=== PATIENT | female | born 1975 | race Caucasian/White ===

== ENCOUNTER → 2018-01-06 14:02 | Outpatient (CLI) | payer BC, SELFPAY ==
--- NOTE | 2018-01-06 14:15 | XR_ITS ---
EXAM: XR lumbar spine min 4V HISTORY: ITS.REASON: ACUTE LT SIDED LBP ORDERING PHYSICIAN: Feliberto Cesar MD PATIENT AGE: 42 years COMPARISON: None FINDINGS: Normal alignment. No fracture or dislocation. No lytic or blastic change. There is minimal osteophyte formation at L4 and L3 anteriorly and superiorly. There is a faint mixed density in the right pelvic region etiology indeterminate seen only on the AP view and may be due to artifact. IMPRESSION: No acute finding. Mild Lee change. Please see above for detail
== END ==
PROVIDERS: PCP Family Medicine; Visit Provider Family Medicine
DX: M54.42 Lumbago with sciatica, left side (principal)
CPT/HCPCS: 72110

== ENCOUNTER → 2018-08-01 12:36 | Outpatient (CLI) | payer BC, SELFPAY ==
--- NOTE | 2018-08-01 12:47 | NVE_ITS ---
Venous Exam Indications: 729.5 Pain in limb. IMPRESSIONS 1. There is no evidence of significant Reflux. 2. No evidence of deep or superficial vein thrombosis involving the left lower extremity Left lower extremity venous duplex evaluation. Doppler flow study including spectral analysis, color and bustillo scale imaging. Location: Vascular laboratory. Patient status: Outpatient. Tables: Venous flow and imaging: + +-------+ + Location Overall Flow properties + +-------+ + Left common femoral Patent Normal phasicity; spontaneous; normal augmentation; compressible + +-------+ + Left saphenofemoral junction Patent Compressible + +-------+ + Left profunda femoral Patent Compressible + +-------+ + Left femoral Patent Normal phasicity; spontaneous; normal augmentation; compressible + +-------+ + Left greater saphenous Patent Normal phasicity; spontaneous; normal augmentation; compressible + +-------+ + Left popliteal Patent Normal phasicity; spontaneous; normal augmentation; compressible + +-------+ + Left posterior tibial Patent Compressible + +-------+ + Left peroneal Patent Compressible + +-------+ + Left gastrocnemius Patent Compressible + +-------+ + Left soleal Patent Compressible + +-------+ + (Report amended ) Electronically signed by: Phong Gaitan [id number]
== END ==
PROVIDERS: PCP Family Medicine; Visit Provider Nurse Practitioner Family
DX: M79.605 Pain in left leg (principal)
CPT/HCPCS: 93971

== ENCOUNTER 2020-09-11 10:27 | Emergency (ER) | payer BC, SELFPAY ==
[2020-09-11 10:55] VITALS: BP 115/76; PULSE 79; RESP 20; TEMP 37.1; O2SAT 98; BMI 26.6
[2020-09-11 11:32] VITALS: BP 115/76; PULSE 79; RESP 20; TEMP 37.1; O2SAT 98
--- NOTE | 2020-09-11 11:32 | HMH.EDUTC ---
[facility] – [place] Disposition Clinical Impression: Exposure to COVID-19 virus Disposition: Home, Self-Care Condition on Discharge: Good Instructions: Preventing the Spread of Coronavirus Discharge Instructions Additional Instructions: Drink plenty of fluids. Take tylenol for pain or fever. Return if you begin to have difficulty breathing. Follow up with your regular doctor. GO TO THE ER FOR ANY WORSENING SYMPTOMS Referrals: Feliberto Cesar MD [Primary Care Provider] - Time of Disposition: 11:35 Medical Decision Making - Medical Records Medical records reviewed: No: I reviewed the patient's medical records. - Sulaiman Inquiry Pt receiving controlled substance: No Vital Signs: 09/11/20 10:55 09/11/20 11:32 Temperature 98.7 F 98.7 F Temperature Source Oral Pulse Rate 79 Pulse Rate [Right Brachial] 79 Respiratory Rate 20 20 Blood Pressure 115/76 Blood Pressure [Right Arm] 115/76 Blood Pressure Mean [Right Arm] 89 Blood Pressure Source [Right Arm] Automatic Cuff Blood Pressure Position [Right Arm] Sitting 02 Sat by Pulse Oximetry 98 Oxygen Delivery Method Room Air [facility] – [place] HPI - General Stated complaint: covid exposure Time Seen by Provider: 09/11/20 11:15 Mode of Arrival: Ambulatory Source of Information: Patient Limitations: No Limitations Description of Symptoms (Recalled from Triage Doc. by RN): PATIENT REQUESTING COVID TEST D/T EXPOSURE. TESTED POSITIVE YESTERDAY. STATES SHE RECEIVED HER SECOND COVID VACCINE ON FRIDAY AND HAD SYMPTOMS ON FRIDAY. SYMPTOMS HAVE SUBSIDED, C/O RUNNY NOSE TODAY HEENT Symptoms (Recalled from RN notes): Yes Resp Symptoms (Recalled from RN notes): No Skin Symptoms (Recalled from RN notes): No MS Symptoms (Recalled from RN notes): No Functional Status (Recalled from RN notes): WNL - History of Present Illness Provider Complaint: She states that her tested positive for covid-19 yesterday. She denies any symptoms except some achiness that she had on Friday (2 days ago) after getting her second covid vaccination (moderna). But these symptoms resolved quickly. - Related Data Home Medications Medication Instructions Recorded Confirmed Duloxetine HCl [Cymbalta] 60 mg PO DAILY 09/11/20 09/15/20 Omeprazole [Omeprazole 20mg 20 mg PO DAILY 09/11/20 09/15/20 Capsule] estradioL [Estradiol] 1 mg PO DAILY 09/11/20 09/15/20 Allergies Allergy/AdvReac Type Severity Reaction Status Date / Time No Known Allergies Allergy Verified 09/15/20 11:16 - Worker's Comp Is this a Worker's Comp case?: No H History - Hepatitis A Screen Drug use history?: No High risk sexual behaviors?: No History of sexually transmitted infection?: No Currently employed?: No Childcare worker?: No Do you have indoor plumbing?: Yes Do you have electricity?: Yes Attestation statement:: This patient has been screened for Hepatitis A risk factors. I have reviewed the patient's past medical history: Yes Medical History: Reports:: Diabetes Mellitus Type 2 - Social History Alcohol Intake: never Occupational Status: employed Comment: Strong family history of DVT, her mother has had one, also she has multiple cousins that have had them also. ROS Obtained: Yes All systems reviewed & no additional complaints - Constitutional Constitutional: Reports system reviewed and no additional complaints, except as docu - Eyes Eyes: Reports system reviewed and no additional complaints, except as docu - ENT Ears, Nose, Mouth, and Throat: Reports system reviewed and no additional complaints, except as docu - Cardiovascular Cardiovascular: Reports system reviewed and no additional complaints, except as docu - Respiratory Respiratory: Reports system reviewed and no additional complaints, except as docu - Gastrointestinal Gastrointestingal: Reports: system reviewed and no additional complaints, except as docu Physical Exam - General General appearance: alert,
== END 2020-09-11 11:42 | disposition home or self-care (01) ==
PROVIDERS: Emergency Provider Nurse Practitioner Family; PCP Family Medicine
DX: Z20.822 Contact with and (suspected) exposure to COVID-19 (principal)
CPT/HCPCS: 99202; G0463; U0003

== ENCOUNTER 2020-09-15 11:02 | Emergency (ER) | payer BC, SELFPAY ==
[2020-09-15 11:10] VITALS: BP 102/72; PULSE 82; RESP 18; TEMP 36.9; O2SAT 98; BMI 30.5
--- NOTE | 2020-09-15 11:18 | HMH.EDUTC ---
[facility] – [place] Disposition Clinical Impression: Exposure to COVID-19 virus Disposition: Home, Self-Care Condition on Discharge: Good Instructions: Preventing the Spread of Coronavirus Discharge Instructions Referrals: Feliberto Cesar MD [Primary Care Provider] - Time of Disposition: 11:20 Medical Decision Making - Sulaiman Inquiry Pt receiving controlled substance: No Vital Signs: 09/15/20 11:10 Temperature 98.4 F Temperature Source Oral Pulse Rate [Right Brachial] 82 Respiratory Rate 18 Blood Pressure [Right Arm] 102/72 L Blood Pressure Mean [Right Arm] 82 Blood Pressure Source [Right Arm] Automatic Cuff Blood Pressure Position [Right Arm] Sitting 02 Sat by Pulse Oximetry 98 Oxygen Delivery Method Room Air Orders (Tests/Meds): ORDERS Category Date Time Status Covid-19 Nasal PCR ([facility]) Routine Lab 09/15/20 11:04 Ordered [facility] – [place] HPI - General Stated complaint: covid test Time Seen by Provider: 09/15/20 11:18 Mode of Arrival: Ambulatory Source of Information: Patient Limitations: No Limitations Description of Symptoms (Recalled from Triage Doc. by RN): Covid retest HEENT Symptoms (Recalled from RN notes): No Resp Symptoms (Recalled from RN notes): No Skin Symptoms (Recalled from RN notes): No MS Symptoms (Recalled from RN notes): No Functional Status (Recalled from RN notes): wnl - History of Present Illness Provider Complaint: Patient's tested positive for COVID19 5 days ago after developing symptoms 1 week ago. Patient needs COVID19 test to return to work. No symptoms at this time and she actually got 2nd vaccine the same day he started feeling poorly. Relieving factors: none Exacerbating factors: none Associated symptoms: denies other symptoms Treatments prior to arrival: none - Related Data Home Medications Medication Instructions Recorded Confirmed Duloxetine HCl [Cymbalta] 60 mg PO DAILY 09/11/20 09/15/20 Omeprazole [Omeprazole 20mg 20 mg PO DAILY 09/11/20 09/15/20 Capsule] estradioL [Estradiol] 1 mg PO DAILY 09/11/20 09/15/20 Allergies Allergy/AdvReac Type Severity Reaction Status Date / Time No Known Allergies Allergy Verified 09/15/20 11:16 - Worker's Comp Is this a Worker's Comp case?: No [facility] History - Hepatitis A Screen Drug use history?: No High risk sexual behaviors?: No History of sexually transmitted infection?: No Currently employed?: No Childcare worker?: No Do you have indoor plumbing?: Yes Do you have electricity?: Yes Attestation statement:: This patient has been screened for Hepatitis A risk factors. I have reviewed the patient's past medical history: Yes Medical History: Reports:: Diabetes Mellitus Type 2 - Social History Alcohol Intake: never Occupational Status: employed Comment: Strong family history of DVT, her mother has had one, also she has multiple cousins that have had them also. ROS Obtained: Yes All systems reviewed & no additional complaints Physical Exam - General General appearance: alert, in no apparent distress - Head Head exam: normocephalic - Eye Eye exam: Present: PERRL - Respiratory Respiratory exam: Present: normal lung sounds bilaterally - Cardiovascular Cardiovascular exam: Present: regular rate, normal rhythm - Neurological Exam Neurological exam: Present: alert, oriented X3 - Psychiatric Psychiatric exam: Present: normal affect, normal mood - Skin Skin exam: Present: warm, dry, intact
[2020-09-15 11:24] VITALS: BP 102/72; PULSE 82; RESP 18; TEMP 36.9; O2SAT 98
== END 2020-09-15 11:24 | disposition home or self-care (01) ==
PROVIDERS: Emergency Provider Physician Assistant; PCP Family Medicine
DX: Z20.822 Contact with and (suspected) exposure to COVID-19 (principal); E11.9 Type 2 diabetes mellitus without complications
CPT/HCPCS: 99202; G0463; U0003

== ENCOUNTER 2021-03-22 09:28 | Emergency (ER) | payer BC, SELFPAY ==
[2021-03-22 10:20] VITALS: BP 139/87; PULSE 97; RESP 14; TEMP 37.1; O2SAT 99; BMI 31.6
[2021-03-22 11:00] VITALS: BP 139/87; PULSE 97; RESP 14; TEMP 37.1; O2SAT 99
--- NOTE | 2021-03-22 11:06 | HMH.EDUTC ---
[facility] – [place] Disposition Clinical Impression: Viral syndrome Disposition: Home, Self-Care Condition on Discharge: Good Instructions: DI for Viral Syndrome, DI for COVID-19 (Suspected or Confirmed ), Preventing the Spread of Coronavirus Discharge Instructions Additional Instructions: Drink plenty of fluids. Take tylenol or ibuprofen for pain or fever. Take the medications as directed. Follow up with your regular doctor. GO TO THE ER FOR ANY WORSENING SYMPTOMS Quarantine until you know the results of your covid-19 test. If it is positive, the health department should call you and give you further instructions about your length of Quarantine and other things. Notify your school or workplace of your results and follow their instructions regarding return to work/school. The cough medication (promethazine dm) will make you drowsy, so don't drive or operate heavy machinery after taking it. Prescriptions: Brompheniramine/Pseudoephed/Dm [Bromfed Dm Cough Syrup] 5 ml PO Q6HP PRN #240 ml PRN Reason: Cough Transmission Status: Received by [facility] Promethazine/Dextromethorphan [Promethazine-Dm Syrup] 5 ml PO Q6HP PRN #240 ml PRN Reason: Cough Transmission Status: Received by [facility] Azithromycin [Z-Chandrakant 250mg Tab*] 250 mg PO UD DOSE PK #6 tab Transmission Status: Received by [facility] Referrals: Feliberto Cesar MD [Primary Care Provider] - Forms: Work/School Release Time of Disposition: 11:11 Medical Decision Making - Medical Records Medical records reviewed: No: I reviewed the patient's medical records. - Sulaiman Inquiry Pt receiving controlled substance: No Vital Signs: 03/22/21 10:20 03/22/21 11:00 Temperature 98.8 F 98.8 F Temperature Source Oral Pulse Rate 97 H Pulse Rate [Right Brachial] 97 H Respiratory Rate 14 14 Blood Pressure 139/87 Blood Pressure [Right Arm] 139/87 Blood Pressure Mean [Right Arm] 104 Blood Pressure Source [Right Arm] Automatic Cuff Blood Pressure Position [Right Arm] Sitting 02 Sat by Pulse Oximetry 99 Oxygen Delivery Method Room Air [facility] [place] HPI - General Stated complaint: covid test Time Seen by Provider: 03/22/21 11:06 Mode of Arrival: Ambulatory Source of Information: Patient Limitations: No Limitations Description of Symptoms (Recalled from Triage Doc. by RN): PATIENT C/O COUGH, DIZZINESS, FEVER, RUNNY NOSE, BODY ACHES, AND HEADACHE SINCE YESTERDAY. RECENTLY TESTED POSITIVE FOR COVID HEENT Symptoms (Recalled from RN notes): Yes Resp Symptoms (Recalled from RN notes): Yes Skin Symptoms (Recalled from RN notes): No MS Symptoms (Recalled from RN notes): No Functional Status (Recalled from RN notes): WNL - History of Present Illness Provider Complaint: She states that for the past 2 days she has felt bad, had body aches, dry nonproductive cough, scratchy throat. She has been exposed to covid-19. She has not been vaccinated for covid-19. - Related Data Home Medications Medication Instructions Recorded Confirmed Duloxetine HCl [Cymbalta] 60 mg PO DAILY 09/11/20 09/15/20 Omeprazole [Omeprazole 20mg 20 mg PO DAILY 09/11/20 09/15/20 Capsule] estradioL [Estradiol] 1 mg PO DAILY 09/11/20 09/15/20 Previous Rx's Medication Instructions Recorded Azithromycin [Z-Chandrakant 250mg Tab*] 250 mg PO UD DOSE PK #6 tab 03/22/21 Brompheniramine/Pseudoephed/Dm 5 ml PO Q6HP PRN #240 ml 03/22/21 [Bromfed Dm Cough Syrup] Promethazine/Dextromethorphan 5 ml PO Q6HP PRN #240 ml 03/22/21 [Promethazine-Dm Syrup] Allergies Allergy/AdvReac Type Severity Reaction Status Date / Time No Known Allergies Allergy Verified 09/15/20 11:16 - Worker's Comp Is this a Worker's Comp case?: No [facility] History - Hepatitis A Screen Drug use history?: No High risk sexual behaviors?: No History of sexually transmitted infection?: No Currently employed?: No Childcare worker?: No Do you have indoor plumbing?: Yes Do you
--- NOTE | 2021-03-22 17:56 | PC.NURSE ---
PATIENT NOTIFIED OF POSITIVE COVID TEST AT THIS TIME
== END 2021-03-22 11:18 | disposition home or self-care (01) ==
PROVIDERS: Emergency Provider Nurse Practitioner Family; PCP Family Medicine
DX: U07.1 COVID-19 (principal); E11.9 Type 2 diabetes mellitus without complications
CPT/HCPCS: 99202; G0463; U0003

== ENCOUNTER 2021-03-26 07:58 | Outpatient (CLI) | payer BC, SELFPAY ==
[2021-03-26] VITALS (9 sets, daily range): BP systolic 96–116; BP diastolic 53–73; PULSE 60–70; RESP 16; TEMP 36.6–37.2; O2SAT 96–98
== END 2021-03-26 10:14 | disposition home or self-care (01) ==
LOC: INF 07:59
PROVIDERS: PCP Family Medicine; Visit Provider Family Medicine
DX: U07.1 COVID-19 (principal)
CPT/HCPCS: 96365

== ENCOUNTER → 2021-11-23 15:43 | Outpatient (CLI) | payer BC, SELFPAY ==
--- NOTE | 2021-11-23 15:47 | MM_ITS ---
PROCEDURE INFORMATION: Exam: Bilateral Screening 3D Mammography Exam date and time: 11/23/2021 3:58 PM Age: 46 years old Clinical indication: Screening examination TECHNIQUE: Imaging protocol: Bilateral Screening tomosynthesis and 2D mammography including computer-aided detection (CAD) when performed. COMPARISON: [facility]MSB DIG MAMM-SCREEN STEPHANIE 02/13/2016 8:37 AM FINDINGS: MAMMOGRAPHY: Breast composition: There are scattered areas of fibroglandular density. Mass: None. Architectural distortion: None. Calcifications: No suspicious calcifications. Asymmetric density: None. Skin thickening: None. Axillary adenopathy: None. IMPRESSION: No mammographic evidence of malignancy. Annual screening is recommended unless otherwise clinically indicated. ASSESSMENT: BI-RADS Category 1: Negative
== END ==
PROVIDERS: PCP Family Medicine; Visit Provider Physician Assistant
DX: Z12.31 Encounter for screening mammogram for malignant neoplasm of breast (principal)
CPT/HCPCS: 77063; 77067

== ENCOUNTER → 2021-11-24 09:58 | Outpatient (CLI) | payer BC, SELFPAY ==
[2021-11-24 11:22] LABS: Alanine Aminotransferase 24 U/L (12-78); Albumin Level 3.8 g/dl (3.5-5.0); Albumin/Globulin Ratio 1.5 (1.1-1.8); Alkaline Phosphatase 45 U/L (38-126); Aspartate Amino Transferase 26 U/L (14-36); Bilirubin,Total 0.4 mg/dl (0.2-1.3); Blood Urea Nitrogen 15 mg/dl (7-17); Calcium 8.9 mg/dl (8.4-10.2); Carbon Dioxide 30 mmol/L (22.0-30.0); Chloride 106 mmol/L (98-107); Chol/HDL Ratio 3.3 (1-3.5); Cholesterol 211 mg/dl (140-200); Estimated Glomerular Filt Rate 77 ml/min (>60); GFR (African American) 93 ML/MIN (>60); Globulin 2.5 g/dL (1.3-3.2); Glucose 94 mg/dl (74-100); HDL Cholesterol 63 mg/dl (40-60); Sodium 140 mmol/L (136-145); Total Protein,Serum 6.3 g/dl (6.3-8.2); Triglycerides 141 mg/dl (30-150); VLDL Cholesterol 28 mg/dL (0-40)
[2021-11-24 11:33] LABS: Direct LDL Cholesterol 104.96 mg/dL (100-129)
[2021-11-24 11:39] LABS: 25-OH Vitamin D, Total 37.6 ng/mL (30-100)
[2021-11-24 11:41] LABS: Hemoglobin A1C 5.4 % (4.0-6.0)
[2021-11-24 11:53] LABS: Thyroid Stimulating Hormone 0.69 uIU/mL (0.465-4.68)
== END ==
PROVIDERS: Visit Provider Physician Assistant
DX: E78.2 Mixed hyperlipidemia; R63.5 Abnormal weight gain; R79.89 Other specified abnormal findings of blood chemistry; Z86.39 Personal history of other endocrine, nutritional and metabolic disease
CPT/HCPCS: 36415; 80053; 80061; 82306; 83036; 84443

== ENCOUNTER 2022-10-07 18:45 | Emergency (ER) | payer BC, SELFPAY ==
[2022-10-07 19:40] VITALS: BP 149/81; PULSE 74; RESP 20; TEMP 36.8; O2SAT 99; BMI 32.1
--- NOTE | 2022-10-07 20:20 | EXP.UTC ---
Discharge Plan Disposition Patient Disposition: Home, Self-Care Condition: Good Prescriptions Prescriptions: New benzonatate 100 mg capsule 100 mg PO TID PRN (Reason: cough) Qty: 30 0RF guaifenesin [Mucinex] 600 mg tablet extended release 12hr 600 - 1,200 mg PO BID PRN (Reason: cough) Qty: 20 0RF azithromycin [Zithromax Z-Chandrakant] 250 mg tablet See Rx Instructions .ROUTE .COMPLEX 5 Days Qty: 6 0RF Rx Instructions: For 250 mg dose pack: take 500 mg today (day 1), then 250 mg for 4 days (days 2-5) prednisone [prednisone] 20 mg tablet 20 mg PO BID 5 Days Qty: 10 0RF albuterol sulfate [Proventil HFA] 90 mcg/actuation HFA aerosol inhaler 1 inh inhalation Q6H PRN (Reason: shortness of breath or wheezing) Qty: 8.5 0RF No Action estradiol 1 MG tablet 1 mg PO DAILY omeprazole 20 MG capsule,delayed release(DR/EC) 20 mg PO DAILY duloxetine 60 MG capsule,delayed release(DR/EC) 60 mg PO DAILY Referrals Follow up/Referrals: Feliberto Cesar MD [Primary Care Provider] - See instructions Activity Restrictions/Add. Instructions Additional Instructions/Restrictions: Start antibiotic . Be sure to complete entire prescription even if feeling better Monitor temp. Tylenol every 4 hours as needed and / or ibuprofen every 6 hours as needed ( As long as your primary care physician has told you that it ok to take both. For fever/aches/pains ER if no less than 101 despite Tylenol or Motrin Humidifier/vaporizer or hot steamy shower Inhaler every 4-6 hours as needed like we discussed. If unsure how to use it, ask pharmacist to demonstrate how. Should help open airways and improve cough, wheezing, and shortness of breath Mucinex during the day for your cough and cough suppressant only at night. Be sure to drink lots of water. *Tessalon Perles will not cause drowsiness but use at bedtime to help stop cough so that you may get some rest. *Start steroid tomorrow. Helps with inflammation therefore, cough and wheezing. Follow directions on the package. Reviewed side effects. Patient reports taking them before. Follow up IMMEDIATELY for new or worsening of symptoms OR no noticeable improvement over the next 48-72 hours. 911 immediately for any life threatening symptoms such as chest pain or difficulty breathing Clinical Impressions Clinical Impression: Bronchitis Sinusitis Qualifiers: Sinusitis location: unspecified location Chronicity: unspecified Qualified Code(s): J32.9 - Chronic sinusitis, unspecified Stand Alone Forms Stand Alone Forms: Work/School Release Instructions Patient Instructions: Sinus Headache, Acute Bronchitis, DI for Sinusitis Discharge ED Provider: Florinda Benitez [facility] [place] General Stated complaint: Cough,Congestion,SOA,fever Mode of Arrival: Ambulatory Source of Information: Patient Limitations: No Limitations Time Seen by Provider: 10/07/22 20:20 Description of Symptoms (Recalled from Triage Doc. by RN): shortness of breath, fever, cough, URBAN, wheezing. HEENT Symptoms (Recalled from RN notes): Yes Resp Symptoms (Recalled from RN notes): No Skin Symptoms (Recalled from RN notes): No MS Symptoms (Recalled from RN notes): No Functional Status (Recalled from RN notes): n/ History of Present Illness Provider Complaint: Patient states that she has been sick for over a week States that she has been having sinus congestion, cough, chest congestion and non-productive cough State that at times she will cough so much feels like it makes her a little SOA States that she has been taking OTC medications but nothing is helping and she was worried and wanted to come in and get something before it got any worse States that in the past when she got sick like this she used inhaler Related Data Home Medications Medication Instructions Recorded Confirmed duloxetine 60 mg capsule,delayed 60 mg PO DAILY Depression 09/11/20 10/07/22 release estradiol 1
[2022-10-07 21:11] VITALS: BP 149/81; PULSE 74; RESP 20; TEMP 36.8; O2SAT 99
== END 2022-10-07 21:10 | disposition home or self-care (01) ==
PROVIDERS: Emergency Provider Nurse Practitioner; PCP Family Medicine
DX: J20.9 Acute bronchitis, unspecified (principal); J01.90 Acute sinusitis, unspecified; R50.9 Fever, unspecified
CPT/HCPCS: 96372; 99212; 99214; G0463; J0696

== ENCOUNTER 2022-11-01 16:28 | Emergency (ER) | payer BC, SELFPAY ==
[2022-11-01 16:35] VITALS: BP 128/78; PULSE 81; RESP 20; TEMP 36.9; O2SAT 97; BMI 34.0
--- NOTE | 2022-11-01 16:49 | EXP.UTC ---
Discharge Plan Disposition Patient Disposition: Home, Self-Care Condition: Good Prescriptions Prescriptions: New acyclovir 800 mg tablet 800 mg PO DIRECTED 7 Days Qty: 35 0RF Rx Instructions: One tablet five times daily for seven days No Action estradiol 1 MG tablet 2 mg PO DAILY omeprazole 20 mg capsule,delayed release(DR/EC) 20 mg PO DAILYP PRN (Reason: Acid Reflux) duloxetine 60 mg capsule,delayed release(DR/EC) 60 mg PO DAILY Label Comments: TAKE 1 CAPSULE BY MOUTH ONCE DAILY Wegovy 0.25 mg/0.5 mL Pen Injector 0.25 mg SQ WEEKLY Rx Instructions: administer weeks 1 through 4 of therapy Referrals Follow up/Referrals: Feliberto Cesar MD [Primary Care Provider] - See instructions Activity Restrictions/Add. Instructions Additional Instructions/Restrictions: Benadryl may help with itching Do not scratch Take medication as prescribed Topical calamine lotion may help to soothe the rash Clinical Impressions Clinical Impression: Shingles Instructions Patient Instructions: DI for Shingles, Shingles, Acyclovir Discharge ED Provider: Florinda Benitez [facility] [place] HPI General Stated complaint: rash Mode of Arrival: Ambulatory Source of Information: Patient Limitations: No Limitations Time Seen by Provider: 11/01/22 16:50 Description of Symptoms (Recalled from Triage Doc. by RN): PATIENT C/O RASH/WELPS TO LOWER LEG AND MID-BACK AREA THAT STARTED 5 DAYS AGO. AREAS ARE RED AND RAISED AND PATIENT C/O BURNING AND ITCHING HEENT Symptoms (Recalled from RN notes): No Resp Symptoms (Recalled from RN notes): No Skin Symptoms (Recalled from RN notes): Yes MS Symptoms (Recalled from RN notes): No Functional Status (Recalled from RN notes): WNL History of Present Illness Provider Complaint: Patient states that she had a rash on her left leg about 5 days ago that was a little like blistery and thought they may have been bug bitesStates that today she was having a burning/itching like pain on her left back and side and noticed a rash that has come out today and spread States that her shirt irritates when it touches it and it neves and itches worried she may have shingles Related Data Home Medications Medication Instructions Recorded Confirmed estradiol 1 mg tablet 2 mg PO DAILY HORMONE REPLACEMENT 09/11/20 11/01/22 duloxetine 60 mg capsule,delayed 60 mg PO DAILY Depression 11/01/22 11/01/22 release omeprazole 20 mg capsule,delayed 20 mg PO DAILYP PRN Acid Reflux 11/01/22 11/01/22 release semaglutide (weight loss) 0.25 0.25 mg SQ WEEKLY Weight loss 11/01/22 11/01/22 mg/0.5 mL subcutaneous pen injector (Wegovy) Previous Rx's Medication Instructions Recorded acyclovir 800 mg tablet 800 mg PO DIRECTED 7 days #35 11/01/22 tabs Allergies Allergy/AdvReac Type Severity Reaction Status Date / Time No Known Allergies Allergy Verified 10/07/22 20:00 Worker's Comp Is this a Worker's Comp case?: No [facility] Disclaimer: The information contained in this section may have been updated after the patient was seen, as this information can be updated by other users. Social History (Updated 10/07/22 @ 21:01 by Florinda Benitez APRN) Smoking Status: Unknown if ever smoked alcohol intake: never current occupational status: employed Travel in the last 8 weeks: None ROS Obtained: Yes All systems reviewed & no additional complaints except as documented and Yes Systems reviewed as appropriate & no additional complaints except as documented Constitutional Constitutional: Reports system reviewed and no additional complaints, except as documented and Reports as per HPI ENT Ears, Nose, Mouth, and Throat: Reports system reviewed and no additional complaints, except as documented and Reports as per HPI Cardiovascular Cardiovascular: Reports system reviewed and no additional complaints, except as documented and Reports as per HPI Respiratory Respiratory: Repor
[2022-11-01 17:00] VITALS: BP 128/78; PULSE 81; RESP 20; TEMP 36.9; O2SAT 97
== END 2022-11-01 17:02 | disposition home or self-care (01) ==
PROVIDERS: Emergency Provider Nurse Practitioner; PCP Family Medicine
DX: B02.8 Zoster with other complications (principal)
CPT/HCPCS: 99212; 99214; G0463

== ENCOUNTER 2023-08-06 16:32 | Outpatient (CLI) | payer BC, SELFPAY ==
--- OUTSIDE RECORDS SUMMARY | 2023-08-06 16:34 | XMS_ITS | Patient Health Record ---
Author Name Unknown Organization [facility] Address [address] [facility] [address] [address] [address] [place] [address] Care Team Providers Care Behavioral Health Clinician Name Role Phone Jia Costa Unavailable [phone] Irene Rao Unavailable [phone] Reason For Referral Reason Dr. Dominic Booker in [facility] for screening colonoscopy Diagnosis 1 Screening for colon cancer (Z12.11) Referral Organization [facility] Referring Provider First Name Irene Referring Provider Last Name Maira Referring Provider Speciality OB - Gynec ology Referred Provider Specialty Gastroentero logy General Notes Katherine Bateman 11/18 02:55:29 PM >Faxed referral to Dr Lou office in [facility], once received they will call and schedule pt an appt with there office Referral Priority Routine Medications Medication SIG (Take, Route, Fr equency, Duration) Notes Start Date End Date Status Estradiol 2 MG 1 tablet Orally Once a day for 90 days 11/18/2022 Active Estradiol 2 MG 1 tablet Orally Once a day for 90 days Active Omeprazole 20 MG Oral for 90 Days Active Wegovy Active DULoxetine HCl 60 MG Oral for 30 Days Active Social History Tobacco Use: Social History Observation Description Date Details (start date - stop date) Never Smoker NA - NA Sex Assigned At : Social History Observation Description Sex Assigned At Female Tobacco Use/Smoking Question Answer Notes Are you a nonsmoker Alcohol Screen Question Answer Notes Did you have a drink contain ing alcohol in the past year? Yes How often did you have a dri nk containing alcohol in the past year? Monthly or less (1 point) Points 1 Interpretation Negative Vital Signs Blood pressure diastolic 70 mm Hg 11/18/2022 Height 68 in 11/18/2022 Blood pressure systolic 124 mm Hg 11/18/2022 Weight 221.4 lbs 11/18/2022 BMI 33.66 kg/m2 11/18/2022 Encounters Encounter [facility] Date [facility] [address] [place] [address] 11/16/2022 Irene Duartemayda [facility] [address] REPLACED [address] [facility] [address] [place] [address] 11/18/2022 Irene Duartemayda Encounter for gynecological examination (general) (routine) without abnormal findings Z01.419 ; Visit for screening mammogram Z12.31 ; Postmenopausal HRT (hormone replacement therapy) Z79.890 and Screening for colon cancer Z12.11 Assessments Encounter Date Diagnosis (ICD Code) Assessment Notes Treat ment Notes Treatment Clinical Notes 11/18/2022 Encounter for gynecological examination (general) (routine) without abnormal findings (ICD-10 - Z01.419) 11/18/2022 Visit for screening mammogram (ICD-10 - Z12.31) 11/18/2022 Postmenopausal HRT (hormone replacement therapy) (ICD-10 - Z79.890) 11/18/2022 Screening for colon cancer (ICD-10 - Z12.11) Plan Of Treatment Next Appt Details Provider Name:Irene Rao, 11/20/2023 10:15:00 AM, [address] [facility] [facility], [place], [address], Insurance Providers Payer Name Payer Address Payer Phone Subscriber Number Group Number Insured Name Patient Relationship to Insured Coverage Start Date Coverage End Date [employer] [address] [place] [address] [id number] Ailyn Gerber Self - patient is the insured 2 Medical (General) History Medical History History ICD Code abnormal pap acid reflux anxiety depression diabetes uterine fibroid obesity UYI Yeast infections Menometrorrhagia Surgical History Surgery Date(Month/Year) c/s x2 07-17-2020 [facility] BSO myomectomy gastric sleeve 2018 D&C 1998 Hospitalization History Reason Date(Month/Year) x2
--- NOTE | 2023-08-06 16:47 | MM_ITS ---
PROCEDURE INFORMATION: Exam: MG Bilateral Screening 3D Mammography Exam date and time: 08/06/2023 4:32 PM Age: 47 years old Clinical indication: Screening examination. Paternal aunt had breast cancer. TECHNIQUE: Imaging protocol: Bilateral Screening tomosynthesis and 2D mammography including computer-aided detection (CAD) when performed. COMPARISON: 1. MG MM DIG SCREENING MAMM BI W/CAD 11/23/2021 3:58 PM 2. MG DMSB DIG MAMM-SCREEN STEPHANIE 02/13/2016 8:37 AM FINDINGS: MAMMOGRAPHY: Breast composition: There are scattered areas of fibroglandular density. Mass: None. Architectural distortion: None. Calcifications: No suspicious calcifications. Asymmetric density: None. Skin thickening: None. Axillary adenopathy: None. IMPRESSION: No mammographic evidence of malignancy. Annual screening is recommended unless otherwise clinically indicated. ASSESSMENT: BI-RADS Category 1: Negative
== END 2023-08-06 23:59 ==
LOC: RAD 16:33
PROVIDERS: PCP Family Medicine; Visit Provider Family Medicine
DX: Z12.31 Encounter for screening mammogram for malignant neoplasm of breast (principal)
CPT/HCPCS: 77063; 77067

== ENCOUNTER 2023-09-05 11:39 | Outpatient (CLI) | payer BC, SELFPAY ==
--- NOTE | 2023-09-05 11:47 | XR_ITS ---
FINAL REPORT CLINICAL HISTORY: BILATERAL BACK PAIN COMPARISON: None FINDINGS: 5 views of the lumbar spine were obtained. There is no evidence of fracture or dislocation. The vertebral alignment is normal. Mild degenerative changes present with osteophyte formation. Facet arthropathy is present in the lower lumbar spine. Mild vascular calcifications are identified. There are postop changes in the upper abdomen. No paraspinous soft tissue abnormalities identified. IMPRESSION: No acute bony abnormality. Degenerative change as described. Reviewed, Interpreted and Dictated by Casey Avina III, MD Transcribed by Delphine Gar Authenticated and . [facility]
== END 2023-09-05 23:59 ==
LOC: RAD 11:41
PROVIDERS: PCP Family Medicine; Visit Provider Family Medicine
DX: M47.816 Spondylosis without myelopathy or radiculopathy, lumbar region (principal); M54.50 Low back pain, unspecified
CPT/HCPCS: 72110

== ENCOUNTER 2024-03-16 16:03 | Emergency (ER) | payer BC, SELFPAY ==
[2024-03-16] VITALS (8 sets, daily range): BP systolic 110–126; BP diastolic 68–83; PULSE 70–84; RESP 16–18; TEMP 36.8–37; O2SAT 95–100; BMI 24.3
--- NOTE | 2024-03-16 16:22 | PC.NURSE ---
pt arrived to ed from [facility] via wheelchair
--- NOTE | 2024-03-16 16:32 | PC.NURSE ---
DR PIÑA AT BEDSIDE
--- NOTE | 2024-03-16 17:08 | PC.NURSE ---
I rounded on pt and took her a box of tissues. No needs voiced. pt states her pain has slightly improved. call scott in reach.
--- NOTE | 2024-03-16 17:09 | HMH.EDGENADL ---
Discharge Plan Disposition Patient Disposition: Home, Self-Care Prescriptions Prescriptions: New amoxicillin-pot clavulanate 875-125 mg tablet 1 tab PO BID 7 Days Qty: 14 0RF No Action estradiol 1 MG tablet 2 mg PO DAILY omeprazole 20 mg capsule,delayed release(DR/EC) 20 mg PO DAILYP PRN (Reason: Acid Reflux) duloxetine 60 mg capsule,delayed release(DR/EC) 60 mg PO DAILY Patient Comments: TAKE 1 CAPSULE BY MOUTH ONCE DAILY Wegovy 0.25 mg/0.5 mL Pen Injector 0.25 mg SQ WEEKLY Rx Instructions: administer weeks 1 through 4 of therapy acyclovir 800 mg tablet 800 mg PO DIRECTED 7 Days Qty: 35 0RF Rx Instructions: One tablet five times daily for seven days Referrals Follow up/Referrals: Feliberto Cesar MD [Primary Care Provider] - See instructions Activity Restrictions/Add. Instructions Additional Instructions/Restrictions: Call your family doctor to establish care for this visit to the emergency department and schedule follow-up within 48 hours to ensure improvement. If you have any worsening of your condition or any other concerning signs or symptoms, return to the emergency department or your primary care doctor for further evaluation. Talk to your family doctor about neurology follow-up with Dr. Madera regarding head imaging with mild ventriculomegaly (fluid spaces in the brain). Augmentin twice daily for 7 days. Take Tylenol 1000 mg every 6 hours (4 times daily) and ibuprofen 400 mg every 6 hours (4 times daily) as needed with food and water to prevent GI upset and kidney damage. Clinical Impressions Clinical Impression: Headache, Bacterial sinusitis Print Language Print Language: Singaporean Discharge ED Provider: Koko Steele General Adult HPI General Chief complaint: Headache Stated complaint: URBAN, tunnel vision Time Seen by Provider: 03/16/24 16:29 Mode of Arrival: Wheelchair Source of Information: Patient Limitations: No Limitations Description of Symptoms (Recalled from ER Triage Doc. by RN): PT REPORTS HEAD CONGESTION AND NOT FEELING WELL FOR 2-3 DAYS. REPORTS HEADACHE THAT HAS BEEN ONGOING, WORSE TODAY. LIGHT SENSITIVE, TUNNEL VISION. REPORTS CHILLS AND PAIN TO BILATERAL SIDE UNDER RIBS. History of Present Illness HPI narrative: Please note that above description of symptoms, in this electronic medical record under categorization of recalled from ER triage doctor by RN are reflective of an initial nursing assessment, however, is not reflective of my full history and physical exam that was personally taken and clarified. Consequentially, this preceding description of symptoms, which may include the patient's categorized chief complaint in the EMR, do not reflect my personal clinical impression, and the ultimate description of history of present illness and patient stated complaints should be deferred to this section of the note. Unless stated otherwise or congruent with this section of the note, additional signs, symptoms, or incongruence should be interpreted as inaccurate with my clinical impression. Related Data Home Medications ?Medication ?Instructions ?Recorded ?Confirmed estradiol 1 mg tablet 2 mg PO DAILY HORMONE REPLACEMENT 09/11/20 11/01/22 duloxetine 60 mg capsule,delayed 60 mg PO DAILY Depression 11/01/22 11/01/22 release omeprazole 20 mg capsule,delayed 20 mg PO DAILYP PRN Acid Reflux 11/01/22 11/01/22 release semaglutide (weight loss) 0.25 0.25 mg SQ WEEKLY Weight loss 11/01/22 11/01/22 mg/0.5 mL subcutaneous pen injector (Sana) Previous Rx's ?Medication ?Instructions ?Recorded acyclovir 800 mg tablet 800 mg PO DIRECTED 7 days #35 11/01/22 tabs amoxicillin 875 mg-potassium 1 tab PO BID 7 days #14 tabs 03/16/24 clavulanate 125 mg tablet Allergies Allergy/AdvReac Type Severity Reaction Status Date / Time No Known Allergies Allergy Verified 10/07/22 20:00 [facility] Disclaimer: The information c
--- NOTE | 2024-03-16 17:19 | CT_ITS ---
PROCEDURE INFORMATION: Exam: CTA Head With Contrast, Venography Exam date and time: 03/16/2024 6:02 PM Age: 48 years old Clinical indication: Headache; Additional info: On estrogen, severe frontal URBAN with blurry vision TECHNIQUE: Imaging protocol: Computed tomography angiography of the head with contrast. Exam focused on the veins. 3D rendering (Not supervised by radiologist): MIP and/or 3D reconstructed images were created by the technologist. Radiation optimization: All CT scans at this facility use at least one of these dose optimization techniques: automated exposure control; mA and/or kV adjustment per patient size (includes targeted exams where dose is matched to clinical indication); or iterative reconstruction. Contrast material: ISOVUE 370; Contrast volume: 80 ml; Contrast route: INTRAVENOUS (IV); COMPARISON: No relevant prior studies available. FINDINGS: Superior sagittal sinus: Patent. Straight sinus: Patent. Transverse sinuses: Patent. Sigmoid sinuses: Patent. Internal jugular veins: Limited visualized internal jugular veins are patent. Cerebral ventricles: There is ventriculomegaly. Paranasal sinuses: Moderate to severe paranasal sinus disease. Soft tissues: Unremarkable. IMPRESSION: 1. Negative for dural venous sinus thrombosis. 2. Prominent ventriculomegaly which appears disproportionate for volume loss, normal pressure hydrocephalus not excluded.
--- NOTE | 2024-03-16 17:20 | PC.NURSE ---
Addendum entered by Emeli Andrade RN 03/16/24 17:38: TIME OF NOTE SHOULD HAVE BEEN 1620 Original Note: PATIENT IN [facility] LOBBY AT THIS TIME. PATIENT C/O SEVERE HEADACHE WITH BRIGHT PERIPHERIAL VISION. PATIENT STATES IT IS THE WORSE HEADACHE SHE HAS EVER HAD. PATIENT TRANSPORTED TO ER VIA WHEELCHAIR AND [facility] STAFF ASSISTANCE AT THIS TIME. PATIENT'S AT BEDSIDE
[2024-03-16 17:25] LABS: Chloride 105 mmol/L (98-107); Potassium 3.9 mmoL/L (3.5-5.1); Sodium 138 mmol/L (136-145)
[2024-03-16 17:28] LABS: Anion Gap 8.9 mEq/L (5-15); Blood Urea Nitrogen 14 mg/dl (7-17); Calcium 8.7 mg/dl (8.4-10.2); Carbon Dioxide 28 mmol/L (22.0-30.0); Creatinine Clearance Estimated 99 mL/min (50-200); Estimated Glomerular Filt Rate 76 ml/min (>60); GFR (African American) 92 ML/MIN (>60); Glucose 90 mg/dl (74-100)
== END 2024-03-16 19:11 | disposition home or self-care (01) ==
LOC: UTC 16:07 → ER 16:22
PROVIDERS: Emergency Provider Emergency Medicine; PCP Family Medicine
DX: G44.89 Other headache syndrome (principal); J01.80 Other acute sinusitis; H53.8 Other visual disturbances
CPT/HCPCS: 70496; 80048; 96365; 96375; 99285; J0131; J0780; J1100; J1200; J1885; J3475; J7120; Q9967

== ENCOUNTER 2024-04-12 09:16 | Emergency (ER) | payer BC, SELFPAY ==
[2024-04-12 09:43] VITALS: BP 101/62; PULSE 69; RESP 20; TEMP 36.4; O2SAT 100; BMI 25.0
--- NOTE | 2024-04-12 09:51 | ED_ITS ---
Discharge Plan Disposition Patient Disposition: Home, Self-Care Condition: Good Prescriptions Prescriptions: New cefdinir 300 mg capsule 300 mg PO BID 10 Days Qty: 20 0RF phenazopyridine [Pyridium] 200 mg tablet 200 mg PO Q8H 2 Days Qty: 6 0RF fluconazole 150 mg tablet 150 mg PO ONCE Qty: 1 0RF No Action amoxicillin-pot clavulanate 875-125 mg tablet 1 tab PO BID 7 Days Qty: 14 0RF fluconazole 150 mg tablet 150 mg PO Q3D Qty: 2 0RF Rx Instructions: may repeat second dose 72 hrs after first dose if symptoms persist estradiol 1 MG tablet 2 mg PO DAILY omeprazole 20 mg capsule,delayed release(DR/EC) 20 mg PO DAILYP PRN (Reason: Acid Reflux) duloxetine 60 mg capsule,delayed release(DR/EC) 60 mg PO DAILY Patient Comments: TAKE 1 CAPSULE BY MOUTH ONCE DAILY Wegovy 0.25 mg/0.5 mL Pen Injector 0.25 mg SQ WEEKLY Rx Instructions: administer weeks 1 through 4 of therapy acyclovir 800 mg tablet 800 mg PO DIRECTED 7 Days Qty: 35 0RF Rx Instructions: One tablet five times daily for seven days Referrals Follow up/Referrals: Feliberto Cesar MD [Primary Care Provider] - See instructions Activity Restrictions/Add. Instructions Additional Instructions/Restrictions: *Increase fluids. Water not Soda or Tea *Start antibiotic immediately and be sure to take as ordered for the FULL length of time although you should start to see improvement over the next 48 hours *Pyridium as needed Remember this medication will turn your urine . This is normal but it will stain what ever it gets on *You should not use Pyridium for more than 48 hours. If so , follow up with your primary physician to review urine culture and ensure that antibiotic is adequate for infection *Be SURE to follow up anytime for new or worsening symptoms with your family doctor. AND in 48 hours for urine culture results with your family doctor, if you do not have a doctor then you may call back to the [facility] for urine culture results and further treatment. We do recommend that you choose and establish care with a Primary Care Physician. ?AND follow up with them ?in 10-14 days to repeat UA to ensure infection is resolved and blood no longer present *Be sure to let your PCP know that we sent urine cultures from the [facility] so they can follow up to ensure that you area the on the correct antibiotic Call your doctor office and make appointment for 48 hours (2 days from today) ?to follow up and get the results of your urine culture and further treatment Follow up immediately for new or worsening symptoms Clinical Impressions Clinical Impression: Urinary tract infection Instructions Patient Instructions: DI for Urinary Tract Infection (UTI), Cefdinir, Phenazopyridine Print Language Print Language: Greek Discharge ED Provider: Florinda Benitez [facility] General Stated complaint: Pain and frquent uriation Mode of Arrival: Ambulatory Source of Information: Patient Time Seen by Provider: 04/12/24 09:51 Description of Symptoms (Recalled from Triage Doc. by RN): PAIN WITH URINATING AND SPASMS IN BACK HEENT Symptoms (Recalled from RN notes): No Resp Symptoms (Recalled from RN notes): No Skin Symptoms (Recalled from RN notes): No MS Symptoms (Recalled from RN notes): No Functional Status (Recalled from RN notes): WNL History of Present Illness Provider Complaint: Patient states that she noticed yesterday that she was having achy like feeling in her lower back and some burning with urination and feeling of urgency and frequency and this morning it seemed to be getting worse so she took an AZO and came to get checked Denies fever, chills, and denies hx of kidney stones Related Data Home Medications ?Medication ?Instructions ?Recorded ?Confirmed estradiol 1 mg tablet 2 mg PO DAILY HORMONE REPLACEMENT 09/11/20 11/01/22 duloxetine 60 mg capsule,delayed 60 mg PO DAILY Depression 11/01/22 11/01/22 release omeprazole 20 mg capsule,delayed 20 mg PO DAILYP PRN Acid Reflux 11/01/22 11/01/22 release semaglutide (weight loss) 0.25 0.25 mg SQ WEEKLY Weight loss 11/01/22 11/01/22 mg/0.5 mL subcutaneous pen injector (Sana) Previous Rx's ?Medication ?Instructions ?Recorded acyclovir 800 mg tablet 800 mg PO DIRECTED 7 days #35 11/01/22 tabs amoxicillin 875 mg-potassium 1 tab PO BID 7 days #14 tabs 03/16/24 clavulanate 125 mg tablet fluconazole 150 mg tablet 150 mg PO Q3D 2 doses #2 tabs 03/17/24 cefdinir 300 mg capsule 300 mg PO BID 10 days #20 caps 04/12/24 fluconazole 150 mg tablet 150 mg PO ONCE 1 dose #1 tab 04/12/24 phenazopyridine 200 mg tablet 200 mg PO Q8H pain 2 days #6 tabs 04/12/24 (Pyridium) Allergies Allergy/AdvReac Type Severity Reaction Status Date / Time No Known Allergies Allergy Verified 10/07/22 20:00 Worker's Comp Is this a Worker's Comp case?: No [facility] Disclaimer: The information contained in this section may have been updated after the patient was seen, as this information can be updated by other users. Social History (Updated 10/07/22 @ 21:01 by Florinda Benitez APRN) Smoking Status: Never smoker alcohol intake: never current occupational status: employed Travel in the last 8 weeks: None ROS Obtained: Yes All systems reviewed & no additional complaints except as documented and Yes Systems reviewed as appropriate & no additional complaints except as documented Constitutional Constitutional: Reports system reviewed and no additional complaints, except as documented, Reports as per HPI, Denies body ache, Denies chills and Denies fever(s) ENT Ears, Nose, Mouth, and Throat: Reports system reviewed and no additional complaints, except as documented and Reports as per HPI Cardiovascular Cardiovascular: Reports system reviewed and no additional complaints, except as documented and Reports as per HPI Respiratory Respiratory: Reports system reviewed and no additional complaints, except as documented and Reports as per HPI Gastrointestinal Gastrointestingal: Reports system reviewed and no additional complaints, except as documented and as per HPI; Denies abdominal pain, nausea or vomiting Genitourinary Female Genitourinary: Reports system reviewed and no additional complaints, except as documented, Reports as per HPI, Reports dysuria, Reports flank pain, Reports urinary frequency and Reports urinary urgency Physical Exam General General appearance: alert and in no apparent distress ENT ENT exam: Present mucous membranes moist Respiratory Respiratory exam: Present normal lung sounds bilaterally; Absent respiratory distress or wheezes Cardiovascular Cardiovascular exam: Present regular rate, normal rhythm and normal heart sounds Abdominal Exam Abdominal exam: Present soft and normal bowel sounds; Absent distention or tenderness Back Exam Back 1 view image: 2 1. reports achy like feeling, denies radiation of pain and denies loss of control of bowel or bladder Neurological Exam Neurological exam: Present alert, oriented X3 and normal gait Medical Decision Making Medical Records Screening: Per USPSTF and CDC recommendations, given the prevalence of disease in our region, it is our hospital?s policy to screen for HIV and viral Hepatitis for all patients aged 18 and over and those with ongoing risk factors. Sulaiman Inquiry Pt receiving controlled substance: No Sulaiman was queried for this patient: No Vital Signs: 04/12/24 09:43 Temperature 97.6 F Temperature Source Oral Pulse Rate [Left Brachial] 69 Respiratory Rate 20 Blood Pressure [Left Arm] 101/62 L Blood Pressure Mean [Left Arm] 75 02 Sat by Pulse Oximetry 100 Lab Data Lab results reviewed: Yes I reviewed the patient's lab results. Medical Decision Narrative: Patient has taken azo prior to arrival
[2024-04-12 10:02] LABS: Apearance,Urine Turbid (Clear); Color,Urine Orange (Yellow); PH,Urine 8.5 (5.0-8.5); Specific Gravity, Urine 1.015 (1.005-1.030)
[2024-04-12 10:03] LABS: Glucose,Urine (UA) 250 (Negative); Ketones,Urine SMALL (Negative); Protein,Urine 3+ (Negative)
[2024-04-12 10:04] LABS: Bilirubin,Urine 3+ (Negative); Blood, Urine 2+ (Negative); UTC Leukocyte Esterase,Urine 3+ (Negative); UTC Nitrate,Urine Positive (Negative); Urobilinogen,Urine >=8 EU/dl (0.2)
[2024-04-12 10:12] VITALS: BP 102/66; PULSE 77; RESP 20; TEMP 36.4
--- NOTE | 2024-04-16 14:59 | PC.NURSE ---
REVIEWED PATIENT'S URINE CULTURE RESULTS WITH Gildardo MELENDEZ APRN. NO CHANGE NEEDED AT THIS TIME
== END 2024-04-12 10:12 | disposition home or self-care (01) ==
PROVIDERS: Emergency Provider Nurse Practitioner; PCP Family Medicine
DX: N39.0 Urinary tract infection, site not specified (principal); B96.29 Other Escherichia coli [E. coli] as the cause of diseases classified elsewhere; M54.59 Other low back pain; R30.0 Dysuria; R35.0 Frequency of micturition
CPT/HCPCS: 81003; 87086; 87088; 87186; 99212; 99214; G0463

== ENCOUNTER 2024-04-13 15:05 | Outpatient (POV) | payer BC, SELFPAY | END 2024-04-13 23:59 | disposition home or self-care (01) | LOC: SC 15:05 | PROVIDERS: Visit Provider Dermatology | DX: Z00.00 Encounter for general adult medical examination without abnormal findings (principal) ==

== ENCOUNTER 2025-02-02 13:59 | Outpatient (CLI) | payer BC, SELFPAY ==
--- OUTSIDE RECORDS SUMMARY | 2024-12-25 06:00 | XMS_ITS ---
Author Organization [facility] Address [address] [place] [id number] Care Team Providers Care Plumbing Engineer Name Role Phone Feliberto Cesar Primary Care Provider [phone] Allergies No Known Allergies Results Component Value Reference Range Notes Urinalysis - Inhouse Reviewed date:12/26/2024 06:17:10 PM Interpretation: Performing Lab: Notes/Report: Color/Clarity yellow/cloudy Leuk Neg Nitrite Pos Urobili 3.2 Protein Neg pH 7.0 Blood Neg Sp. Gr. 1.015 Ketone Neg Bili Neg P-Culture, Urine Reviewed date:12/29/2024 12:02:34 PM Interpretation:sensitive Performing Lab: Notes/Report: Test performed by [facility], [employer] [address] [place] [address] , [address], [place] [address] Carlos Murcia MD, Examination Scorer CLIA: [id number] Specimen Source Urine - Not Specified Culture, Urine See Below See Microbiol ogy Report Escherichia coli 50,000-100,000 CFU/m l Escherichia coli Sensitivity Panel See Below ____ Organism E. coli Antibiotic INTERP ____ Amikacin S Ampicillin S Aztreonam S Cefepime S Cefoxitin S Ceftazidime S Ceftriaxone S Cefuroxime S Ciprofloxacin S Ertapenem S Gentamicin S Imipenem S Levofloxacin S Meropenem S Nitrofurantoin S Piperacillin/Tazo S Tetracycline R Tobramycin S Trimeth/Sulfa R ___ S=SUSCEPTIBLE I=INTERMEDIATE R=RESISTANT REASON FOR VISIT poss UTI Medications Medication SIG (Take, Route, Fr equency, Duration) Notes Start Date End Date Status Omeprazole 20 MG 1 cap(s) orally once a day; Duration: 90 days Active Myrbetriq 25 MG 1 tablet Orally Once a day; Duration: 30 days 12/25/2024 Active Macrobid 100 MG 1 capsule with food Orally every 12 hrs; Duration: 5 days 12/25/2024 A ctive Wegovy 2.4 MG/0.75ML INJECT 1 SYRINGE AVALOS BCUTANEOUSLY ONCE A WEEK; Duration: 28 Active Cymbalta 60 MG 1 cap(s) orally once a day; Duration: 90 days Active Estradiol 2 MG 1 tab(s) orally once a day; Duration: 30 day(s) Active Problems Problem Type SNOMED Code ICD Code Onset Dates Problem Status W/U Status Risk Notes Problem Urge incontinence of urine (93550195) Urge incontinence (N39.41) Active confirmed Vital Signs Weight 170.4 lbs 12/25/2024 Blood pressure systolic 100 mm Hg 12/26/19 25 Blood pressure diastolic 60 mm Hg 025 Heart Rate 75 /min 12/25/2024 Height 67 in 12/25/2024 BMI 26.69 kg/m2 12/25/2024 Encounters Encounter Location Date Provider Diagnosis [facility] [address] [facility] [address] [place] [id number] 12/25/2024 Feliberto Cesar UTI (lower urinary t ract infection) N39.0 ; Urge incontinence N39.41 and BMI 26.0-26.9,adult Z68.26 Assessments Encounter Date Diagnosis (ICD Code) Assessment Notes Treatment Notes Treatment Clinical Notes Section Notes 12/25/2024 UTI (lower urinary tract infection) (ICD-10 - N39.0) 12/25/2024 Urge incontinence (ICD-10 - N39.41) 12/25/2024 BMI 26.0-26.9,adult (ICD-10 - Z68.26) Plan Of Treatment Medication Medication Name Sig Start Date Stop Date Notes Myrbetriq 25 MG 1 tablet Orally Once a day; Duration: 30 days 12/25/2024 Macrobid 100 MG 1 capsule with food Orally every 12 hrs; Duration: 5 days 12/25/2024 Next Appt Details Follow Up: 2 or 3 Weeks, [place] son: Progress Notes * Ailyn GERBER MDOB:0 1975 (49 yo F)Acc No.[id number]:12/25/2024 Progress Notes Patient: Ailyn REYNOSO Cammy Asher Provider: Teetee Cesar M.D. :1975 A ge:49 Y S ex:Female Date:12/25/2024 Address:[address] [place] [address] [id number] Subjective: * Chief Complaints: * 1 . poss UTI. * HPI: U rology: 49 year old female presents with c/o burning sensation T he pt is here today with c/o burning with urination. Pt states this started about a week ago. Pt states she does have some lower abdominal pain and feeling of incomplete urine output. Pt states she woke up this morning with a fever blister in the corner of her mouth. Pt states she has a history of frequent UTI's. Denies : hematuria. D enies : fever. * ROS: C ARDIOLOGY: no D izziness. n o C hest pain. D ERMATOLOGY: no R tomas. n o H jian. G ASTROENTEROLOGY: no N ausea. n o V omiting. * Medical History: T ype 2 Diabetes, Hyperlipidemia, Uterine Fibroids, Vitamin D Deficiency. * Surgical History: C -Section 1993, 1997, D & C 1998, Gastric Sleeve 02/2019, Hysterectomy, total 07/17/2020. * Hospitalization/Major Diagno stic Procedure: D enies Past Hospitalization. * Family History: F ather: alive. M other: alive. 1 brother(s) - healthy. 1 son(s) , 1 daughter(s) - healthy. . * Social History: C URRENT TOBACCO USE S moking Status: Patient does NOT smoke. C affeine: yes, frequency:. Exercise: yes. Marital Status: . Past smoking status: no, Smoking status: Does not smoke. Alcohol: No, Type: , Frequency: ,Years: , Determination:. Sexually active: yes. * Medications: T aking Estradiol 2 MG Tablet 1 tab(s) orally once a day , Taking Cymbalta 60 MG Capsule Delayed Release Particles 1 cap(s) orally once a day , Taking Omeprazole 20 MG Capsule Delayed Release 1 cap(s) orally once a day , Taking Wegovy 2.4 MG/0.75ML Solution Auto-injector INJECT 1 SYRINGE SUBCUTANEOUSLY ONCE A WEEK , Discontinued Macrobid 100 MG Capsule 1 capsule with food Orally every 12 hrs , Medication List reviewed and reconciled with the patient * Allergies: N .K.D.A. Objective: * Vitals: W t: 170.4, Temp: 98.6, BP: 100/60, HR: 75, Nurse: DANIELA, Ht: 67, BMI:26.69. * Examination: G eneral Examination: General Appearance: N AD. H eart: R SR. L ungs:?clear to auscultation. B ack: n o CVA tenderness. Assessment: * Assessment: 1. U TI (lower urinary tract infection) - N39.0 (Primary) 2 . U rge incontinence - N39.41 3 . B WI 26.0-26.9,adult - Z68.26 Plan: * Treatment: Value Reference Range C ulture, Urine See Below - * S pecimen Source Urine - Not Specified - * S ensitivity Panel See Below - * E scherichia coli 50,000-100,000 CFU/ml Escherichia coli - * Lyndsey Zee 12/29/2024 09:4 8:12 AM EDT >pt started on MacrobidKing, Jenny 12/29/2024 10:05:27 AM EDT > LM for pt to return callGoble, Juliet 12/29/2024 12:01:40 PM EDT > pt informed ?LAB: Urinalysis - Inhouse (Collection Date & Time - 12/25/2024)* Value Reference Range C olor/Clarity yellow/cloudy * L euk Neg * N itrite Pos * U robili 3.2 * P rotein Neg * p H 7.0 * B lood Neg * S p. Gr. 1.015 * K etone Neg * B kingsley Neg * Juany Munoz 12/25/2024 10: 39:15 AM EDT > Provider reviewed results while patient in office.Feliberto Cesar 12/26/2024 06:17:06 PM EDT > 2.?Urge incontinence? Start Myrbetriq Tablet Extended Release 24 Hour, 25 MG, 1 tablet, Orally, Once a day, 30 days, 30, Refills 1.?? * Procedure Codes: 8 1002 Urinalysis, no micro, G8420 BMI<30 AND >=22 CALC & DOCU, G8783 BP SCR PRFRM RCMDD DEFIND SCR INTVL, G8752 MOST RECENT SYSTOLIC BP < 140MM HG, G8754 MOST RECENT DIASTOLIC BP < 90MM HG, 1036F TOBACCO NON-USER * Follow Up: 2 or 3 Weeks * Images: Billing Information: * Visit Code: 60162 Office Visit, Est Pt., Level 3. * Procedure Codes: 77749 Urinalysis, no micro. G8420 BMI<30 AND >=22 CALC & DOCU. G8783 BP SCR PRFRM RCMDD DEFIND SCR INTVL. G8752 MOST RECENT SYSTOLIC BP < 140MM HG. G8754 MOST RECENT DIASTOLIC BP < 90MM HG. 1036F TOBACCO NON-USER. * Electronic signature of Maude Cesar MD on 02/02/2025 at 02:02 PM EDT Sign off status: Pending * Provider: Teetee Cesar M.D. Date: 0 12/25/2024 Generated for [place] fermin/Lise/eTransmitting on: 0 02/02/2025 02:02 PM EDT History and Physical Notes * HPI (History of Present Illness) Category Sub-Category Detail Notes Category Not es Urology burning sensation The pt is here today with c/o burning with urination. Pt states this started about a week ago. Pt states she does have some lower abdominal pain and feeling of incomplete urine output. Pt states she woke up this morning with a fever blister in the corner of her mouth. Pt states she has a history of frequent UTI's hematuria fever Examination Category Sub-Category Detail Notes Category Not es General Examination Heart: RSR Lungs: clear to auscultatio n General Appearance: NAD Back: no CVA tenderness
--- OUTSIDE RECORDS SUMMARY | 2025-01-14 07:15 | XMS_ITS ---
Author Organization [facility] Address [address] [facility] [address] [facility] [address] [place] [phone] Care Team Providers Care Hardware Trainer Name Role Phone Feliberto Cesar Primary Care Provider [phone] Results Component Value Reference Range Notes Urinalysis - Inhouse Reviewed date:01/19/2025 04:52:43 PM Interpretation: Performing Lab: Notes/Report: Color/Clarity Dark Yellow/Cloudy Leuk Neg Nitrite Pos Urobili 3.2 Protein Neg pH 3.2 Blood Neg Sp. Gr. 1.020 Ketone Neg Bili Neg Gluc Neg REASON FOR VISIT urine sample Medications Medication SIG (Take, Route, Fr equency, Duration) Notes Start Date End Date Status Cymbalta 60 MG 1 cap(s) orally once a day; Duration: 90 days Active Macrobid 100 MG 1 capsule with food Orally every 12 hrs; Duration: 5 days 12/25/2024 A ctive Omeprazole 20 MG 1 cap(s) orally once a day; Duration: 90 days Active Wegovy 2.4 MG/0.75ML INJECT 1 SYRINGE AVALOS BCUTANEOUSLY ONCE A WEEK; Duration: 28 Active Myrbetriq 25 MG 1 tablet Orally Once a day; Duration: 30 days 12/25/2024 Active Estradiol 2 MG 1 tab(s) orally once a day; Duration: 30 day(s) Active Encounters Encounter Location Date Provider Diagnosis [place] [address] [facility] [address] [place] [phone] 01/14/2025 Feliberto Cesar Dysuria R30.0 Assessments Encounter Date Diagnosis (ICD Code) Assessment Notes Treatment Notes Treatment Clinical Notes Section Notes 01/14/2025 Dysuria (ICD-10 - R30.0) Plan Of Treatment No Information Progress Notes * Ailyn GERBER MDOB:0 1975 (49 yo F)Acc No.[id number]:01/14/2025 Patient: Ailyn REYNOSO Provider: Teetee Cesar M.D. :1975 A ge:49 Y S ex:Female Date:01/14/2025 Address:[address] [place] [address] [id number] Subjective: * Chief Complaints: * 1 . Urine sample. * Medical History: * Medications: T aking Estradiol 2 MG Tablet 1 tab(s) orally once a day , Taking Cymbalta 60 MG Capsule Delayed Release Particles 1 cap(s) orally once a day , Taking Omeprazole 20 MG Capsule Delayed Release 1 cap(s) orally once a day , Taking Macrobid 100 MG Capsule 1 capsule with food Orally every 12 hrs , Taking Myrbetriq 25 MG Tablet Extended Release 24 Hour 1 tablet Orally Once a day , Taking Wegovy 2.4 MG/0.75ML Solution Auto-injector INJECT 1 SYRINGE SUBCUTANEOUSLY ONCE A WEEK , Medication List reviewed and reconciled with the patient Objective: * Vitals: Assessment: * Assessment: 1. D ysuria - R30.0 (Primary) Plan: * Treatment: * Labs: * L ab: Urinalysis - Inhouse (Collection Date & Time - 01/14/2025) Value Reference Range C olor/Clarity Dark Yellow/Cloudy * L euk Neg * N itrite Pos * U robili 3.2 * P rotein Neg * p H 3.2 * B lood Neg * S p. Gr. 1.020 * K etone Neg * B kingsley Neg * G debbie Neg * Jenny Mathews 01/14/2025 12:03: 44 PM EDT > Pt's son informed that abx sent to pharm * Procedure Codes: 8 1002 Urinalysis, no micro * Images: Billing Information: * Visit Code: * Procedure Codes: 99140 Urinalysis, no micro. * Electronic signature of Maude n [place] , MD on 02/02/2025 at 02:01 PM EDT Sign off status: Pending * Provider: Teetee Cesar M.D. Date: 0 01/14/2025 Generated for [place] fermin/Lise/Nadira on: 0 02/02/2025 02:01 PM EDT
--- OUTSIDE RECORDS SUMMARY | 2025-01-31 08:21 | XMS_ITS ---
Author Organization [facility] Address [address] [facility] [address] [place] [id number] Care Team Providers Care Help Desk Internship Name Role Phone Feliberto Cesar Primary Care Provider REASON FOR VISIT UA results Encounters Encounter Location Date Provider Diagnosis [place] [address] [place] [phone] 01/31/2025 Feliberto Cesar Dysuria R30.0 and History of UTI Z87.440 Assessments Encounter Date Diagnosis (ICD Code) Assessment Notes Treatment Notes Treatment Clinical Notes Section Notes 01/31/2025 Dysuria (ICD-10 - R30.0) 01/31/2025 History of UTI (ICD-10 - Z87.440) Plan Of Treatment Pending Test Test Name Order Date H-UA 01/31/2025 H-Urine Culture and Sensitivity 02/01/20 25 Progress Notes * Ailyn GERBER MDOB:0 1975 (49 yo F)Acc No.[id number]:01/31/2025 Patient: Ailyn REYNOSO Cammy Asher :1975 A ge:49 Y S ex:Female Address:[place] [address] Subjective: * Chief Complaints: * U A results * Medical History: * Surgical History: * Hospitalization/Major Diagno stic Procedure: * Medications: Objective: * Vitals: * Physical Examination: Assessment: * Assessment: 1. D ysuria - R30.0 (Primary) 2 . H istory of UTI - Z87.440 ? Plan: * Treatment: 2. H istory of UTI L AB: H-UA L AB: H-Urine Culture and Sensitivity * Procedure Codes: * * Date:
--- OUTSIDE RECORDS SUMMARY | 2025-02-02 14:01 | XMS_ITS | Encounter Summary ---
Author Organization [employer] ([place], [place], [place], [place]) Address [address] [place] [address] Care Team Providers Care Health Outcomes Liaison Name Role Phone Unavailable Primary Care Provider Unavailabl e Encounter Details Date Type Department Care Team (Late st Contact Info) Description 02/01/2019 Transcribed Document [facility] [place] [facility] [place] [address] ProviderCarlos MD [address] [place] [address] Social History Tobacco Use Types Packs/Day Years Used Date Smoking Tobacco: Never Assessed Comments Unknown Sex and Gender Information Value Date Recorded Sex Assigned at Not on file Legal Sex Female 6:39 PM CDT Gender Identity Not on file Sexual Orientation Not on file documented as of this encounter Miscellaneous Notes * Cerner Conversion Note - Carlos ProviderMD - 02/01/2019 12:53 PM CDT Pre Procedure Adult Entered On: 02/01/2019 12:57 EDT Performed On: 02/01/2019 12:53 EDT by Katherine Hale RN Height and Weight, Clinical Dosing Height Source : Stated Height Entry Format : [place] Height, Feet : 5 ft(Converted to: 152 cm, 60 Inch) Height, Inches : 8 Inch(Converted to: 0 ft 8 Inch, 20.32 cm) Clinical Height : 172.72 cm Weight Source : Standing scale Weight Entry Format : [place] Clinical Dosing Weight : 113.64 kg Weight, Pounds : 250 lb Body Surface Area (BSA) : 2.25 m2 Body Mass Index : 38.1 kg/m2 (HI) Mineral Body Weight : 63 kg Katherine Hale RN - 02/01/2019 12:53 EDT Health Histories Smoking Status : Never (less than 100 in lifetime; none in last 30 days) Smokeless Tobacco Status : Never Katherine Hale RN - 02/01/2019 12:53 EDT Social History (As Of: 02/01/2019 12:57:24 EDT) Tobacco: Never (less than 100 in lifetime) Smoking Status. (Last Updated: 02/01/2019 12:57:06 EDT by Katherine Hale RN) Alcohol: Alcohol Use History No. (Last Updated: 02/01/2019 12:57:09 EDT by Katherine Hale RN) Substance Abuse: Drug Use Hx: No. Use in Last 12 Months: No. (Last Updated: 02/01/2019 12:57:12 EDT by Katherine Hale RN) Nutrition/Health: Caffeine intake amount: 1 per day. (Last Updated: 02/01/2019 12:57:21 EDT by Katherine Hale RN) Infectious Disease History Infectious Disease History : Chicken pox/Shingles, Influenza Fever/Chills Last 48 Hours : No Travel To Regions with Travel Advisories : No Travel Outside [place] Within Last 30 Days : No Contact With Traveler to Advisory Region : No Tuberculosis Symptoms : None Katherine Hale RN - 02/01/2019 12:53 EDT Anesthesia/Transfusion History Family History of Anesthesia Reaction : No prior transfusion(s) Transfusion History : Prior anesthesia without reaction Family History of Anesthesia Reaction : Unknown Katherine Hale RN - 02/01/2019 12:53 EDT Functional Assessment Living Situation : Home Patient Lives With : Spouse Current Home Treatments : None Katherine Hale RN - 02/01/2019 12:53 EDT Psychosocial History Currently in Unsafe Situation : No Tried to Harm Yourself in the Past? : No Thoughts of Harming/Killing Yourself : No Katherine Hale RN - 02/01/2019 12:53 EDT Advance Directive Patient has Advance Directive *Q : No, patient refuses Advance Directive information Katherine Hale RN - 02/01/2019 12:53 EDT Teaching/Learning Assessment Barriers To Learning : None evident Individuals Taught : Patient Highest Level of Education : Post graduate degree(s) Baseline Knowledge of Topic : Good Learning Style Preferences Patient : Verbal explanation Katherine Hale RN - 02/01/2019 12:53 EDT General Info Arrived From : Home Mode of Arrival on Unit : Ambulatory Legal Guardian : Spouse Support Person/Patient Phonograph Cartridge Assembler : Yes Want Family/Rep/Phys Notified of Admit : No Emergency Contact #1 : na Emergency Contact #1 Phone Number : na Emergency Contact #1 Relationship : na Emergency Contact #2 : na Emergency Contact #2 Phone Number : na Emergency Contact #2 Relationship : na Information Obtained From : Patient Primary Language : Latvian Communication Barrier : None Objects to Sharing Info w Family : No Katherine Hale RN - 02/01/2019 12:53 EDT Sleep Apnea Risk Assmt Hx of Obstructive Sleep Apnea Diagnosis : No Snore Loudly : No Tired, Fatigued, or Sleepy During Day : No Observed Stopping Breathing During Sleep : No Have/Are Being Treated for Hypertension : No BMI Greater Than 35 kg/m2 : Yes Age over 50 Years Old : No Neck Circumference Greater Than 40 cm : No Gender Male : No STOP-BANG Sleep Apnea Risk Level Score : 1 Katherine Hale RN - 02/01/2019 12:53 EDT Mark Scale Mark Sensory Perception : No impairment Mark Moisture : Rarely moist Mark Activity : Walks frequently Mark Mobility : No limitation Mark Nutrition : Adequate Mark Friction and Shear : No apparent problem Mark Score : 22 Katherine Hale RN - 02/01/2019 12:53 EDT Pain Assessment Pain Assessment : Initial assessment Pain Scale Goal : 2 Pain Scale Used : 0-10 Scale Katherine Hale RN - 02/01/2019 12:53 EDT Fall Risk Scales ABCs Fall Injury Risk Identification : None PARK Hx Falls Immediate/Within 3 Months : No Park Secondary Diagnosis : No PARK Use of Ambulatory Aid : None PARK IV Therapy or IV Access : Yes Park Gait/Transferring : Normal, bedrest, immobile Park Mental Status : Oriented to own ability PARK Fall Scale Risk Level : 0-24 Low Risk [place] Fall Interventions : Adequate lighting, Assistive devices within reach, Bed in low position, Call device within reach, Fall prevention handout/education per facility policy, Frequent orientation to call device, Frequent orientation to surroundings, Hourly comfort/safety rounds, Non-slip footwear Katherine Hale RN - 02/01/2019 12:53 EDT Valuables and Belongings Valuables and Belongings : Clothing Clothing : Common streetwear Clothing Disposition : Bedside, With family, With patient, Declines to send to security/safe Katherine Hale RN - 02/01/2019 12:53 EDT Pain Scale Intensity : 0 Katherine Hale RN - 02/01/2019 12:53 EDT Image 4 - Images currently included in the form version of this document have not been included in the text rendition version of the form. documented in this encounter Plan of Treatment Not on file documented as of this encounter Visit Diagnoses Not on filedocumented in this encounter
--- OUTSIDE RECORDS SUMMARY | 2025-02-02 14:01 | XMS_ITS | Encounter Summary ---
Author Organization [employer] ([place], [place], [place], [place]) Address [address] [facility] [place] [address] Care Team Providers Care Assistant Store Manager Trainee Name Role Phone Unavailable Primary Care Provider Unavailabl e Encounter Details Date Type Department Care Team (Late st Contact Info) Description 03/20/2019 Transcribed Document [facility] [place] Family Medicine [address] [place] [address] ProviderCarlos MD [address] [place] [address] Social History Tobacco Use Types Packs/Day Years Used Date Smoking Tobacco: Never Assessed Comments Unknown Sex and Gender Information Value Date Recorded Sex Assigned at Not on file Legal Sex Female 6:39 PM CDT Gender Identity Not on file Sexual Orientation Not on file documented as of this encounter Miscellaneous Notes * Cerner Conversion Note - Historical ProviderMD - 03/20/2019 3:16 PM CDT Nursing Discharge Summary Entered On: 03/20/2019 16:51 EDT Performed On: 03/20/2019 15:16 EDT by Jenny Carter RN Discharge Documentation Patient Disposition, General : Discharge Discharge To : Home with ambulatory/outpatient follow-up Accompanied By, Discharge : Spouse IV Discontinued : Yes Personal Belongings With Patient : Yes Prescriptions Given to Patient : Yes Discharge Instructions Reviewed With, Opportunity For Questions Given : Patient Patient Education Completed : Yes Number of Prescriptions Given : 3 Teaching Method : Explanation Teaching Evaluation : Verbalizes understanding Jenny Carter RN - 03/20/2019 16:51 EDT documented in this encounter Plan of Treatment Not on file documented as of this encounter Visit Diagnoses Not on filedocumented in this encounter
--- OUTSIDE RECORDS SUMMARY | 2025-02-02 14:01 | XMS_ITS | Encounter Summary ---
Author Organization [employer] ([place], [place], [place], [place]) Address [address] [place] [address] Care Team Providers Care Interventional Radiology Technologist Name Role Phone Unavailable Primary Care Provider Unavailabl e Encounter Details Date Type Department Care Team (Late st Contact Info) Description 02/01/2019 Transcribed Document [facility] [place] Family Medicine [facility] [place] [address] ProviderCarlos MD [facility] [place] [address] Social History Tobacco Use Types Packs/Day Years Used Date Smoking Tobacco: Never Assessed Comments Unknown Sex and Gender Information Value Date Recorded Sex Assigned at Not on file Legal Sex Female 6:39 PM CDT Gender Identity Not on file Sexual Orientation Not on file documented as of this encounter Miscellaneous Notes * Cerner Conversion Note - Carlos ProviderMD - 02/01/2019 2:13 PM CDT [facility] Summary Primary Physician: MARILIN CHÁVEZ MD Finalized Date/Time: 02/01/19 14:16:14 Pt. Name: ETHAN GERBER VICTORIANO Chaparro/Sex: 1975 Female Med Rec #: [id number] Physician: MARILIN CHÁVEZ MD Financial #: [id number] Pt. Type: O Room/Bed: [facility] Admit/Disch: 02/01/19 12:15:00 - Institution: [facility] - Case Attendance Entry 1 Entry 2 Entry 3 Case Attendee MARILIN CHÁVEZ MD DOSS, MELISSA T RN MARI MCADAMS Role Performed Surgeon/Proceduralist, Member Of Congress, First Scrub, First First Time In 02/01/19 14:10:00 02/01/19 14:10:00 02/01/19 14:10:00 Time Out 02/01/19 14:17:00 02/01/19 14:17:00 02/01/19 14:17:00 Procedure Gastric Biopsy Esophagogastroduodenosco Esophagogastroduodenosco py, Gastric Biopsy py, Gastric Biopsy Other Attendee Superficial Wound Closed By: Last Modified By: PALLAVI MAYES RN DOSS, MELISSA T, RN DOSS, MELISSA T, RN 02/01/19 14:15:56 02/01/19 14:15:56 02/01/19 14:15:56 Entry 4 Case Attendee CARLOS DONOVAN MD Role Performed Anesthesiologist Time In 02/01/19 14:10:00 Time Out 02/01/19 14:17:00 Procedure Esophagogastroduodenosco py, Gastric Biopsy Other Attendee Superficial Wound Closed By: Last Modified By: PALLAVI MAYES RN 02/01/19 14:15:56 [facility] - Case Attendance Audit 02/01/19 14:15:56 Internet Merchant: DOSSMT Modifier: DOSSMT 1 <+> Time Out 1 <*> Procedure Gastric Biopsy 2 <+> Time Out 2 <*> Procedure Esophagogastroduodenoscopy, Gastric Biopsy 3 <+> Time Out 3 <*> Procedure Esophagogastroduodenoscopy, Gastric Biopsy 4 <+> Time Out 4 <*> Procedure Esophagogastroduodenoscopy, Gastric Biopsy 02/01/19 14:14:03 Internet Merchant: DOSSMT Modifier: DOSSMT <+> 1 Procedure 2 <+> Time In 2 <*> Procedure Esophagogastroduodenoscopy 3 <+> Time In 3 <*> Procedure Esophagogastroduodenoscopy 4 <+> Time In 4 <*> Procedure Esophagogastroduodenoscopy [facility] - Case Times Entry 1 Patient In Room Time 02/01/19 14:10:00 Out Room Time 02/01/19 14:17:00 Anesthesia Start Time 02/01/19 14:10:00 Stop Time 02/01/19 14:17:00 Surgery / Procedure Times Start Time 02/01/19 14:13:00 Stop Time 02/01/19 14:15:00 Last Modified By: PALLAVI MAYES RN 02/01/19 14:15:46 [facility] - Case Times Audit 02/01/19 14:15:46 Internet Merchant: DOSSMT Modifier: DOSSMT <+> 1 Out Room Time <+> 1 Stop Time <+> 1 Start Time <+> 1 Stop Time [facility] - Cultures and Spec Summary Entry 1 Cultrures and Specimens Specimen Ordered: Yes Test(s) Routine/Path-Lab Requested/Final Disposition Last Modified By: PALLAVI MAEYS RN 02/01/19 14:14:24 General Comments: clotest [facility] - Delays Entry 1 Delay Reason Other Duration 0 Minute(s) Comment NO DELAY Last Modified By: PALLAVI MAYES RN 02/01/19 14:10:33 [facility] - Departure from OR Entry 1 Integumentary Assessment Integumentary WDL Assessment WDL Transfer/Handoff Transfer to PACU Phase I Post-op Transport Stretcher/Gurney Via Patient Transport PALLAVI MAYES RN, Accompanied by CARLOS DONOVAN MD Last Modified By: PALLAVI MAYES RN 02/01/19 14:10:39 [facility] - Endoscopy Details Entry 1 Abdomen Procedure Soft, Non-Tender Assessment Procedure Abdomen 02/01/19 14:10:00 Assessment D/T Radio Frequency Ablation Last Modified By: PALLAVI MAYES RN 02/01/19 14:10:44 [facility] - Fire Risk Assessment Entry 1 Fire Info Surgical Site or 1- Yes Incision Above the Xyphoid Open O2 Source 1- Yes (Mask or Cannula) Available Ignition 1- Yes (ESU, Laser, Light Source) Fire Risk 3 Assessment Score Fire Score Fire Risk Yes Assessment Complete Fire Risk PALLAVI MAYES RN Assessment Verified By Fire Risk 02/01/19 14:10:00 Assessment Verified Date/Time Fire Risk High Risk Protocol Yes Implemented Standard Fire Yes Safety Precautions Followed Last Modified By: PALLAVI MAYES RN 02/01/19 14:10:49 [facility] - General Case Manager Product 1 Case Information OR Endo 01 [facility] Case Level 1 Room Verified Yes Wound Class II - Clean-Contaminated Specialty SN General Anesthesia Type MAC ASA Class 3 Diagnosis Preop Diagnosis bariatric screening Postop Same As Preop No Postop Diagnosis normal Last Modified By: PALLAVI MAYES RN 02/01/19 14:15:54 [facility] - General Case Data Audit 02/01/19 14:15:54 Internet Merchant: DOSSMT Modifier: DOSSMT <+> 1 Postop Diagnosis [facility] - Intraoperative Assessment Entry 1 Valid History / Yes Physical in Chart Preoperative Yes Checklist Reviewed/Evaluated Allergies Reviewed Yes Patient is Latex No Sensitive Level of WDL Consciousness (WDL = Alert, Oriented to Person, Place, and Time) Present Upon IVs Arrival to OR Last Modified By: PALLAVI MAYES RN 02/01/19 14:12:22 [facility] - Intraoperative Equipment Entry 1 Equipment Intraop Monitoring Electrocardiogram Three lead placement (ECG) Electrode Placement Blood Pressure Arm, left upper Location Pulse Oximeter Hand, right Probe Site Antiembolic Devices Scopes Flexible Endoscopes Gastroscope Used Photo/Video Documentation Photo Yes Video No Last Modified By: PALLAVI MAYES RN 02/01/19 14:13:05 [facility] - Patient Positioning Entry 1 Procedure Esophagogastroduodenosco py Body Position Lateral, right side up Left Arm Position Resting at side Right Arm Position Resting at side Left Leg Position Other Right Leg Position Other Position Comments Right leg over left leg uncrossed Feet Uncrossed Yes Pressure Points Yes Checked Positioned By MARI MCADAMS, CARLOS DONOVAN MD Position Verified Positioning Yes Verified by Surgeon Last Modified By: PALLAVI MAYES RN 02/01/19 14:15:36 [facility] - Sign In Entry 1 Patient, Site, Yes Procedure Identified Surgical Consent Yes Confirmed Relevant Surgical Yes Documents Available Surgical Site N/A Marked by person performing procedure Anesthesia Machine Yes Check Completed Medication Checks Yes Completed Allergies No Airway Difficult No Airway/Aspiration Risk Difficult Yes Airway/Aspiration Intervention Equipment Available Blood Loss Risk No Blood Loss Yes Intervention Equipment Prepared and Ready Blood Identifiers Not applicable Verified Per Policy Hypothermia Risk No Warming Measures No Taken Last Modified By: PALLAVI MAYES RN 02/01/19 14:13:50 [facility] - Sign Out Entry 1 RN Confirmation Surgical Yes Procedure(s) Identified Instrument, Sponge N/A and Sharps Counts Correct/Documented Equipment Problems N/A Documented Specimen Labeled Yes Correctly Urinary Catheter N/A Documented in IView Safety Checklist Yes Elements Complete? RN Sign Out PALLAVI MAYES RN Signature RN Sign Out 02/01/19 14:16:00 Signature Date/Time Plan of Care Outcome - Fire Risk OUTCOME STATEMENT: Goal met Patient is free from injury related to surgical fire Plan of Care Outcome - Pt Positioning OUTCOME STATEMENT: Goal met Absence of signs and symptoms of positioning injury. Plan of Care Outcome - Skin Prep OUTCOME STATEMENT: Goal met Intraoperative care is consistent with measures to prevent infection Plan of Care Outcome - Xray/Images OUTCOME STATEMENT: N/A Absence of observable signs or symptoms of radiation injury Plan of Care Outcome - Counts OUTCOME STATEMENT: N/A Absence of signs and symptoms of injury related to extraneous objects Last Modified By: PALLAVI MAYES RN 02/01/19 14:16:09 [facility] - Surgical Procedures Entry 1 Entry 2 Procedure Esophagogastroduodenosco Gastric Biopsy py Modifiers Additional W/BX W/BX Procedure Description Primary Procedure Yes No Primary Surgeon MARILIN CHÁVEZ MD STEINER, JOSHUA, MD Start 02/01/19 14:13:00 02/01/19 14:13:00 Stop 02/01/19 14:15:00 02/01/19 14:15:00 Physician States Cecum Reached Anesthesia Type MAC MAC Specialty SN General SN General Wound Class II - Clean-Contaminated II - Clean-Contaminated Last Modified By: PALLAVI MAYES RN DOSS, MELISSA T, RN 02/01/19 14:16:00 02/01/19 14:16:00 [facility] - Surgical Procedures Audit 02/01/19 14:16:00 Internet Merchant: DOSSMT Modifier: DOSSMT <+> 1 Start <+> 1 Stop <+> 2 Start <+> 2 Stop [facility] - Time Out Entry 1 Procedure to be Esophagogastroduodenosco Performed py, Gastric Biopsy Time Out Time Out Pause Time 02/01/19 14:13:00 All activity Yes suspended (unless life threatening emergency) Team Verbally Correct patient Confirms Information identity, Consent form is present and accurate, Agreement on the procedure to be done, Correct patient position, Relevant images/results properly labeled/appropriately displayed Antibiotic N/A Prophylaxis Administered Or In Progress Within the Last 60 Minutes Beta Amarjit N/A Administered Venous N/A Thromboembolism Prophylaxis Required Anticipated Critical Events Surgeon None expected Anesthesia Provider None expected Last Modified By: PALLAVI MAYES RN 02/01/19 14:14:04 [facility] - Time Out Audit 02/01/19 14:14:04 Internet Merchant: DOSSMT Modifier: DOSSMT 1 <*> Procedure to be Performed Esophagogastroduodenoscopy Case Comments <None> Finalized By: PALLAVI MAYES RN Document Signatures Signed By: PALLAVI MAYES RN 02/01/19 14:16 Electronically signed by Zaina [facility] Conversion Chemical Radiation Technician Cerner at 11/08/2022 4:31 PM CDT documented in this encounter Plan of Treatment Not on file documented as of this encounter Visit Diagnoses Not on filedocumented in this encounter
--- OUTSIDE RECORDS SUMMARY | 2025-02-02 14:01 | XMS_ITS | Encounter Summary ---
Author Organization [employer] ([place], [place], [place], [place]) Address [address] [place] [address] Care Team Providers Care Rooming House Operator Name Role Phone Unavailable Primary Care Provider Unavailabl e Encounter Details Date Type Department Care Team (Late st Contact Info) Description 03/20/2019 Transcribed Document [facility] [place] Family Medicine [address] [place] [address] ProviderCarlos MD [address] [place] [address] Social History Tobacco Use Types Packs/Day Years Used Date Smoking Tobacco: Never Assessed Comments Unknown Sex and Gender Information Value Date Recorded Sex Assigned at Not on file Legal Sex Female 6:39 PM CDT Gender Identity Not on file Sexual Orientation Not on file documented as of this encounter Miscellaneous Notes * Cerner Conversion Note - Historical ProviderMD - 03/20/2019 2:00 AM CDT [address] Driver Details Entered On: 03/20/2019 6:29 EDT Performed On: 03/20/2019 2:00 EDT by Jeevan Winchester, RN Order Details Order Detail : 0 IV Order Detail : 1 Oxygen Order Detail : 0 Nurse Collect Order Detail : 0 Lift/Transfer : Minimal Central Line Order Detail : No Room Service : Not Appropriate Arterial Line : No Jeevan Winchester, RN - 03/20/2019 6:28 EDT Electronically signed by Forrest Mahajan Conversion Entrepreneurship Program Director Cerner at 11/08/2022 4:15 PM CDT documented in this encounter Plan of Treatment Not on file documented as of this encounter Visit Diagnoses Not on filedocumented in this encounter
--- OUTSIDE RECORDS SUMMARY | 2025-02-02 14:01 | XMS_ITS ---
Author Organization Unknown Medications Medication Instructions Effective Dates (start - stop) Status estradiol 2 MG Oral Tablet 01-18T00:00:00.000+00:00 - Completed estradiol 2 MG Oral Tablet 10-21T00:00:00.000+00:00 - Completed estradiol 2 MG Oral Tablet :00:00.000+00:00 - Completed estradiol 2 MG Oral Tablet 04-09T:00:00.000+00:00 - Completed 0.75 ML semaglutide 2.27 MG/ ML Auto-Injector [optionsXpress] 5196-87-60G91:00:00.000+00:0 0 - Completed 0.75 ML semaglutide 2.27 MG/ ML Auto-Injector [optionsXpress] 7579-85-98F42:00:00.000+00:0 0 - Completed 0.5 ML semaglutide 1 MG/ML Auto-Injector [optionsXpress] 6906-34-52S13:00:00.000+00:0 0 - Completed omeprazole 20 MG Delayed Rel ease Oral Capsule 1594-63-73L49:00:00.000+00:0 0 - Completed omeprazole 20 MG Delayed Rel ease Oral Capsule 1271-30-87A89:00:00.000+00:0 0 - Completed omeprazole 20 MG Delayed Rel ease Oral Capsule 5652-55-39W33:00:00.000+00:0 0 - Completed omeprazole 20 MG Delayed Rel ease Oral Capsule 3419-62-95M58:00:00.000+00:0 0 - Completed omeprazole 20 MG Delayed Rel ease Oral Capsule 3804-62-98Z93:00:00.000+00:0 0 - Completed [id number] 200 ACTUAT albuter ol 0.09 MG/ACTUAT Metered Dose Inhaler 2571-79-49A20:00:00.000+00:0 0 - Completed cefuroxime 500 MG Oral Tablet 09-02-0700:00:00.000+00:00 - Completed nitrofurantoin, macrocrystal s 25 MG / nitrofurantoin, monohydrate 75 MG Oral Capsule 3254-14-71W51:00:00.000+00:0 0 - Completed prednisone 20 MG Oral Tablet 09-20-20:00:00.000+00:00 - Completed fluconazole 150 MG Oral Tablet 2 345-55-57Y44:00:00.000+00:00 - Completed - 8497-39-50B05:00 :00.000+00:00 - Completed {6 (azithromycin 250 MG Oral Tablet) } Pack 8553-22-32S23:00:00.000+00:0 0 - Completed benzonatate 100 MG Oral Capsule 8509-51-91J79:00:00.000+00:00 - Completed acyclovir 800 MG Oral Tablet 09-21-13:00:00.000+00:00 - Completed duloxetine 60 MG Delayed Rel ease Oral Capsule 0514-39-44L89:00:00.000+00:0 0 - Completed duloxetine 60 MG Delayed Rel ease Oral Capsule 1192-39-26L84:00:00.000+00:0 0 - Completed duloxetine 60 MG Delayed Rel ease Oral Capsule 0218-61-61I29:00:00.000+00:0 0 - Completed Patient Care team information Name Category Status Period Participants - - Proposed period not known -
--- OUTSIDE RECORDS SUMMARY | 2025-02-02 14:01 | XMS_ITS | Encounter Summary ---
Author Organization [employer] ([place], [place], [place], [place]) Address [address] [place] [address] Care Team Providers Care Telephone Operator Receptionist Name Role Phone Unavailable Primary Care Provider Unavailabl e Encounter Details Date Type Department Care Team (Late st Contact Info) Description 03/20/2019 Transcribed Document [facility] [place] Family Medicine [address] [place] [address] ProviderCarlos MD [address] [place] [address] Social History Tobacco Use Types Packs/Day Years Used Date Smoking Tobacco: Never Assessed Comments Unknown Sex and Gender Information Value Date Recorded Sex Assigned at Not on file Legal Sex Female 6:39 PM CDT Gender Identity Not on file Sexual Orientation Not on file documented as of this encounter Miscellaneous Notes * Cerner Conversion Note - Carlos Early MD - 03/20/2019 2:16 PM CDT Patient Education Materials Follows: Dr. Pravin Mo, Dr. Paul West, Dr. Carlton Anguiano, JAMARCUS - Office - Physician Exchange Discharge Instructions Use your patient handbook! DIET ?? Staying hydrated is your main goal! Be sure to drink at least 64 ounces of fluid/water every day. ?? Remember the importance of hot liquids at least twice a day to reduce mucus build up and nausea. ?? Begin using your protein supplements as soon as you get home. Work up to at least 60-80 grams of protein from your supplements. That's about 3-4 supplements a day. ?? You may start your soft, high protein diet only when you are drinking 64 oz of fluid and getting close to your 60 grams of protein from your supplements. ?? Stick with only the foods in phase three of your handbook. These foods are soft, moist and high in protein. Aim for about 3 Tbsp or 1.5 oz per meal. Remember no drinking with food or the hour after. ?? Use the fluid and protein log in your patient handbook to track your intake. ACTIVITY ?? No lifting over 20 pounds within two weeks after surgery, or until the doctor recommends it. ?? No water exercise for two weeks. ?? Do not sit or stand for long periods of time. When you do sit, change positions frequently. ?? Do not drive until 1 week after surgery and until you are off all pain medication. ?? You may resume sexual relations when comfortable. ?? Continue to use the spirometer (breathing exercise) that you brought home at least 4 times a day for the first week. ?? Return to work when you feel capable. ?? Begin to walk 30 minutes each day. At first you may need to take two or three 10 to 15 minute walks. Gradually increase the distance you walk as you tolerate. MEDICINES ?? Take your medicines as we discussed at discharge. There may be some changes from what you were on before surgery. Fill prescriptions given at hospital and begin taking the omeprazole (or equivalent) daily. ?? Post-op vitamins will begin after your post-op appointment. ?? Take a dose of Milk of Magnesia each day that you are taking pain medication or until you have normal bowel movement. DIABETES ?? If you are diabetic, check your glucose. Call the office if it is greater than 200 more than 3 times in 24-48 hours. WOUND CARE ?? You will be sent home with bandages over your incisions. You should remove all the bandages and shower over your wounds using antibacterial soap, such as Dial, the day after you return home. Do not re-cover your raegan. Pat dry after shower with a clean towel. If you have some wound drainage, it is still fine to shower. You may use a dressing or sanitary napkin to recover your drain site if needed. ?? Please notify [facility] of any drainage, type and amount, change in well-being: fever, increasing pain, inability to tolerate fluids or liquids. REMEMBER As you begin to use your body fat as fuel, you will become ketotic and therefore a bit nauseated. It is important that you continue your protein, even when you are not hungry or feel nauseated. WHEN TO CALL US ? If you have abdominal pain worse than you ever had in the hospital. ?? If you have a temperature that is 101 degrees or more. ?? If you have unusual swelling in one or both legs. ?? If you vomit and it looks different from what you just ate / drank. ?? If you have increased redness or drainage from incision sites. ?? If you have any other symptoms that concern you. Use your Patient Handbook! Many topics including nausea, vomiting, diarrhea, constipation, sleeplessness, headaches, and more are covered within this book. If you do not find an answer in your book, please call the Center at [phone]. documented in this encounter Plan of Treatment Not on file documented as of this encounter Visit Diagnoses Not on filedocumented in this encounter
--- OUTSIDE RECORDS SUMMARY | 2025-02-02 14:01 | XMS_ITS | Encounter Summary ---
Author Organization [employer] ([place], [place], [place], [place]) Address [address] [address] Care Team Providers Care Pilot Submersible Name Role Phone Unavailable Primary Care Provider Unavailabl e Encounter Details Date Type Department Care Team (Late st Contact Info) Description 02/01/2019 Transcribed Document [facility] [place] Family Medicine [address] [place] [address] ProviderCarlos MD [address] [place] [address] Social History Tobacco Use Types Packs/Day Years Used Date Smoking Tobacco: Never Assessed Comments Unknown Sex and Gender Information Value Date Recorded Sex Assigned at Not on file Legal Sex Female 6:39 PM CDT Gender Identity Not on file Sexual Orientation Not on file documented as of this encounter Miscellaneous Notes * Cerner Conversion Note - Carlos Early MD - 02/01/2019 2:33 PM CDT Patient Education Materials Follows: Esophagogastroduodenoscopy, Care After Refer to this sheet in the next few weeks. These instructions provide you with information about caring for yourself after your procedure. Your health care provider may also give you more specific instructions. Your treatment has been planned according to current medical practices, but problems sometimes occur. Call your health care provider if you have any problems or questions after your procedure. What can I expect after the procedure? After the procedure, it is common to have: ??? A sore throat. ??? Nausea. ??? Bloating. ??? Dizziness. ??? Fatigue. Follow these instructions at home: ??? Do not eat or drink anything until the numbing medicine (local anesthetic) has worn off and your gag reflex has returned. You will know that the local anesthetic has worn off when you can swallow comfortably. ??? Do not drive for 24 hours if you received a medicine to help you relax (sedative). ??? If your health care provider took a tissue sample for testing during the procedure, make sure to get your test results. This is your responsibility. Ask your health care provider or the department performing the test when your results will be ready. ??? Keep all follow-up visits as told by your health care provider. This is important. Contact a health care provider if: ??? You cannot stop coughing. ??? You are not urinating. ??? You are urinating less than usual. Get help right away if: ??? You have trouble swallowing. ??? You cannot eat or drink. ??? You have throat or chest pain that gets worse. ??? You are dizzy or light-headed. ??? You faint. ??? You have nausea or vomiting. ??? You have chills. ??? You have a fever. ??? You have severe abdominal pain. ??? You have black, tarry, or bloody stools. This information is not intended to replace advice given to you by your health care provider. Make sure you discuss any questions you have with your health care provider. Document Released: 06/23/2013 Document Revised: 12/12/2016 Document Reviewed: 05/30/2016 [employer] Interactive Patient Education ? 2019 [employer] documented in this encounter Plan of Treatment Not on file documented as of this encounter Visit Diagnoses Not on filedocumented in this encounter
--- OUTSIDE RECORDS SUMMARY | 2025-02-02 14:01 | XMS_ITS | Encounter Summary ---
Author Organization [employer] ([place], [place], [place], [place]) Address [address] [place] [address] Care Team Providers Care Gandy Dancer Name Role Phone Unavailable Primary Care Provider Unavailabl e Encounter Details Date Type Department Care Team (Late st Contact Info) Description 03/20/2019 Transcribed Document [facility] [place] Family Medicine [address] [place] [address] ProviderCarlos MD [address] [place] [address] Social History Tobacco Use Types Packs/Day Years Used Date Smoking Tobacco: Never Assessed Comments Unknown Sex and Gender Information Value Date Recorded Sex Assigned at Not on file Legal Sex Female 6:39 PM CDT Gender Identity Not on file Sexual Orientation Not on file documented as of this encounter Miscellaneous Notes * Cerner Conversion Note - Historical ProviderMD - 03/20/2019 5:00 AM CDT Chart Check - Review Order Profile Entered On: 03/20/2019 6:29 EDT Performed On: 03/20/2019 5:00 EDT by Jeevan Winchester RN Chart Check Power[employer]ans Initiated/Discontinued as Appropriate : Yes All Active Orders Reviewed : Yes Jeevan Winchester RN - 03/20/2019 6:29 EDT Electronically signed by Forrest Mahajan Conversion Casting Machine Control Board Operator Cerner at 11/08/2022 4:25 PM CDT documented in this encounter Plan of Treatment Not on file documented as of this encounter Visit Diagnoses Not on filedocumented in this encounter
--- OUTSIDE RECORDS SUMMARY | 2025-02-02 14:01 | XMS_ITS | Encounter Summary ---
Author Organization [employer] ([place], [place], [place], [place]) [address] [place] [address] Care Team Providers Care Assistance Specialist Name Role Phone Unavailable Primary Care Provider Unavailabl e Encounter Details Date Type Department Care Team (Late st Contact Info) Description 02/01/2019 Transcribed Document [facility] [place] [address] [place] [address] ProviderCarlos MD [facility] [place] [address] Social History Tobacco Use Types [...] - 02/01/2019 2:13 PM CDT [facility] PACU Summary Primary Physician: MARILIN CHÁVEZ MD Finalized Date/Time: 02/01/19 14:53:21 Pt. Name: PARI, ETHAN Chaparro/Sex: 1975 Female Med Rec #: [id number] Physician: MARILIN CHÁVEZ MD Financial #: [id number] Pt. Type: O Room/Bed: [facility]/ Admit/Disch: 02/01/19 12:15:00 - Institution: [facility] PACU Case Times Entry 1 In PACU I 02/01/19 14:20:00 Ready for PACU 02/01/19 14:48:00 Discharge Discharge from PACU 02/01/19 14:53:00 I [facility] PACU Case Times Audit 02/01/19 14:53:18 Engineering And Operations Director: ELOISE Modifier: ELOISE <+> 1 Ready for PACU Discharge <+> 1 Discharge from PACU I Finalized By: KIM VANCE RN Document Signatures Signed By: KIM VANCE RN 02/01/19 14:53 Electronically signed by Zaina [facility] Conversion Shift Mgr Cerner at 11/08/2022 4:26 PM CDT documented in this encounter Plan of Treatment Not on file documented as of this encounter Visit Diagnoses Not on filedocumented in this encounter
--- OUTSIDE RECORDS SUMMARY | 2025-02-02 14:01 | XMS_ITS | Encounter Summary ---
Author Organization [employer] ([place], [place], [place], [place]) Address [address] [place] [address] Care Team Providers Care Oyster Unloader Name Role Phone Unavailable Primary Care Provider Unavailabl e Encounter Details Date Type Department Care Team (Late st Contact Info) Description 02/01/2019 Transcribed Document [facility] [place] [address] [place] [address] ProviderCarlos MD [facility] [place] [address] Social History Tobacco Use Types Packs/Day Years Used Date Smoking Tobacco: Never Assessed Comments Unknown Sex and Gender Information Value Date Recorded Sex Assigned at Not on file Legal Sex Female 6:39 PM CDT Gender Identity Not on file Sexual Orientation Not on file documented as of this encounter Miscellaneous Notes * Cerner Conversion Note - Carlos ProviderMD - 02/01/2019 2:45 PM CDT [facility] PreOp Summary Primary Physician: MARILIN CHÁVEZ MD Finalized Date/Time: 02/01/19 13:14:28 Pt. Name: PARI ETHAN Chaparro/Sex: 1975 Female Med Rec #: [id number] Physician: MARILIN CHÁVEZ MD Financial #: [id number] Pt. Type: O Room/Bed: [facility] Admit/Disch: 02/01/19 12:15:00 - Institution: [facility] PreOp Case Times Entry 1 In Preop 02/01/19 12:53:00 Ready for Holding n/a Room Patient Ready for 02/01/19 13:14:00 Surgery Patient Out of Preop 02/01/19 13:14:00 Patient Out of n/a Holding Room [facility] PreOp Case Times Audit 02/01/19 13:14:27 Interior Plant Caretaker: JOAQUIN Modifier: BICKNEA <+> 1 Patient Out of Preop <+> 1 Patient Ready for Surgery Finalized By: Katherine Hale RN Document Signatures Signed By: Katherine Hale RN 02/01/19 13:14 Electronically signed by Zaina [facility] Conversion [employer] Teacher Cerner at 11/08/2022 4:26 PM CDT documented in this encounter Plan of Treatment Not on file documented as of this encounter Visit Diagnoses Not on filedocumented in this encounter
--- OUTSIDE RECORDS SUMMARY | 2025-02-02 14:01 | XMS_ITS | Encounter Summary ---
Author Organization [employer] ([place], [place], [place]) Address [address] [place] [address] Care Team Providers Care Dry Mixer Name Role Phone Unavailable Primary Care Provider Unavailabl e Encounter Details Date Type Department Care Team (Late st Contact Info) Description 03/20/2019 Transcribed Document [facility] [place] Family Medicine [address] [place] [address] ProviderCarlos MD [address] [place] [address] Social History Tobacco Use Types Packs/Day Years Used Date Smoking Tobacco: Never Assessed Comments Unknown Sex and Gender Information Value Date Recorded Sex Assigned at Not on file Legal Sex Female 6:39 PM CDT Gender Identity Not on file Sexual Orientation Not on file documented as of this encounter Miscellaneous Notes * Cerner Conversion Note - Historical ProviderMD - 03/20/2019 2:16 PM CDT Stroke/Warfarin Instructions Entered On: 03/20/2019 14:16 EDT Performed On: 03/20/2019 14:16 EDT by Jenny Carter RN Stroke/Warfarin Instructions Stroke/TIA Discharge Ins : N/A Warfarin Discharge Ins : N/A Jenny Carter RN - 03/20/2019 14:16 EDT documented in this encounter Plan of Treatment Not on file documented as of this encounter Visit Diagnoses Not on filedocumented in this encounter
--- OUTSIDE RECORDS SUMMARY | 2025-02-02 14:01 | XMS_ITS | Encounter Summary ---
Author Organization [employer] ([place], [place], [place], [place]) Address [address] [place] [address] Care Team Providers Care Extrusion Press Supervisor Name Role Phone Unavailable Primary Care Provider Unavailabl e Encounter Details Date Type Department Care Team (Late st Contact Info) Description 02/01/2019 Transcribed Document [facility] [place] Medicine [facility] [place] [address] ProviderCarlos MD [address] [place] [address] Social History Tobacco Use Types Packs/Day Years Used Date Smoking Tobacco: Never Assessed Comments Unknown Sex and Gender Information Value Date Recorded Sex Assigned at Not on file Legal Sex Female 6:39 PM CDT Gender Identity Not on file Sexual Orientation Not on file documented as of this encounter Miscellaneous Notes * Cerner Conversion Note - Carlos ProviderMD - 02/01/2019 2:48 PM CDT [place] [id number] ETHAN GERBERRINGTON :1975 Visit Time:02/01/2019 What to do next Instructions From Your Care Team Diet after Discharge: Resume usual diet as tolerated, Do not drink any alcoholic beverages, _ Fluid Restriction after Discharge: _ Activity after Discharge: _, Rest and relax today, No strenuous activity Lifting Restrictions: _ Weight Bearing: _ Bedrest: _ Driving after Discharge: Do not drive for 24 hours May Return to Work/School: Tomorrow Showering/Bathing: May shower, _ Notify Provider of: Any Questions or Concerns. Wound/Incision Care after Discharge: _, _ Medical Equipment for Home Use: Home Health Services: Community Services: Follow-Up Appointments Follow Up with MARILIN CHÁVEZ When Within As needed, only if needed Comments Call for any questions or Concerns. Where: [facility] - PHONE [address] [place] [address]- Medications What How Much When Instructions Next Dose dulaglutide (Trulicity Pen 0.75 mg/ 0.5 mL subcutaneous solution) SubCutaneous Weekly DULoxetine (Cymbalta 60 mg oral delayed release capsule) 1 Capsule(s) Oral Every Day (do not crush or chew) metFORMIN (metFORMIN 1000 mg oral tablet) 1 Tablet(s) Oral Every Day rosuvastatin (rosuvastatin 20 mg oral tablet) 1 Tablet(s) Oral Every Day Take your medications faithfully. Do NOT skip medication. Do NOT stop taking medications without the direction of a physician. Carry a list of your medications with you at all times, and take this medication list with you to your first follow up visit. Report any side effects. Avoid herbal remedies unless discussed with your physician. As part of your treatment plan, your physician may have prescribed a limited course of a controlled substance. This medication may be given to help people with moderate or severe pain or for other medical conditions, but there are risks involved with treatment. Common side effects may include nausea, constipation, drowsiness, sweating, itching, dry mouth, and rash. More serious side effects may include cognitive and motor impairment, like problems with thinking, concentrating, alertness, and movement (e.g. slowed reflexes), and driving and operating heavy machinery can be dangerous. It is important for you to talk to your physician if you have these side effects or questions. These controlled substances can produce physical dependence and be habit-forming if taken for an extended period of time, which means that the body has gotten used to them and may experience withdrawal symptoms if they are abruptly stopped. Withdrawal symptoms can include runny nose, sweating, goose bumps, diarrhea, abdominal cramping, rapid heartbeat, difficulty sleeping, and nervousness. Please dispose of unused and medications per pharmacy guidance. Education Materials Esophagogastroduodenoscopy, Care After Refer to this sheet [...] 06/23/2013 Document Revised: 12/12/2016 Document Reviewed: 05/30/2016 [employer] Patient Education ?? 2019 [employer] Emergency Awareness and Preventative Care STROKE is an EMERGENCY Every Minute Counts Act FAST and Check for these signs: FACE Does the face look uneven? ARM Does one arm drift down? SPEECH Does their speech sound strange? TIME Call at any sign of stroke Stroke Risk Factors Atrial Fibrillation (irregular heartbeat) Diabetes Family history of stroke Heart Disease Heavy alcohol use High Blood Pressure High Cholesterol Physical inactivity and obesity Smoking Cigarette Smoking The facts are clear, cigarette smoking will shorten your life. Smoking can cause many illnesses along the way. As a healthcare provider, we recommend that you stop smoking. Assistance with quitting is available by contacting 9-539-KNNANOW. This is a free resource providing counseling, support, and referral. Or you may contact your personal physician. National Suicide Prevention Lifeline: The National Suicide Prevention Lifeline is a national network of local crisis centers that provides free and confidential emotional support to people in suicidal crisis or emotional distress 24 hours a day, 7 days a week. Don't Wait! Stop a Heart Attack Before it Starts What is a heart attack? A heart attack is damage or to a part of the heart from severely decreased or lack of blood flow to the heart. Over time, arteries can become narrow from the buildup of fat and cholesterol, which is called plaque. The plaque can rupture causing a blood clot to form. When the blood clot forms, the artery can become severely narrowed or completely blocked, causing a heart attack. Heart attack is the leading cause of in the [place]. 85% of muscle damage occurs within the first 2 hours. Delay in the recognition of heart attack symptoms increases the chances of . Know the early symptoms of a heart attack: Nausea Feeling of fullness in chest Jaw Pain Pain that travels down one or both arms Fatigue/being tired Anxiety Back Pain Chest pressure, squeezing, or discomfort Shortness of breath Sweating, or a cold sweat Feeling of impending doom There are unusual signs of a heart attack, too! Women, the elderly, and diabetics may present with atypical symptoms: Fainting/dizziness Weakness Confusion Risk Factors for a Heart Attack Some heart disease risk factors, such as age and family history, cannot be changed. Others, like smoking and lack of exercise, can be changed. Smoking High Cholesterol High Blood Pressure Family History Obesity Age Gender (Males are at higher risk) Lack of Exercise Diabetes Diet Stress Excessive Alcohol Intake If you or someone you know is experiencing the signs and symptoms of a heart attack, DON???T DELAY. Call immediately and seek help. If someone collapses, perform CPR! Do not attempt to drive if you are having symptoms of heart attack. Hands-Only CPR Why Hands-Only CPR? Hands-Only CPR has been shown to be as effective as conventional CPR for cardiac arrests that occur outside of a hospital. Survival depends on immediately receiving CPR from someone nearby. How do you perform Hands-Only CPR? There are two easy steps: Call 9-1-1 if you see a teen or adult collapse Push hard and fast in the center of the chest at a beat of 100 beats per minute. Save a life! 4 WAYS TO GET AHEAD OF SEPSIS SEPSIS is a MEDICAL EMERGENCY. Time matters! Infections put you and your family at risk for a life-threatening condition called sepsis. Sepsis is the body's extreme response to an infection. It is life-threatening, and without timely treatment, sepsis can rapidly lead to tissue damage, organ failure, and . Sepsis happens when an infection you already have-in your skin, lungs, urinary tract or somewhere else-triggers a chain reaction throughout your body. 1 PREVENT INFECTIONS Take good care of chronic conditions. Talk to your doctor about getting the recommended vaccines. 2 PRACTICE GOOD HYGIENE Wash your hands frequently. Keep cuts or open sores clean and covered until they are healed. 3 KNOW THE SYMPTOMS Confusion or disorientation Shortness of breath High heart rate Fever, shivering, or feeling very cold Extreme pain or discomfort Clammy or sweaty skin 4 ACT FAST Get medical care IMMEDIATELY if you suspect sepsis or if you have an infection that is not getting better or is getting worse. To learn more about sepsis and how to prevent infections, visit www.cdc.gov/sepsis. Test Results Laboratory or Other Results This Visit (last charted value for your 02/01/2019 visit) Hematology 02/01/19 11:21:00 WBC: 7.4 K/uL -- Normal range between ( 3.9 and 10.0 ) RBC: 4.23 Million/uL -- Normal range between ( 3.93 and 5.22 ) Hct: 37.1 % -- Normal range between ( 34.1 and 44.9 ) Hgb: 12.8 Gram/dL -- Normal range between ( 11.2 and 15.7 ) Platelet Count: 193 K/uL -- Normal range between ( 163 and 369 ) MCH: 30.3 pg -- Normal range between ( 25.6 and 32.2 ) MCHC: 34.5 Gram/dL -- Normal range between ( 32.3 and 36.5 ) MCV: 87.7 fL -- Normal range between ( 79.0 and 94.8 ) Slide Review: No Eos %: 0.9 % -- Normal range between ( 1.0 and 7.0 ) Parmer #: 0.43 K/uL -- Normal range between ( 0.24 and 0.82 ) Eos #: 0.07 K/uL -- Normal range between ( 0.04 and 0.54 ) Parmer %: 5.8 % -- Normal range between ( 4.7 and 12.5 ) Baso %: 0.4 % -- Normal range between ( 0.0 and 1.0 ) Baso #: 0.03 K/uL -- Normal range between ( 0.01 and 0.08 ) RDW: 12.5 % -- Normal range between ( 11.6 and 14.4 ) Neut %: 66.3 % -- Normal range between ( 34.0 and 71.0 ) Neut #: 4.89 K/uL -- Normal range between ( 1.56 and 6.13 ) Lymph %: 26.2 % -- Normal range between ( 19.3 and 53.0 ) Lymph #: 1.93 K/uL -- Normal range between ( 1.18 and 3.74 ) MPV: 10.2 fL -- Normal range between ( 9.4 and 12.4 ) IG#: 0 x10(3)/uL IG%: 0 % -- Normal range between ( 0 and 1 ) General Chemistry 02/01/19 14:31:00 Glucose POC2: 96 mg/dL -- Normal range between ( 70 and 110 ) 02/01/19 11:22:00 Creatinine Level: 0.82 mg/dL -- Normal range between ( 0.55 and 1.02 ) Sodium Level: 140 mmol/L -- Normal range between ( 136 and 146 ) Potassium Level: 4.3 mmol/L -- Normal range between ( 3.5 and 5.1 ) Chloride Level: 109 mmol/L -- Normal range between ( 102 and 112 ) Carbon Dioxide Level: 25 mmol/L -- Normal range between ( 21 and 32 ) Anion Gap: 10 -- Normal range between ( 9 and 20 ) Bilirubin Total: 0.4 mg/dL -- Normal range between ( 0.2 and 1.3 ) Hgb A1C: 6.50 % -- Normal range between ( 4.20 and 6.30 ) A/G Ratio: 1.3 -- Normal range between ( 1.1 and 2.5 ) ALT: 29 Units/Liter -- Normal range between ( 12 and 78 ) AST: 9 Units/Liter -- Normal range between ( 5 and 37 ) Globulin: 2.9 Gram/dL -- Normal range between ( 1.5 and 4.5 ) Alk Phos: 69 Units/Liter -- Normal range between ( 27 and 136 ) eAVG Glucose: 140 mg/dL Bun/Creatinine: 18.3 -- Normal range between ( 8.0 and 20.0 ) Calcium Level: 8.7 mg/dL -- Normal range between ( 8.5 and 10.1 ) eGFR : >60 mL/min/1.73m2 eGFR NonAfrican: >60 mL/min/1.73m2 Glucose Level: 103 mg/dL -- Normal range between ( 74 and 106 ) Blood Urea Nitrogen: 15 mg/dL -- Normal range between ( 7 and 22 ) Protein Total: 6.7 Gram/dL -- Normal range between ( 6.4 and 8.2 ) Albumin Level: 3.8 Gram/dL -- Normal range between ( 3.4 and 5.0 ) Coagulation 02/01/19 11:22:00 INR: 1.0 -- Normal range between ( 0.9 and 1.1 ) PTT: 28.2 Second(s) -- Normal range between ( 24.5 and 30.1 ) PT: 10.4 Second(s) -- Normal range between ( 9.6 and 11.5 ) Lipid Studies 02/01/19 11:22:00 Cholesterol Tot: 180 mg/dL -- Normal range between ( 0 and 199 ) Cholesterol HDL: 34.0 mg/dL Cholesterol LDL Calculation: 115.8 mg/dL -- Normal range between ( 0.0 and 99.0 ) Cholesterol VLDL Calculation: 30.2 mg/dL -- Normal range between ( 5.0 and 40.0 ) Cholesterol/HDL Ratio: 5.3 -- Normal range between ( 0.0 and 3.2 ) Triglyceride: 151 mg/dL -- Normal range between ( 0 and 249 ) LDL/HDL Ratio: 3.4 -- Normal range between ( 0.0 and 3.2 ) Endocrinology 02/01/19 11:23:00 TSH: 0.563 mcInt Units/mL -- Normal range between ( 0.358 and 3.740 ) T4 Total: 10.6 mcg/mL -- Normal range between ( 4.8 and 13.9 ) Patient Name:ETHAN GERBER I have received this information and was given the opportunity to ask questions. Patient/Model Photographers' Name: Patient/Model Photographers' Signature: Relationship to Patient: Clinician/Hospital Model Photographers' Signature: Date: documented in this encounter Plan of Treatment Not on file documented as of this encounter Visit Diagnoses Not on filedocumented in this encounter
--- OUTSIDE RECORDS SUMMARY | 2025-02-02 14:01 | XMS_ITS | Encounter Summary ---
Author Organization [employer] ([place], [place], [place], [place]) Address [address] [place] [address] Care Team Providers Care Pharmacovigilance Scientist Name Role Phone Unavailable Primary Care Provider Unavailabl e Encounter Details Date Type Department Care Team (Late st Contact Info) Description 03/20/2019 Transcribed Document [facility] [address] [place] [address] ProviderCarlos MD [address] [place] [address] Social History Tobacco Use Types Packs/Day Years Used Date Smoking Tobacco: Never Assessed Comments Unknown Sex and Gender Information Value Date Recorded Sex Assigned at Not on file Legal Sex Female 6:39 PM CDT Gender Identity Not on file Sexual Orientation Not on file documented as of this encounter Miscellaneous Notes * Cerner Conversion Note - Carlos Early MD - 03/20/2019 2:17 PM CDT [place] [id number] ETHAN GERBERRINGTON :1975 Visit Time:03/19/2019 Your Visit Summary Your Care Team Admitting Physician - CLARY LAMBERT MD Attending Physician - CLARY LAMBERT MD Primary Care Physician - HARRIS FELICIANO (REF), -[facility] Referring Physician - CLARY LAMBERT MD Your Diagnosis Morbid obesity, Morbid (severe) obesity due to excess calories, Morbid (severe) obesity due to excess calories These Are Your Goals to not be in this much pain - Met Discharge Vitals Temperature 36.9 ??C Heart Rate (Monitored) 58 Respiratory Rate 16 Blood Pressure 111/70 What to do next Instructions From Your Care Team Discharge Follow Up Instructions: call office on friday for followup appointment Follow Up Instructions: followup one week from [id number] Activity: Discharge Activity: No heavy lifting over 10 lbs Diet: Warm liquids in the morning. May progress to full liquids and soft high protein foods as tolerated (Cottage cheese, chicken salad, eggs, etc). Make sure foods are wet . Drink 64 oz of fluids per day. Refer to James-handbook., Discharge Diet: Other (see Special Instructions) Follow-Up Appointments Follow Up with CLARY LAMBERT MD When 03/26/2019 09:00 AM EDT Comments Appointment has been made Where: [address] [place] [address]- X8 Medications What How Much When Instructions Next Dose DULoxetine (Cymbalta 60 mg oral delayed release capsule) 1 Capsule(s) Oral Every Day (do not crush or chew) Take your medications faithfully. Do NOT skip [...] Please dispose of unused and medications per your retail pharmacy guidance. Education Materials Dr. Pravin Mo, Dr. Paul West, ROE Longo-[facility] ??? Office ??? Physician Exchange Discharge Instructions Use your patient handbook! DIET ??? Staying hydrated is your main goal! Be sure to drink at least 64 ounces of fluid/water every day. ??? Remember the importance of hot liquids at least twice a day to reduce mucus build up and nausea. ??? Begin using your protein supplements as soon as you get home. Work up to at least 60-80 grams of protein from your supplements. That???s about 3-4 supplements a day. ??? You may start your soft, high protein diet only when you are drinking 64 oz of fluid and getting close to your 60 grams of protein from your supplements. ??? Stick with only the foods in phase three of your handbook. These foods are soft, moist and high in protein. Aim for about 3 Tbsp or 1.5 oz per meal. Remember no drinking with food or the hour after. ??? Use the fluid and protein log in your patient handbook to track your intake. ACTIVITY ??? No lifting over 20 pounds within two weeks after surgery, or until the doctor recommends it. ??? No water exercise for two weeks. ??? Do not sit or stand for long periods of time. When you do sit, change positions frequently. ??? Do not drive until 1 week after surgery and until you are off all pain medication. ??? You may resume sexual relations when comfortable. ??? Continue to use the spirometer (breathing exercise) that you brought home at least 4 times a day for the first week. ??? Return to work when you feel capable. ??? Begin to walk 30 minutes each day. At first you may need to take two or three 10 to 15 minute walks. Gradually increase the distance you walk as you tolerate. MEDICINES ??? Take your medicines as we discussed at discharge. There may be some changes from what you were on before surgery. Fill prescriptions given at hospital and begin taking the omeprazole (or equivalent) daily. ??? Post???op vitamins will begin after your post-op appointment. ??? Take a dose of Milk of Magnesia each day that you are taking pain medication or until you have normal bowel movement. DIABETES ??? If you are diabetic, check your glucose. Call the office if it is greater than 200 more than 3 times in 24-48 hours. WOUND CARE ??? You will be sent home with bandages [...] to recover your drain site if needed. ??? Please notify [facility] of any drainage, type [...] than you ever had in the hospital. ??? If you have a temperature that is 101 degrees or more. ??? If you have unusual swelling in one or both legs. ??? If you vomit and it looks different from what you just ate / drank. ??? If you have increased redness or drainage from incision sites. ??? If you have any other symptoms that concern you. Use your Patient Handbook! Many topics including nausea, vomiting, diarrhea, constipation, sleeplessness, headaches, and more are covered within this book. If you do not find an answer in your book, please call the Center at [phone]. acetaminophen and hydrocodone (a SEET a MIN oh fen and anne-marie droe KOE done) Hycet, Lorcet, [place], Verdrocet, Vicodin, Xodol, Zamicet What is the most important information I should know about acetaminophen and hydrocodone? MISUSE OF OPIOID MEDICINE CAN CAUSE ADDICTION, OVERDOSE, OR . Keep the medication in a place where others cannot get to it. An overdose of acetaminophen can damage your liver or cause . Call your doctor at once if you have pain in your upper stomach, loss of appetite, dark urine, or jaundice (yellowing of your skin or eyes). Taking opioid medicine during may cause life-threatening withdrawal symptoms in the . Fatal side effects can occur if you use opioid medicine with alcohol, or with other drugs that cause drowsiness or slow your breathing. Stop taking this medicine and call your doctor right away if you have skin redness or a rash that spreads and causes blistering and peeling. What is acetaminophen and hydrocodone? Hydrocodone is an opioid pain medication, sometimes called a narcotic. Acetaminophen is a less potent pain reliever that increases the effects of hydrocodone. Acetaminophen and hydrocodone is a combination medicine used to relieve moderate to severe pain. Acetaminophen and hydrocodone may also be used for purposes not listed in this medication guide. What should I discuss with my healthcare provider before taking acetaminophen and hydrocodone? You should not use this medicine if you are allergic to acetaminophen or hydrocodone, or if you have: ?? severe asthma or breathing problems; or ?? a blockage in your stomach or intestines. Tell your doctor if you have ever had: ?? liver disease; ?? a drug or alcohol addiction; ?? kidney disease; ?? a head injury or seizures; ?? urination problems; or ?? problems with your thyroid, pancreas, or gallbladder. If you use opioid medicine while you are , your baby could become dependent on the drug. This can cause life-threatening withdrawal symptoms in the baby after it is born. Babies born dependent on opioids may need medical treatment for several weeks. Do not breast-feed. This medicine can pass into breast milk and cause drowsiness, breathing problems, or in a nursing baby. How should I take acetaminophen and hydrocodone? Follow all directions on your prescription label. Never take this medicine in larger amounts, or for longer than prescribed. An overdose can damage your liver or cause . Tell your doctor if the medicine seems to stop working as well in relieving your pain. Always check your bottle to make sure you have received the correct pills (same brand and type) of medicine prescribed by your doctor. Never share this medicine with another person, especially someone with a history of drug abuse or addiction. MISUSE CAN CAUSE ADDICTION, OVERDOSE, OR . Keep the medicine in a place where others cannot get to it. Selling or giving away acetaminophen and hydrocodone is against the law. Measure liquid medicine carefully. Use the dosing syringe provided, or use a medicine dose-measuring device (not a kitchen spoon). If you need surgery or medical tests, tell the doctor ahead of time that you are using this medicine. You should not stop using this medicine suddenly. Follow your doctor's instructions about tapering your dose. Store at room temperature away from moisture and heat. Keep track of your medicine. You should be aware if anyone is using it improperly or without a prescription. Do not keep leftover opioid medication. Just one dose can cause in someone using this medicine accidentally or improperly. Ask your pharmacist where to locate a drug take-back disposal program. If there is no take-back program, flush the unused medicine down the toilet. What happens if I miss a dose? Since this medicine is used for pain, you are not likely to miss a dose. Skip any missed dose if it is almost time for your next dose. Do not use two doses at one time. What happens if I overdose? Seek emergency medical attention or call the Poison Help line at . An overdose of acetaminophen and hydrocodone can be fatal. The first signs of an acetaminophen overdose include loss of appetite, nausea, vomiting, stomach pain, sweating, and confusion or weakness. Later symptoms may include pain in your upper stomach, dark urine, and yellowing of your skin or the whites of your eyes. Overdose can also cause severe muscle weakness, pinpoint pupils, very slow breathing, extreme drowsiness, or coma. What should I avoid while taking acetaminophen and hydrocodone? Avoid driving or operating machinery until you know how this medicine will affect you. Dizziness or drowsiness can cause falls, accidents, or severe injuries. Do not drink alcohol. Dangerous side effects or could occur. Ask a doctor or pharmacist before using any other medicine that may contain acetaminophen (sometimes abbreviated as APAP). Taking certain medications together can lead to a fatal overdose. What are the possible side effects of acetaminophen and hydrocodone? Get emergency medical help if you have signs of an allergic reaction: hives; difficulty breathing; swelling of your face, lips, tongue, or throat. Opioid medicine can slow or stop your breathing, and may occur. A person caring for you should seek emergency medical attention if you have slow breathing with long pauses, blue colored lips, or if you are hard to wake up. In rare cases, acetaminophen may cause a severe skin reaction that can be fatal. This could occur even if you have taken acetaminophen in the past and had no reaction. Stop taking this medicine and call your doctor right away if you have skin redness or a rash that spreads and causes blistering and peeling. Call your doctor at once if you have: ?? noisy breathing, sighing, shallow breathing; ?? a light-headed feeling, like you might pass out; ?? liver problems--nausea, upper stomach pain, tiredness, loss of appetite, dark urine, mine-colored stools, jaundice (yellowing of the skin or eyes); or ?? low cortisol levels-- nausea, vomiting, loss of appetite, dizziness, worsening tiredness or weakness. Seek medical attention right away if you have symptoms of serotonin syndrome, such as: agitation, hallucinations, fever, sweating, shivering, fast heart rate, muscle stiffness, twitching, loss of coordination, nausea, vomiting, or diarrhea. Serious side effects may be more likely in older adults and those who are overweight, malnourished, or debilitated. Long-term use of opioid medication may affect fertility (ability to have children) in men or women. It is not known whether opioid effects on fertility are permanent. Common side effects include: ?? dizziness, drowsiness, feeling tired; ?? nausea, vomiting, stomach pain; ?? constipation; or ?? headache. This is not a complete list of side effects and others may occur. Call your doctor for medical advice about side effects. You may report side effects to FDA at 2-797-JVV-2734. What other drugs will affect acetaminophen and hydrocodone? You may have breathing problems or withdrawal symptoms if you start or stop taking certain other medicines. Tell your doctor if you also use an antibiotic, antifungal medication, heart or blood pressure medication, seizure medication, or medicine to treat HIV or hepatitis C. Opioid medication can interact with many other drugs and cause dangerous side effects or . Be sure your doctor knows if you also use: ?? cold or allergy medicines, bronchodilator asthma/COPD medication, or a diuretic ('water pill'); ?? medicines for motion sickness, irritable bowel syndrome, or overactive bladder; ?? other narcotic medications--opioid pain medicine or prescription cough medicine; ?? a sedative like Valium--diazepam, alprazolam, lorazepam, Xanax, Klonopin, Versed, and others; ?? drugs that make you sleepy or slow your breathing--a sleeping pill, muscle relaxer, medicine to treat mood disorders or mental illness; ?? drugs that affect serotonin levels in your body--a stimulant, or medicine for depression, Parkinson's disease, migraine headaches, serious infections, or nausea and vomiting. This list is not complete. Other drugs may affect acetaminophen and hydrocodone, including prescription and wczn-ibe-qbqjvol medicines, vitamins, and herbal products. Not all possible interactions are listed here. Where can I get more information? Your doctor or pharmacist can provide more information about acetaminophen and hydrocodone. Remember, keep this and all other medicines out of the reach of children, never share your medicines with others, and use this medication only for the indication prescribed. Every effort has been made to ensure that the information provided by [employer] is accurate, up-to-date, and complete, but no guarantee is made to that effect. Drug information contained herein may be time sensitive. [employer] information has been compiled for use by healthcare practitioners and consumers in the [place] and therefore [employer] does not warrant that uses outside of the [place] are appropriate, unless specifically indicated otherwise. [employer] drug information does not endorse drugs, diagnose patients or recommend therapy. [employer] drug information is an informational resource designed to assist licensed healthcare practitioners in caring for their patients and/or to serve consumers viewing this service as a supplement to, and not a substitute for, the expertise, skill, knowledge and judgment of healthcare practitioners. The absence of a warning for a given drug or drug combination in no way should be construed to indicate that the drug or drug combination is safe, effective or appropriate for any given patient. [employer] does not assume any responsibility for any aspect of healthcare administered with the aid of information [employer] provides. The information contained herein is not intended to cover all possible uses, directions, precautions, warnings, drug interactions, allergic reactions, or adverse effects. If you have questions about the drugs you are taking, check with your doctor, nurse or pharmacist. Copyright 7951-5966 [employer]. Version: 15.02. Revision Date: 05/25/2018. omeprazole (oh MEP ra zol) FIRST Omeprazole, Omeprazole + SyrSpend SF Susie, PriLOSEC, PriLOSEC OTC What is the most important information I should know about omeprazole? Omeprazole can cause kidney problems. Tell your doctor if you are urinating less than usual, or if you have blood in your urine. Diarrhea may be a sign of a new infection. Call your doctor if you have diarrhea that is watery or has blood in it. Omeprazole may cause new or worsening symptoms of lupus. Tell your doctor if you have joint pain and a skin rash on your cheeks or arms that worsens in sunlight. You may be more likely to have a broken bone while taking this medicine fci or more than once per day. What is omeprazole? Omeprazole is a proton pump inhibitor that decreases the amount of acid produced in the stomach. Omeprazole is used to treat symptoms of gastroesophageal reflux disease (GERD) and other conditions caused by excess stomach acid. Omeprazole is also used to promote healing of erosive esophagitis (damage to your esophagus caused by stomach acid). Omeprazole may also be given together with antibiotics to treat gastric ulcer caused by infection with Helicobacter pylori (H. pylori). Wgoi-njs-cwybrgy (OTC) omeprazole is used in adults to help control heartburn that occurs 2 or more days per week. This medicine not for immediate relief of heartburn symptoms. OTC omeprazole must be taken on a regular basis for 14 days in a row. Omeprazole may also be used for purposes not listed in this medication guide. What should I discuss with my healthcare provider before taking omeprazole? Heartburn can mimic early symptoms of a heart attack. Get emergency medical help if you have chest pain that spreads to your jaw or shoulder and you feel sweaty or light-headed. You should not use omeprazole if you are allergic to it, or if: ?? you are also allergic to medicines like omeprazole, such as esomeprazole, lansoprazole, pantoprazole, rabeprazole, Nexium, Prevacid, Protonix, and others; or ?? you also take HIV medication that contains rilpivirine (such as Complera, Jesus, Nereyda, Julcasey). Ask a doctor or pharmacist if this medicine is safe to use if you have: ?? trouble or pain with swallowing; ?? bloody or black stools, vomit that looks like blood or coffee grounds; ?? heartburn that has lasted for over 3 months; ?? frequent chest pain, heartburn with wheezing; ?? unexplained weight loss; ?? nausea or vomiting, stomach pain; ?? liver disease; ?? low levels of magnesium in your blood; or ?? osteoporosis or low bone mineral density (osteopenia). You may be more likely to have a broken bone in your hip, wrist, or spine while taking a proton pump inhibitor long-term or more than once per day. Talk with your doctor about ways to keep your bones healthy. Ask a doctor before using this medicine if you are or breast-feeding. Do not give this medicine to a child without medical advice. How should I take omeprazole? Follow all directions on your prescription label and read all medication guides or instruction sheets. Use the medicine exactly as directed. Use Prilosec OTC (ybpi-nzw-ogmcodk) exactly as directed on the label, or as prescribed by your doctor. Read and carefully follow any Instructions for Use provided with your medicine. Ask your doctor or pharmacist if you do not understand these instructions. Shake the oral suspension (liquid) before you measure a dose. Use the dosing syringe provided, or use a medicine dose-measuring device (not a kitchen spoon). If you cannot swallow a capsule whole, open it and sprinkle the medicine into a spoonful of applesauce. Swallow the mixture right away without chewing. Do not save it for later use. You must dissolve omeprazole powder in a small amount of water. This mixture can either be swallowed or given through a nasogastric (NG) feeding tube using a catheter-tipped syringe. Use this medicine for the full prescribed length of time, even if your symptoms quickly improve. OTC omeprazole should be taken for only 14 days in a row. It may take 1 to 4 days before your symptoms improve. Allow at least 4 months to pass before you start a new 14-day course of treatment. Call your doctor if your symptoms do not improve, or if they get worse. Some conditions are treated with a combination of omeprazole and antibiotics. Use all medications as directed. This medicine can affect the results of certain medical tests. Tell any doctor who treats you that you are using omeprazole. Store at room temperature away from moisture and heat. What happens if I miss a dose? Take the medicine as soon as you can, but skip the missed dose if it is almost time for your next dose. Do not take two doses at one time. What happens if I overdose? Seek emergency medical attention or call the Poison Help line at . What should I avoid while taking omeprazole? This medicine can cause diarrhea, which may be a sign of a new infection. If you have diarrhea that is watery or bloody, call your doctor before using anti-diarrhea medicine. What are the possible side effects of omeprazole? Get emergency medical help if you have signs of an allergic reaction: hives; difficulty breathing; swelling of your face, lips, tongue, or throat. Stop using omeprazole and call your doctor at once if you have: ?? severe stomach pain, diarrhea that is watery or bloody; ?? new or unusual pain in your wrist, thigh, hip, or back; ?? seizure (convulsions); ?? kidney problems--little or no urination, blood in your urine, swelling, rapid weight gain; ?? low magnesium--dizziness, irregular heartbeats, feeling jittery, muscle cramps, muscle spasms, cough or choking feeling; or ?? new or worsening symptoms of lupus--joint pain, and a skin rash on your cheeks or arms that worsens in sunlight. Taking omeprazole long-term may cause you to develop stomach growths called fundic gland polyps. Talk with your doctor about this risk. If you use omeprazole for longer than 3 years, you could develop a vitamin B-12 deficiency. Talk to your doctor about how to manage this condition if you develop it. Common side effects may include: ?? stomach pain, gas; ?? nausea, vomiting, diarrhea; or ?? headache. This is not a complete list of side effects and others may occur. Call your doctor for medical advice about side effects. You may report side effects to FDA at 7-488-GYN-7816. What other drugs will affect omeprazole? Sometimes it is not safe to use certain medications at the same time. Some drugs can affect your blood levels of other drugs you take, which may increase side effects or make the medications less effective. Tell your doctor about all your current medicines. Many drugs can affect omeprazole, especially: ?? clopidogrel; ?? methotrexate; ?? Hay's wort; or ?? an antibiotic--amoxicillin, clarithromycin, rifampin. This list is not complete and many other drugs may affect omeprazole. This includes prescription and svnn-ods-fvvgtzv medicines, vitamins, and herbal products. Not all possible drug interactions are listed here. Where can I get more information? Your pharmacist can provide more information about omeprazole. Remember, keep this and all other medicines out of the reach of children, never share your medicines with others, and use this medication only for the indication prescribed. Every effort has been made to ensure that the information provided by [employer] is accurate, up-to-date, and complete, but no guarantee is made to that effect. Drug information contained herein may be time sensitive. [employer] information has been compiled for use by healthcare practitioners and consumers in the [place] and therefore [employer] does not warrant that uses outside of the [place] are appropriate, unless specifically indicated otherwise. [employer] drug information does not endorse drugs, diagnose patients or recommend therapy. [employer] drug information is an informational resource designed to assist licensed healthcare practitioners in caring for their patients and/or to serve consumers viewing this service as a supplement to, and not a substitute for, the expertise, skill, knowledge and judgment of healthcare practitioners. The absence of a warning for a given drug or drug combination in no way should be construed to indicate that the drug or drug combination is safe, effective or appropriate for any given patient. [employer] does not assume any responsibility for any aspect of healthcare administered with the aid of information [employer] provides. The information contained herein is not intended to cover all possible uses, directions, precautions, warnings, drug interactions, allergic reactions, or adverse effects. If you have questions about the drugs you are taking, check with your doctor, nurse or pharmacist. Copyright 8668-0653 [employer]. Version: 20.. Revision Date: 10/29/2018. ondansetron (oral) (on KURTIS se tadeo) Orlando Perry Zuplenz What is the most important information I should know about ondansetron? You should not use ondansetron if you are also using apomorphine (Apokyn). What is ondansetron? Ondansetron blocks the actions of chemicals in the body that can trigger nausea and vomiting. Ondansetron is used to prevent nausea and vomiting that may be caused by surgery, cancer chemotherapy, or radiation treatment. Ondansetron may be used for purposes not listed in this medication guide. What should I discuss with my health care provider before taking ondansetron? You should not use ondansetron if: ?? you are also using apomorphine (Apokyn); or ?? you are allergic to ondansetron or similar medicines (dolasetron, granisetron, palonosetron). To make sure ondansetron is safe for you, tell your doctor if you have: ?? liver disease; ?? an electrolyte imbalance (such as low levels of potassium or magnesium in your blood); ?? congestive heart failure, slow heartbeats; ?? a personal or family history of long QT syndrome; or ?? a blockage in your digestive tract (stomach or intestines). Ondansetron is not expected to harm an unborn baby. Tell your doctor if you are . It is not known whether ondansetron passes into breast milk or if it could harm a nursing baby. Tell your doctor if you are breast-feeding a baby. Ondansetron is not approved for use by anyone younger than 4 years old. Ondansetron orally disintegrating tablets may contain phenylalanine. Tell your doctor if you have phenylketonuria (PKU). How should I take ondansetron? Follow all directions on your prescription label. Do not take this medicine in larger or smaller amounts or for longer than recommended. Ondansetron can be taken with or without food. The first dose of ondansetron is usually taken before the start of your surgery, chemotherapy, or radiation treatment. Follow your doctor's dosing instructions very carefully. Take the ondansetron regular tablet with a full glass of water. To take the orally disintegrating tablet (Zofran ODT): ?? Keep the tablet in its blister pack until you are ready to take it. Open the package and peel back the foil. Do not push a tablet through the foil or you may damage the tablet. ?? Use dry hands to remove the tablet and place it in your mouth. ?? Do not swallow the tablet whole. Allow it to dissolve in your mouth without chewing. ?? Swallow several times as the tablet dissolves. To use ondansetron oral soluble film (strip) (Tatiana): ?? Keep the strip in the foil pouch until you are ready to use the medicine. ?? Using dry hands, remove the strip and place it on your tongue. It will begin to dissolve right away. ?? Do not swallow the strip whole. Allow it to dissolve in your mouth without chewing. ?? Swallow several times after the strip dissolves. If desired, you may drink liquid to help swallow the dissolved strip. ?? Wash your hands after using Zuplenz. Measure liquid medicine with the dosing syringe provided, or with a special dose-measuring spoon or medicine cup. If you do not have a dose-measuring device, ask your pharmacist for one. Store at room temperature away from moisture, heat, and light. Store liquid medicine in an upright position. What happens if I miss a dose? Take the missed dose as soon as you remember. Skip the missed dose if it is almost time for your next scheduled dose. Do not take extra medicine to make up the missed dose. What happens if I overdose? Seek emergency medical attention or call the Poison Help line at . Overdose symptoms may include sudden loss of vision, severe constipation, feeling light-headed, or fainting. What should I avoid while taking ondansetron? Ondansetron may impair your thinking or reactions. Be careful if you drive or do anything that requires you to be alert. What are the possible side effects of ondansetron? Get emergency medical help if you have signs of an allergic reaction: rash, hives; fever, chills, difficult breathing; swelling of your face, lips, tongue, or throat. Call your doctor at once if you have: ?? severe constipation, stomach pain, or bloating; ?? headache with chest pain and severe dizziness, fainting, fast or pounding heartbeats; ?? fast or pounding heartbeats; ?? jaundice (yellowing of the skin or eyes); ?? blurred vision or temporary vision loss (lasting from only a few minutes to several hours); ?? high levels of serotonin in the body--agitation, hallucinations, fever, fast heart rate, overactive reflexes, nausea, vomiting, diarrhea, loss of coordination, fainting. Common side effects may include: ?? diarrhea or constipation; ?? headache; ?? drowsiness; or ?? tired feeling. This is not a complete list of side effects and others may occur. Call your doctor for medical advice about side effects. You may report side effects to FDA at 0-508-PVT-0542. What other drugs will affect ondansetron? Ondansetron can cause a serious heart problem, especially if you use certain medicines at the same time, including antibiotics, antidepressants, heart rhythm medicine, antipsychotic medicines, and medicines to treat cancer, malaria, HIV or AIDS. Tell your doctor about all medicines you use, and those you start or stop using during your treatment with ondansetron. Taking ondansetron while you are using certain other medicines can cause high levels of serotonin to build up in your body, a condition called 'serotonin syndrome,' which can be fatal. Tell your doctor if you also use: ?? medicine to treat depression; ?? medicine to treat a psychiatric disorder; ?? a narcotic (opioid) medication; or ?? medicine to prevent nausea and vomiting. This list is not complete and many other drugs can interact with ondansetron. This includes prescription and brfz-lbb-ftupwly medicines, vitamins, and herbal products. Give a list of all your medicines to any healthcare provider who treats you. Where can I get more information? Your pharmacist can provide more information about ondansetron. Remember, keep this and all other medicines out of the reach of children, never share your medicines with others, and use this medication only for the indication prescribed. Every effort has been made to ensure that the information provided by [employer]. ('[employer]') is accurate, up-to-date, and complete, but no guarantee is made to that effect. Drug information contained herein may be time sensitive. [employer] information has been compiled for use by healthcare practitioners and consumers in the [place] and therefore [employer] does not warrant that uses outside of the [place] are appropriate, unless specifically indicated otherwise. [employer] drug information does not endorse drugs, diagnose patients or recommend therapy. [employer] drug information is an informational resource designed to assist licensed healthcare practitioners in caring for their patients and/or to serve consumers viewing this service as a supplement to, and not a substitute for, the expertise, skill, knowledge and judgment of healthcare practitioners. The absence of a warning for a given drug or drug combination in no way should be construed to indicate that the drug or drug combination is safe, effective or appropriate for any given patient. [employer] does not assume any responsibility for any aspect of healthcare administered with the aid of information [employer] provides. The information contained herein is not intended to cover all possible uses, directions, precautions, warnings, drug interactions, allergic reactions, or adverse effects. If you have questions about the drugs you are taking, check with your doctor, nurse or pharmacist. Copyright 7271-3684 [employer]. Version: 13.01. Revision Date: 05/10/2016. Emergency Awareness and Preventative Care STROKE is [...] Assistance with quitting is available by contacting 0-246-BONI-NOW. This is a free resource providing counseling, [...] CPR? There are two easy steps: Call if you see a teen or adult [...] This Visit (last charted value for your 03/19/2019 visit) Hematology 03/20/19 04:08:00 WBC: 12.8 K/uL -- Normal range between ( 3.9 and 10.0 ) RBC: 3.81 Million/uL -- Normal range between ( 3.93 and 5.22 ) Hct: 35.0 % -- Normal range between ( 34.1 and 44.9 ) Hgb: 11.5 Gram/dL -- Normal range between ( 11.2 and 15.7 ) Platelet Count: 215 K/uL -- Normal range between ( 163 and 369 ) MCH: 30.2 pg -- Normal range between ( 25.6 and 32.2 ) MCHC: 32.9 Gram/dL -- Normal range between ( 32.3 and 36.5 ) MCV: 91.9 fL -- Normal range between ( 79.0 and 94.8 ) Slide Review: No Eos %: 0.0 % -- Normal range between ( 1.0 and 7.0 ) [place] #: 0.63 K/uL -- Normal range between ( 0.24 and 0.82 ) Eos #: 0.00 K/uL -- Normal range between ( 0.04 and 0.54 ) [place] %: 4.9 % -- Normal range between ( 4.7 and 12.5 ) Baso %: 0.1 % -- Normal range between ( 0.0 and 1.0 ) Baso #: 0.01 K/uL -- Normal range between ( 0.01 and 0.08 ) RDW: 12.8 % -- Normal range between ( 11.6 and 14.4 ) Neut %: 87.3 % -- Normal range between ( 34.0 and 71.0 ) Neut #: 11.22 K/uL -- Normal range between ( 1.56 and 6.13 ) Lymph %: 7.2 % -- Normal range between ( 19.3 and 53.0 ) Lymph #: 0.92 K/uL -- Normal range between ( 1.18 and 3.74 ) MPV: 10.3 fL -- Normal range between ( 9.4 and 12.4 ) IG#: 0 x10(3)/uL IG%: 0 % -- Normal range between ( 0 and 1 ) General Chemistry 03/20/19 05:39:00 Glucose POC2: 105 mg/dL -- Normal range between ( 70 and 110 ) 03/20/19 04:08:00 Creatinine Level: 0.78 mg/dL -- Normal range between ( 0.55 and 1.02 ) Sodium Level: 139 mmol/L -- Normal range between ( 136 and 146 ) Potassium Level: 4.4 mmol/L -- Normal range between ( 3.5 and 5.1 ) Chloride Level: 108 mmol/L -- Normal range between ( 102 and 112 ) Carbon Dioxide Level: 24 mmol/L -- Normal range between ( 21 and 32 ) Anion Gap: 11 -- Normal range between ( 9 and 20 ) Bun/Creatinine: 12.8 -- Normal range between ( 8.0 and 20.0 ) Calcium Level: 8.2 mg/dL -- Normal range between ( 8.5 and 10.1 ) eGFR : >60 mL/min/1.73m2 eGFR NonAfrican: >60 mL/min/1.73m2 Glucose Level: 106 mg/dL -- Normal range between ( 74 and 106 ) Blood Urea Nitrogen: 10 mg/dL -- Normal range between ( 7 and 22 ) [facility] 03/19/19 07:44:00 HCG Urine Qualitative: Negative Patient Name:ETHAN GERBER I have received and understand this information and was given the opportunity to ask questions. Patient/Aeroplane Pilot Name: Patient/Aeroplane Pilot Signature: Relationship to Patient: Clinician/Hospital Aeroplane Pilot Signature: Date: documented in this encounter Plan of Treatment Not on file documented as of this encounter Visit Diagnoses Not on filedocumented in this encounter
--- OUTSIDE RECORDS SUMMARY | 2025-02-02 14:02 | XMS_ITS | Encounter Summary ---
Author Organization [employer] ([place], [place], [place], [place]) Address [address] [place] [address] Care Team Providers Care Director Of Outside Sales Name Role Phone Unavailable Primary Care Provider Unavailabl e Encounter Details Date Type Department Care Team (Late st Contact Info) Description 03/19/2019 Transcribed Document [facility] [place] Family Medicine [facility] [place] [address] ProviderCarlos MD [address] [place] [address] Social History Tobacco Use Types Packs/Day Years Used Date Smoking Tobacco: Never Assessed Comments Unknown Sex and Gender Information Value Date Recorded Sex Assigned at Not on file Legal Sex Female 6:39 PM CDT Gender Identity Not on file Sexual Orientation Not on file documented as of this encounter Miscellaneous Notes * Cerner Conversion Note - Carlos ProviderMD - 03/19/2019 7:48 AM CDT Pre Procedure Adult Entered On: 03/19/2019 7:51 EDT Performed On: 03/19/2019 7:48 EDT by Loraine Estrada RN Height and Weight, Clinical Dosing Height Source : Stated Height Entry Format : Kay Height, Feet : 5 ft(Converted to: 152 cm, 60 Inch) Height, Inches : 6.5 Inch(Converted to: 0 ft 7 Inch, 16.51 cm) Clinical Height : 168.91 cm Weight Source : Standing scale Weight Entry Format : Kay Clinical Dosing Weight : 109.45 kg Weight, Pounds : 240.8 lb Body Surface Area (BSA) : 2.18 m2 Body Mass Index : 38.4 kg/m2 (HI) [place] Body Weight : 60 kg Loraine Estrada RN - 03/19/2019 7:48 EDT Health Histories Smoking Status : Never (less than 100 in lifetime; none in last 30 days) Smokeless Tobacco Status : Never Loraine Estrada RN - 03/19/2019 7:48 EDT Social History (As Of: 03/19/2019 07:51:18 EDT) Tobacco: Never (less than 100 in lifetime) Smoking Status. (Last Updated: 02/01/2019 12:57:06 EDT by Katherine Hale, NICKOLAS) Alcohol: Alcohol Use History No. (Last Updated: 02/01/2019 12:57:09 EDT by Katherine Hale, NICKOLAS) Substance Abuse: Drug Use Hx: No. Use in Last 12 Months: No. (Last Updated: 02/01/2019 12:57:12 EDT by Katherine Hale RN) Nutrition/Health: Caffeine intake amount: 1 per day. (Last Updated: 02/01/2019 12:57:21 EDT by Katherine Hale RN) Infectious Disease History Infectious Disease History : Chicken pox/Shingles, Influenza Isolation Needed : Standard Fever/Chills Last 48 Hours : No Travel To Regions with Travel Advisories : No Travel Outside [place] Within Last 30 Days : No Contact With Traveler to Advisory Region : No Tuberculosis Symptoms : None Loraine Estrada RN - 03/19/2019 7:48 EDT Anesthesia/Transfusion History Family History of Anesthesia Reaction : No prior transfusion(s) Transfusion History : Prior anesthesia reaction Type of Anesthesia Reaction : Excessive nausea/vomiting Family History of Anesthesia Reaction : None Loraine Estrada RN - 03/19/2019 7:48 EDT Functional Assessment Living Situation : Home Patient Lives With : Spouse Persons Assisting Patient at Home : Spouse Current Daily Living Assistance : None Sensory Deficits : None Mobility Assistance Prior to Admission : Independent Current Home Treatments : None Home Equipment : None Professional Skilled Services : None Special Services and Community Resources : None Loraine Estrada RN - 03/19/2019 7:48 EDT Psychosocial History Do You Have a History of the Following? : Patient denies history Currently in Unsafe Situation : No Tried to Harm Yourself in the Past? : No Thoughts of Harming/Killing Yourself : No Loraine Estrada RN - 03/19/2019 7:48 EDT Advance Directive Patient has Advance Directive *Q : No, patient refuses Advance Directive information Loraine Estrada RN - 03/19/2019 7:48 EDT Spiritual/Cultural Needs Any Spiritual/Cultural Needs or Requests : No Loraine Estrada RN - 03/19/2019 7:48 EDT General Info Arrived From : Home Mode of Arrival on Unit : Ambulatory Patient Arrival Date/Time : 03/19/2019 7:05 EDT Legal Guardian : Spouse Support Person/Patient Pediatric Urologist : Yes Want Family/Rep/Phys Notified of Admit : No Emergency Contact #1 : Gilberto Emergency Contact #1 Emergency Contact #1 Relationship : spouse Emergency Contact #2 : . Emergency Contact #2 Phone Number : . Emergency Contact #2 Relationship : . Information Obtained From : Patient Primary Language : Belarusian Preferred Communication Mode : Verbal Communication Barrier : None Loraine Estrada RN - 03/19/2019 7:48 EDT Vital Measurements Temperature Source : Oral Temperature Mode : Fahrenheit Temperature, Fahrenheit : 98.1 Deg F Clinical Temperature, C : 36.7 Deg C Peripheral Pulse Rate : 70 bpm Respiratory Rate : 16 Breaths/Min Systolic Blood Pressure : 114 mmHg Diastolic Blood Pressure : 66 mmHg Oxygen Saturation : 99 % Oxygen Therapy Mode : Room air Loraine Estrada RN - 03/19/2019 7:52 EDT Sleep Apnea Risk Assmt Hx of Obstructive Sleep Apnea Diagnosis : No Snore Loudly : Yes Tired, Fatigued, or Sleepy During Day : No Observed Stopping Breathing During Sleep : No Have/Are Being Treated for Hypertension : No BMI Greater Than 35 kg/m2 : Yes Age over 50 Years Old : No Neck Circumference Greater Than 40 cm : No Gender Male : No STOP-BANG Sleep Apnea Risk Level Score : 2 Loraine Estrada RN - 03/19/2019 7:48 EDT Mark Scale Mark Sensory Perception : No impairment Mark Moisture : Rarely moist Mark Activity : Walks frequently Mark Mobility : No limitation Mark Nutrition : Adequate Mark Friction and Shear : No apparent problem Mark Score : 22 Loraine Estrada RN - 03/19/2019 7:48 EDT Oxygen Therapy Oxygen Therapy Mode : Room air Loraine Estrada RN - 03/19/2019 7:48 EDT Pain Assessment Pain Assessment : Initial assessment Pain Scale Goal : 4 Pain Scale Used : 0-10 Scale Loraine Estrada RN - 03/19/2019 7:51 EDT Fall Risk Scales ABCs Fall Injury Risk Identification : None PARK Hx Falls Immediate/Within 3 Months : No Park Secondary Diagnosis : Yes PARK Use of Ambulatory Aid : None PARK IV Therapy or IV Access : Yes Park Gait/Transferring : Normal, bedrest, immobile Park Mental Status : Oriented to own ability Park Fall Risk Score : 35 PARK Fall Scale Risk Level : 25-45 Medium Risk [place] Fall Interventions : Adequate lighting, Bed in low position, Call device within reach, Hourly comfort/safety rounds, Non-slip footwear, Personal items within reach, Reinforced to call for assistance before getting out of bed, Room free of clutter/spills, Upper side-rails up, Wheels locked, Wires/Cords secured Loraine Estrada RN - 03/19/2019 7:51 EDT Fall Risk Education Grid Call light use : Verbalizes understanding Fall Prevention Protocol : Verbalizes understanding Nonskid Footwear Use : Verbalizes understanding Prevention Responsibility Patient : Verbalizes understanding Loraine Estrada RN - 03/19/2019 7:51 EDT Barriers to Learning : None evident Individuals Taught : Patient Readiness to Learn : Cooperative Learning Style Preferences Patient : Verbal explanation Teaching Evaluation : Verbalizes understanding Loraine Estrada RN - 03/19/2019 7:51 EDT Education Topics, Day of Surgery DayofSurgery Education Grid IV's : Verbalizes understanding Medication Instructions : Verbalizes understanding Plan of Care : Verbalizes understanding Loraine Estrada RN - 03/19/2019 7:48 EDT Valuables and Belongings Valuables and Belongings : Clothing, Personal devices Clothing : Common streetwear Clothing Disposition : With family Personal Device Disposition : With family Personal Devices : Contact lenses Loraine Estrada RN - 03/19/2019 7:51 EDT Pain Scale Intensity : 0 Loraine Estrada RN - 03/19/2019 7:51 EDT Image 4 - Images currently included in the form version of this document have not been included in the text rendition version of the form. [place] Coma [place] Best Motor Response : Obey commands Nori Best Verbal Response : Oriented [place] Eye Opening Response : Spontaneous [place] Coma Score : 15 Loraine Estrada RN - 03/19/2019 7:48 EDT documented in this encounter Plan of Treatment Not on file documented as of this encounter Visit Diagnoses Not on filedocumented in this encounter
--- OUTSIDE RECORDS SUMMARY | 2025-02-02 14:02 | XMS_ITS | Encounter Summary ---
Author Organization [employer] ([place], [place], [place], [place]) Address [address] [place] [address] Care Team Providers Care Curing Bin Operator Name Role Phone Unavailable Primary Care Provider Unavailabl e Encounter Details Date Type Department Care Team (Late st Contact Info) Description 03/19/2019 Transcribed Document [facility] [place] Family Medicine [facility] [place] [address] ProviderCarlos MD [facility] [place] [address] Social History Tobacco Use Types Packs/Day Years Used Date Smoking Tobacco: Never Assessed Comments Unknown Sex and Gender Information Value Date Recorded Sex Assigned at Not on file Legal Sex Female 6:39 PM CDT Gender Identity Not on file Sexual Orientation Not on file documented as of this encounter Miscellaneous Notes * Cerner Conversion Note - Carlos Early MD - 03/19/2019 3:55 PM CDT Final Discharge Planning Entered On: 03/19/2019 15:55 EDT Performed On: 03/19/2019 15:55 EDT by CASSIA AMIN RN-Heart Surgeon Final Discharge Planning Discharge Arrangements : Patient Post-Acute Information Patient Name: ETHAN GERBER Gender: Female : [birth year] Age: 43 Years No Post-Acute Placement(s) Listed No Post-Acute Service(s) Listed No [place] Referral(s) Listed Transportation Needs : Family/Friend Is Patient High/Moderate Readmission Risk? : No Discharge To Care Management : Home/Residential/Snf or Self Care -01 CASSIA AMIN RN-Heart Surgeon - 03/19/2019 15:55 EDT documented in this encounter Plan of Treatment Not on file documented as of this encounter Visit Diagnoses Not on filedocumented in this encounter
--- OUTSIDE RECORDS SUMMARY | 2025-02-02 14:02 | XMS_ITS | Encounter Summary ---
Author Organization [employer] ([place], [place], [place], [place]) Address [address] [place] [address] Care Team Providers Care Station Engineer Main Line Name Role Phone Unavailable Primary Care Provider Unavailabl e Encounter Details Date Type Department Care Team (Late st Contact Info) Description 03/31/2019 Transcribed Document [facility] [place] Family Medicine [facility] [place] [address] ProviderCarlos MD [facility] [place] [address] Social History Tobacco Use Types Packs/Day Years Used Date Smoking Tobacco: Never Assessed Comments Unknown Sex and Gender Information Value Date Recorded Sex Assigned at Not on file Legal Sex Female 6:39 PM CDT Gender Identity Not on file Sexual Orientation Not on file documented as of this encounter Miscellaneous Notes * Cerner Conversion Note - Carlos Early MD - 03/31/2019 2:36 PM CDT Patient: ETHAN GERBER Age: 43 Years Sex: Female : 1975 Admit Date 03/19/2019 04:38 Discharge Date 03/20/2019 15:16 Primary Care Provider HARRIS FELICIANO (REF) T Discharge Diagnosis Morbid obesity 03/19/2019 E66.01 ICD-10-CM Procedures SN - Proc - Procedure: Gastrectomy Sleeve Laparoscopic (03/19/19 09:37:04) Reason for Hospitalization Gastrectomy Sleeve Laparoscopic Vital Signs Oxygen Settings (Last) Oxygen Therapy Mode: Room air (03/20/19 09:00:00) Oxygen Flow Rate: 2 Liter/Min (03/19/19 18:42:00) Discharge Disposition Home Discharge Follow Up CLARY LAMBERT MD - 03/26/2019 09:00 Discharge Medications (1) Active Cymbalta 60 mg oral delayed release capsule 60 mg = 1 Cap, Oral, Daily [place] PRilosec Zofran Code Status No Code Status Order on Record Condition on Discharge Stable Consulting Physicians No Consulting Physician on Record. Current Diet Order No qualifying data available. Patient Discharge Summary Orders Discharge Follow Up Instructions: call office on friday for followup appointment Follow Up Instructions: followup one week from [id number] Activity: Discharge Activity: No heavy lifting over 10 lbs Diet: Warm liquids in the morning. May progress to full liquids and soft high protein foods as tolerated (Cottage cheese, chicken salad, eggs, etc). Make sure foods are wet . Drink 64 oz of fluids per day. Refer to James-handbook., Discharge Diet: Other (see Special Instructions) Pending Labs No Labs on Record Electronically signed by Forrest Mahajan Conversion Inspector Metal Fabricating Cerner at 11/08/2022 4:25 PM CDT documented in this encounter Plan of Treatment Not on file documented as of this encounter Visit Diagnoses Not on filedocumented in this encounter
--- OUTSIDE RECORDS SUMMARY | 2025-02-02 14:02 | XMS_ITS | Referral Summary ---
Author Organization [employer] ([place], [place], [place], [place]) Address [address] [place] [address] Care Team Providers Care Bilingual Receptionist Name Role Phone Unavailable Primary Care Provider Unavailabl e Social History Tobacco Use Types Packs/Day Years Used Date Smoking Tobacco: Never Assessed Comments Unknown Sex and Gender Information Value Date Recorded Sex Assigned at Not on file Legal Sex Female 6:39 PM CDT Gender Identity Not on file Sexual Orientation Not on file Plan of Treatment Not on file
--- OUTSIDE RECORDS SUMMARY | 2025-02-02 14:02 | XMS_ITS | Encounter Summary ---
Author Organization [employer] ([place], [place], [place], [place]) Address [address] [place] [address] Care Team Providers Care Motorboat Operator Name Role Phone Unavailable Primary Care Provider Unavailabl e Encounter Details Date Type Department Care Team (Late st Contact Info) Description 03/09/2019 Transcribed Document [facility] [place] Family Medicine [address] [place] [address] ProviderCarlos MD [address] [place] [address] Social History Tobacco Use Types Packs/Day Years Used Date Smoking Tobacco: Never Assessed Comments Unknown Sex and Gender Information Value Date Recorded Sex Assigned at Not on file Legal Sex Female 6:39 PM CDT Gender Identity Not on file Sexual Orientation Not on file documented as of this encounter Miscellaneous Notes * Cerner Conversion Note - Carlos Early MD - 03/09/2019 11:51 AM CDT UM Authorization Entered On: 03/09/2019 11:57 EDT Performed On: 03/09/2019 11:51 EDT by JUSTEN HEARD RN-Utilization Review Primary Insurance Authorization Authorization and Policy Numbers : Insurance 1 Health Plan: [facility] Policy Number: [id number] Authorization Number: [id number] Insurance Primary Name : [facility] Policy Number: [id number] Authorization Status-Primary : Admit approved Authorization Number-Primary : [id number] Number of Days Authorized-Primary : 1 Authorized Service Begin Date-Primary : 03/19/2019 EDT Authorized Service End Date-Primary : 03/19/2019 EDT Authorization Comments-Primary : [place] approved per Star note for 1 day inpt Historical Authorization Comments-Primary : No Authorization Comments Found JUSTEN HEARD RN-Utilization Review - 03/09/2019 11:51 EDT documented in this encounter Plan of Treatment Not on file documented as of this encounter Visit Diagnoses Not on filedocumented in this encounter
--- OUTSIDE RECORDS SUMMARY | 2025-02-02 14:02 | XMS_ITS | Patient Health Record ---
Author Organization [facility] Address [address] [place] [address] Care Team Providers Care Stitch Rubber Name Role Phone Jia Costa Unavailable [phone] Rekha Milka Unavailable [phone] Allergies Allergen (clinical drug ingredient) Drug/Non Drug Allergy documented on EMR Reaction Allergy Type Onset Date Status acetaminophen / oxycodone Percocet vomiting Drug Allergy Active Reason For Referral No Information Medications Medication SIG (Take, Route, Frequency, Duration) Notes Start Date End Date Status DULoxetine HCl 60 MG Capsule Delayed Release Particles Oral; Duration: 30 Days Active Wegovy Active Omeprazole 20 MG Capsule Delayed Release Oral; Duration: 90 Days Active Estradiol 2 MG Tablet Take 1 tablet by mouth once daily Orally Once a day; Duration: 90 days will need appt for further fills Active Social History Tobacco Use: Social History Observation Description Date Details (start date - stop date) Never Smoker NA - NA Sex Assigned At : Social History Observation Description Sex Assigned At Female Social History Drugs/Alcohol: Social Info Question Answer Notes Alcohol Screen Did you have a drink containing alcohol in the past year? Yes How often did you have a drink containing alcohol in the past year? Monthly or less (1 point) Points 1 Interpretation Negative Tobacco Use: Social Info Question Answer Notes Tobacco Use/Smoking Are you a nonsmoker Additional Details Category Social Info Options Details Miscellaneous: Sexually active: SEXUAL AC TIV: Current Vital Signs Heart Rate 78 /min 09/14/2024 Oximetry 98 % 09/14/2024 Blood pressure diastolic 60 mm Hg 09/14/2024 Height 68 in 09/14/2024 Blood pressure systolic 100 mm Hg 09/14/2024 Weight 170.0 lbs 09/14/2024 BMI 25.85 kg/m2 09/14/2024 Encounters Encounter Location Date Provider Diagnosis [facility] [address] [place] [address] 09/14/2024 Milka Da Silva Title Lawyer exam without abnormal findings Z01.419 ; Encounter for screening mammogram for malignant neoplasm of breast Z12.31 and Postmenopausal HRT (hormone replacement therapy) Z79.890 Assessments Encounter Date Diagnosis (ICD Code) Assessment Notes Treatment Notes Treatment Clinical Notes Section Notes 09/14/2024 Title Lawyer exam without abnormal findings (ICD-10 - Z01.419) Normal annual exam Pap not indicated per ASCCP guidelines BSE/MMG encouraged UTD on colonoscopy F/u annual exam or prn 09/14/2024 Encounter for screening mammogram for malignant neoplasm of breast (ICD-10 - Z12.31) 09/14/2024 Postmenopausal HRT (hormone replacement therapy) (ICD-10 - Z79.890) Plan Of Treatment Next Appt Details Provider Name:Lakesha Hilliard , 09/16/2025 01:30:00 PM, [address], [place], [address], Insurance Providers Payer Name Payer Address Payer Phone Subscriber Number Group Number Insured Name Patient Relationship to Insured Coverage Start Date Coverage End Date [employer] [address] [place] [address] [id number] Ailyn Gerber Self - patient is the insured 2 Medical (General) History Medical History History ICD Code abnormal pap acid reflux anxiety depression diabetes uterine fibroid obesity UYI Yeast infections Menometrorrhagia Surgical History Surgery Date(Month/Year) 07-17-2020 [facility] BSO gastric sleeve 2019 myomectomy D&C 1997 c/s x2 Hospitalization History Reason Date(Month/Year) see above x2
--- OUTSIDE RECORDS SUMMARY | 2025-02-02 14:02 | XMS_ITS | Encounter Summary ---
Author Organization [employer] ([place], [place], [place], [place]) Address [address] [place] [address] Care Team Providers Care Rn Palliative Name Role Phone Unavailable Primary Care Provider Unavailabl e Encounter Details Date Type Department Care Team (Late st Contact Info) Description 03/19/2019 Transcribed Document [facility] [place] Medicine [facility] [place] [address] ProviderCarlos MD [facility] [place] [address] Social History Tobacco Use Types Packs/Day Years Used Date Smoking Tobacco: Never Assessed Comments Unknown Sex and Gender Information Value Date Recorded Sex Assigned at Not on file Legal Sex Female 6:39 PM CDT Gender Identity Not on file Sexual Orientation Not on file documented as of this encounter Miscellaneous Notes * Cerner Conversion Note - Carlos ProviderMD - 03/19/2019 4:38 AM CDT Admission History, Adult Entered On: 03/19/2019 12:06 EDT Performed On: 03/19/2019 4:38 EDT by Diane Martinez Rn Advance Directive Patient has Advance Directive *Q : No, patient refuses Advance Directive information Diane Martinez Rn - 03/19/2019 12:05 EDT Anesthesia/Transfusion History Family History of Anesthesia Reaction : No prior transfusion(s) Transfusion History : Prior anesthesia reaction Type of Anesthesia Reaction : Excessive nausea/vomiting Family History of Anesthesia Reaction : None Diane Martinez Rn - 03/19/2019 12:05 EDT Anticipated Discharge Needs Discharge To, Anticipated : Home Diane Martinez Rn - 03/19/2019 12:05 EDT Education Topics, Admission Orientation DCP GENERIC CODE Advance Directives : Verbalizes understanding Allergy Band Applied : Verbalizes understanding Assessment/Vital Signs : Verbalizes understanding Bed Control : Verbalizes understanding Call Light : Verbalizes understanding Confidentiality : Verbalizes understanding Diet/Room Service : Verbalizes understanding Fall Prevention : Verbalizes understanding Hand Hygiene : Verbalizes understanding Healthcare Provider Visit : Verbalizes understanding ID Band Applied : Verbalizes understanding Isolation Precautions : Verbalizes understanding Orientation to Room/Bathroom : Verbalizes understanding Patient Bill of Rights : Verbalizes understanding Patient Rights/Responsibilities : Verbalizes understanding Patient Safety : Verbalizes understanding Personal Privacy Code : Verbalizes understanding Rapid Response Initiated by Patient/Family : Verbalizes understanding Rounding : Verbalizes understanding Siderails use/risks : Verbalizes understanding Skin Precautions : Verbalizes understanding Smoking Policy : Verbalizes understanding Telemetry Monitoring : Verbalizes understanding Television/Phone : Verbalizes understanding Visiting Policy : Verbalizes understanding Diane Martinez Rn - 03/19/2019 12:05 EDT Functional Assessment Living Situation : Home Patient Lives With : Spouse Persons Assisting Patient at Home : Spouse Current Daily Living Assistance : None Sensory Deficits : None Mobility Assistance Prior to Admission : Independent PARK Hx Falls Immediate/Within 3 Months : No Current Home Treatments : None Home Equipment : None Professional Skilled Services : None Special Services and Community Resources : None Diane Martinez Rn - 03/19/2019 12:05 EDT General Info Arrived From : Home Mode of Arrival on Unit : Ambulatory Legal Guardian : Spouse Support Person/Patient Ladder Operator : Yes Want Family/Rep/Phys Notified of Admit : No Emergency Contact #1 : Gilberto Emergency Contact #1 Emergency Contact #1 Relationship : spouse Emergency Contact #2 : . Emergency Contact #2 Phone Number : . Emergency Contact #2 Relationship : . Information Obtained From : Patient Primary Language : Faroese Preferred Communication Mode : Verbal Communication Barrier : None Diane Martinez Rn - 03/19/2019 12:05 EDT Fall Risk Scales ABCs Fall Injury [...] 35 PARK Fall Scale Risk Level : 46 or > High Risk [place] Fall Interventions : Adequate lighting, Assistive devices within reach, Bed in low position, Frequent orientation to call device, Frequent orientation to surroundings, Hourly comfort/safety rounds, Non-slip footwear, Personal items within reach, Reinforced to call for assistance before getting out of bed, Room free of clutter/spills, Upper side-rails up, Wheels locked, Wires/Cords secured Barriers to Learning : None evident Learning Style Preferences Patient : Verbal explanation Diane Martinez Rn - 03/19/2019 12:05 EDT Health Histories Smoking Status : Never (less than 100 in lifetime; none in last 30 days) Smokeless Tobacco Status : Never Diane Martinez Rn - 03/19/2019 12:05 EDT Social History (As Of: 03/19/2019 12:06:12 EDT) Tobacco: Never (less than 100 in [...] 02/01/2019 12:57:21 EDT by Katherine Hale RN) Height and Weight, Clinical Dosing Height Source : Stated Height Entry Format : [place] Height, Feet : 5 ft(Converted to: 152 cm, 60 Inch) Height, Inches : 6.5 Inch(Converted to: 0 ft 7 Inch, 16.51 cm) Clinical Height : 168.91 cm Weight Source : Standing scale Weight Entry Format : [place] Clinical Dosing Weight : 109.45 kg Weight, Pounds : 240.8 lb Body Surface Area (BSA) : 2.18 m2 Body Mass Index : 38.4 kg/m2 (HI) [place] Body Weight : 60 kg Diane Martinez Rn - 03/19/2019 12:05 EDT Infectious Disease History Infectious Disease History : Chicken pox/Shingles, Influenza Isolation Needed : Standard Fever/Chills Last 48 Hours : No Travel To Regions with Travel Advisories : No Travel Outside [place] Within Last 30 Days : No Contact With Traveler to Advisory Region : No Tuberculosis Symptoms : None Diane Martinez Rn - 03/19/2019 12:05 EDT Tetanus Immunization Status Previous Tetanus Immunizations : No qualifying data available. Diane Martinez Rn - 03/19/2019 12:05 EDT Influenza Vaccine Asmt, Adult Previous Vaccines from Immunization Schedule : No qualifying data available. Influenza Immunization, Current Season : Outside of influenza season Diane Martinez Rn - 03/19/2019 12:05 EDT Pneumococcal Vaccine Previous Vaccines from Immunization Schedule : No qualifying data available. Pneumonia Immunization Received : No Pneumococcal Risk Assessment < Age 65 : None Diane Martinez Rn - 03/19/2019 12:05 EDT Order Details Order Detail : 0 IV Order Detail : 1 Oxygen Order Detail : 1 Nurse Collect Order Detail : 0 Lift/Transfer : Minimal Central Line Order Detail : No Room Service : Not Appropriate Arterial Line : No Diane Martinez Rn - 03/19/2019 12:05 EDT Nutrition History Eating Poorly Due to Decreased Appetite : No Unplanned Weight Loss in Past 3-6 Months : No Malnutrition Screening Tool Total(mal) : 0 Malnutrition Screening Tool Risk Level : Patient not at risk Diane Martinez Rn - 03/19/2019 12:05 EDT Psychosocial History Do You Have a History of the Following? : Patient denies history Currently in Unsafe Situation : No Tried to Harm Yourself in the Past? : No Thoughts of Harming/Killing Yourself : No Diane Martinez Rn - 03/19/2019 12:05 EDT Sleep Apnea Risk Assmt Hx of [...] Sleep Apnea Risk Level Score : 2 Diane Martinez Rn - 03/19/2019 12:05 EDT Spiritual/Cultural Needs Any Spiritual/Cultural Needs or Requests : No Diane Martinez Rn - 03/19/2019 12:05 EDT Valuables and Belongings Valuables and Belongings : Clothing, Personal devices Clothing : Common streetwear Clothing Disposition : With family Personal Device Disposition : With family Personal Devices : Contact lenses Diane Martinez Rn - 03/19/2019 12:05 EDT documented in this encounter Plan of Treatment Not on file documented as of this encounter Visit Diagnoses Not on filedocumented in this encounter
--- OUTSIDE RECORDS SUMMARY | 2025-02-02 14:02 | XMS_ITS | Encounter Summary ---
Author Organization [employer] ([place], [place], [place], [place]) Address [address] [place] [address] Care Team Providers Care Machinery Repair Maintenance Supervisor Name Role Phone Unavailable Primary Care Provider Unavailabl e Encounter Details Date Type Department Care Team (Late st Contact Info) Description 03/19/2019 Transcribed Document [facility] [place] Family Medicine [facility] [place] [address] ProviderCarlos MD [address] [place] [address] Social History Tobacco Use Types Packs/Day Years Used Date Smoking Tobacco: Never Assessed Comments Unknown Sex and Gender Information Value Date Recorded Sex Assigned at Not on file Legal Sex Female 6:39 PM CDT Gender Identity Not on file Sexual Orientation Not on file documented as of this encounter Miscellaneous Notes * Cerner Conversion Note - Carlos ProviderMD - 03/19/2019 12:01 PM CDT Pain Assessment Entered On: 03/20/2019 6:29 EDT Performed On: 03/20/2019 2:23 EDT by Jeevan Winchester RN Intervention Information: HYDROmorphone Performed by Jeevan Winchester RN on 03/20/2019 01:53:00 EDT HYDROmorphone,0.5mg IV Push,Peripheral Line 1,Pain (Severe 7-10) Pain Assessment Pain Assessment : Follow-up assessment Pain Scale Goal : 4 Pain Scale Used : 0-10 Scale Jeevan Winchester RN - 03/20/2019 6:29 EDT Pain Scale Intensity : 2 Jeevan Winchester RN - 03/20/2019 6:29 EDT Image 4 - Images currently included in the form version of this document have not been included in the text rendition version of the form. documented in this encounter Plan of Treatment Not on file documented as of this encounter Visit Diagnoses Not on filedocumented in this encounter
--- OUTSIDE RECORDS SUMMARY | 2025-02-02 14:02 | XMS_ITS | Encounter Summary ---
Author Organization [employer] ([place], [place], [place], [place]) Address [address] [place] [address] Care Team Providers Care Pre Billing Specialist Name Role Phone Unavailable Primary Care Provider Unavailabl e Encounter Details Date Type Department Care Team (Late st Contact Info) Description 03/19/2019 Transcribed Document [place] Family Medicine [address] [place] [address] ProviderCarlos MD [address], [place] [id number] Social History Tobacco Use Types Packs/Day Years Used Date Smoking Tobacco: Never Assessed Comments Unknown Sex and Gender Information Value Date Recorded Sex Assigned at Not on file Legal Sex Female 6:39 PM CDT Gender Identity Not on file Sexual Orientation Not on file documented as of this encounter Miscellaneous Notes * Cerner Conversion Note - Carlos Eraly MD - 03/19/2019 11:48 AM CDT UM Authorization Entered On: 03/19/2019 11:48 EDT Performed On: 03/19/2019 11:48 EDT by ROBIN CANALES RN-Utilization Review Primary Insurance Authorization Authorization and Policy Numbers : Insurance 1 Health Plan: [facility] Policy Number: [id number] Authorization Number: [id number] Insurance Primary Name : [facility] Policy Number: [id number] Authorization Status-Primary : Admit approved Authorization Number-Primary : [id number] Number of Days Authorized-Primary : 1 Authorized Service Begin Date-Primary : 03/19/2019 EDT Authorized Service End Date-Primary : 03/19/2019 EDT Historical Authorization Comments-Primary : Comment 1: [place] approved per Star note for 1 day inpt (JUSTEN HEARD RN-Utilization Review 03/09/2019 11:51) ROBIN CANALES RN-Utilization Review - 03/19/2019 11:48 EDT documented in this encounter Plan of Treatment Not on file documented as of this encounter Visit Diagnoses Not on filedocumented in this encounter
--- OUTSIDE RECORDS SUMMARY | 2025-02-02 14:02 | XMS_ITS | Encounter Summary ---
Author Organization [employer] ([place], [place], [place], [place]) Address [address] [place] [address] Care Team Providers Care Synthetic Cloth Binding Cutter Name Role Phone Unavailable Primary Care Provider Unavailabl e Encounter Details Date Type Department Care Team (Late st Contact Info) Description 03/21/2019 Transcribed Document [facility] [place] [facility] [place] [address] ProviderCarlos MD [address] [place] [address] Social History Tobacco Use Types Packs/Day Years Used Date Smoking Tobacco: Never Assessed Comments Unknown Sex and Gender Information Value Date Recorded Sex Assigned at Not on file Legal Sex Female 6:39 PM CDT Gender Identity Not on file Sexual Orientation Not on file documented as of this encounter Miscellaneous Notes * Cerner Conversion Note - Carlos ProviderMD - 03/21/2019 12:01 AM CDT Pain Assessment Entered On: 03/20/2019 6:29 EDT Performed On: 03/20/2019 6:31 EDT by Jeevan Winchester RN Intervention Information: acetaminophen-HYDROcodone Performed by Jeevan Winchester RN on 03/20/2019 05:31:00 EDT acetaminophen-HYDROcodone,2Tab Oral,Pain (Moderate 4-6) Pain Assessment Pain Assessment : Follow-up assessment Pain Scale Goal : 4 Pain Scale Used : 0-10 Scale Jeevan Winchester RN - 03/20/2019 6:29 EDT Pain Scale Intensity : 3 Jeevan Winchester RN - 03/20/2019 6:29 EDT Image 4 - Images currently included in the form version of this document have not been included in the text rendition version of the form. documented in this encounter Plan of Treatment Not on file documented as of this encounter Visit Diagnoses Not on filedocumented in this encounter
--- OUTSIDE RECORDS SUMMARY | 2025-02-02 14:02 | XMS_ITS | Patient Health Record ---
Author Organization [facility] Address [address] [facility] [address] [place] [id number] Care Team Providers Care Employment Clerk Name Role Phone Feliberto Cesar Primary Care Provider Allergies No Known Allergies Results Component Value Reference Range Notes Estimated Average Glucose Reviewed date:10/21/2024 02:56:10 PM Interpretation: Normal Performing Lab: Notes/Report: Test performed by [facility] [address] [place] [address] , [address], [place] [address] Carlos Murcia MD, Regional Hr Manager CLIA: [id number] Estimated Average Glucose (eAG) 88 Estimated Average Glucose (eAG) is calculated using the equation eAG = (28.7 x HbA1c) - 46.7 based on the guidelines established by the ADA. If the patient has certain diseases including kidney disease, sickle cell anemia, thalassemia, or is taking medications such as dapsone, erythropoietin, or iron, eAG should not be evaluated. TEN-UTI panel Reviewed date:10/28/2024 11:30:53 AM Interpretation:Staphylococcus saprophyticus Performing Lab: Notes/Report: Staphylococcus saprophyticus Urinalysis - Inhouse Reviewed date:10/26/2024 12:49:08 PM Interpretation: Performing Lab: Notes/Report: Color/Clarity yellow/cloudy Leuk 3+ Nitrite Neg Urobili 3.2 Protein 2+ pH 7.0 Blood 2+ Sp. Gr. 1.025 Ketone Trace Bili Neg Gluc Neg Urinalysis - Inhouse Reviewed date:01/19/2025 04:52:43 PM Interpretation: Performing Lab: Notes/Report: Color/Clarity Dark Yellow/Cloudy Leuk Neg Nitrite Pos Urobili 3.2 Protein Neg pH 3.2 Blood Neg Sp. Gr. 1.020 Ketone Neg Bili Neg Gluc Neg P-Comprehensive Metabolic Pa ariane ([facility]) Reviewed date:10/21/2024 02:56:10 PM Interpretation: Normal Performing Lab: Notes/Report: Test performed by [facility] [address] [place], [place] [address] [place] , [place] [address] Carlos Murcia MD, Regional Hr Manager CLIA: [id number] Sodium 142 135-145 mmol/L Potassium 4.2 3.5-5.3 mmol/L Chloride 105 97-108 mmol/L CO2 28 22-32 mmol/L Glucose 78 65-99 mg/dL BUN 13 6-20 mg/dL Creatinine 0.99 0.50-1.00 mg/dL Calcium 8.9 8.6-10.4 mg/dL eGFR by Creatinine 69 >59 mL/min/1.73m2 Protein 6.0 6.0-8.3 g/dL Albumin 3.9 3.5-5.3 g/dL Alkaline Phosphatase 51 35-121 IU/L ALT (SGPT) 20 <5-47 IU/L AST (SGOT) 22 <5-40 IU/L Bilirubin, Total <0.2 <0.2-1.2 mg/dL A/G Ratio 1.9 1.1-2.5 P-Hemoglobin A1C Reviewed date:10/21/2024 02:56:10 PM Interpretation: Normal Performing Lab: Notes/Report: Test performed by [facility] [address] [place], [place] [address] [place] , [address], [place] [address] Carlos Murcia MD, Regional Hr Manager CLIA: [id number] Hemoglobin A1C 4.7 <5.7 % The following HbA1c ranges recommended by the [place] [employer] (ADA) may be used as an aid in the diagnosis of diabetes mellitus. HbA1c Suggested Diagnosis >=6.5% Diabetic 5.7% - 6.4% Pre-Diabetic <5.7% Non-Diabetic P-Lipid Panel Reviewed date:10/21/2024 02:56:10 PM Interpretation:Non-hdl chol 137 Performing Lab: Notes/Report: Test performed by [facility] [address] [place] [address] Luanne [address] C, [place] [address] Carlos Murcia MD, Regional Hr Manager CLIA: [id number] Cholesterol 193 <200 mg/dL Triglycerides 109 <150 mg/dL HDL Cholesterol 56 >39 mg/dL Cholesterol / HDL Ratio 3.45 0.00-4.44 Ratio Non-HDL Cholesterol 137 <130 mg/dL LDL Cholesterol (Calculation) 115 <130 mg/dL LDL Cholesterol Levels* Less than 100 mg/dL Optimal 100 to 129 mg/dL Near Optimal/ Above Optimal 130 to 159 mg/dL Borderline High 160 to 189 mg/dL High 190 mg/dL and above Very High * Categories as recommended by the 2004 ATPIII guidelines LDL/HDL Ratio 2.1 <3.3 Ratio LDL Cholesterol Patient History Test Date: 10/20/2024 LDL Results: 115 Units: mg/dL % Change: - P-TSH reflex to FT4 Reviewed date:10/21/2024 02:56:10 PM Interpretation: Normal Performing Lab: Notes/Report: Test performed by [facility] [address] [place] [address] [address] C, [place] [address] Carlos Murcia MD, Regional Hr Manager CLIA: [id number] TSH reflex to FT4 0.78 0.43-5.25 mU/L P-Microalbumin/Creatinine, R andom Urine Sample Reviewed date:10/21/2024 02:56:10 PM Interpretation: Normal Performing Lab: Notes/Report: Test performed by [facility] [address] , [address], [place] [address] Carlos Murcia MD, Regional Hr Manager CLIA: [id number] Albumin/Creatinine Ratio, Urine 4 0-30 ug/mg Microalbumin, Urine, Random 0.3 Creatinine, Urine 76.9 P-Vitamin D 25-Hydroxy Reviewed date:10/21/2024 02:56:10 PM Interpretation:47.1 Performing Lab: Notes/Report: Test performed by [facility] [address] , [address], [place] [address] Carlos Murcia MD, Regional Hr Manager CLIA: [id number] Vitamin D 25-Hydroxy 47.1 30.0-100.0 ng/mL Interpretation of Vitamin D 25 OH: < 20 ng/mL - Deficiency 20 - 29 ng/mL - Insufficiency 30 - 100 ng/mL - Sufficiency > 100 ng/mL - Super-therapeutic- toxicity may occur above this level. Clinical correlation required. Urinalysis - Inhouse Reviewed date:12/26/2024 06:17:10 PM Interpretation: Performing Lab: Notes/Report: Color/Clarity yellow/cloudy Leuk Neg Nitrite Pos Urobili 3.2 Protein Neg pH 7.0 Blood Neg Sp. Gr. 1.015 Ketone Neg Bili Neg P-Culture, Urine Reviewed date:12/29/2024 12:02:34 PM Interpretation:sensitive Performing Lab: Notes/Report: Test performed by [facility] [address] [place] [address] , [address], [place] [address] Carlos Murcia MD, Regional Hr Manager CLIA: [id number] Specimen Source Urine - Not Specified Culture, Urine See Below See Microbiol ogy Report Escherichia coli 50,000-100,000 CFU/m l Escherichia coli Sensitivity Panel See Below Organism E. coli Antibiotic INTERP Amikacin S Ampicillin S Aztreonam S Cefepime S Cefoxitin S Ceftazidime S Ceftriaxone S Cefuroxime S Ciprofloxacin S Ertapenem S Gentamicin S Imipenem S Levofloxacin S Meropenem S Nitrofurantoin S Piperacillin/Tazo S Tetracycline R Tobramycin S Trimeth/Sulfa R S=SUSCEPTIBLE I=INTERMEDIATE R=RESISTANT Medications Medication SIG (Take, Route, Frequency, Duration) Notes Start Date End Date Status Cymbalta 60 MG 1 cap(s) orally once a day; Duration: 90 days Active Wegovy 2.4 MG/0.75ML INJECT 1 SYRINGE SUBCUTANEOUSLY ONCE A WEEK; Duration: 28 THIS WAS SENT ON 01/06! Verified with pharmacy that it was received! Active Estradiol 2 MG 1 tab(s) orally once a day; Duration: 30 day(s) Active Macrobid 100 MG 1 capsule with food Orally every 12 hrs; Duration: 5 days 12/25/2024 Active Omeprazole 20 MG 1 cap(s) orally once a day; Duration: 90 days Active Myrbetriq 25 MG 1 tablet Orally Once a day; Duration: 30 days 12/25/2024 Active Immunizations Vaccine Route Administration Date Status Comme nts Tetanus Tdap-Adacel (over 7yrs) IM Intramuscular 05/21/2012 Administered Tetanus Tdap-Adacel (over 7yrs) IM Intramuscular 03/20/2018 Administered PNEUMOVAX 23 VACCINE Unknown 09/27/2018 Administered Hepatitis A (adult) IM Intramuscular 03/20/2018 Administer ed Hepatitis A (adult) Unknown 09/27/2018 Administered Fluzone Quad (6months&older) IM Intramuscular 05/07/2017 Administered Fluzone Quad (6months&older) IM Intramuscular 03/20/2018 Administered Fluzone PF Quad (6-35 months) Unknown 05/17/2019 Administered Fluzone PF Quad (6-35 months) Unknown 05/15/2020 Administered COVID 19 Moderna Unknown 08/09/2020 Administered COVID 19 Moderna Unknown 09/08/2020 Administered Problems Problem Type SNOMED Code ICD Code Onset Dates Problem Status W/U Status Risk Notes Problem Arthropathy of lumbar facet joint (171234922) Lumbar facet arthropathy (M47.816) Active confirmed Problem Mixed hyperlipidemia (873325462) Mixed hyperlipidemia (E78.2) Active confirmed Problem Osteophyte of bone (984728811262644) Osteophyte, vertebrae (M25.78) Active confirmed Problem Degeneration of lumbar intervertebral disc (73022320) Other intervertebral disc degeneration, lumbar region (M51.36) Active confirmed Problem Sciatica (39397739) Lumbago with sciatica, left side (M54.42) Active confirmed Problem Urge incontinence of urine (40696181) Urge incontinence (N39.41) Active confirmed Problem Dysmenorrhea (891658139) Dysmenorrhea (N94.6) Active confirmed Problem Depressive disorder (18754734) Depressive disorder (F32.9) Active confirmed Problem Blood chemistry abnormal (336357356) Low serum vitamin D (R79.89) Active confirmed Problem Type II diabetes mellitus without complication (854661886) Type 2 diabetes mellitus without complication, without long-term current use of insulin (E11.9) Active confirmed Problem Lumbosacral spondylosis without myelopathy (95445876) Osteoarthritis of lumbar spine, unspecified spinal osteoarthritis complication status (M47.816) Active confirmed Problem Obesity (417719318) Non morbid o besity (E66.9) Active confirmed Problem Gastroesophageal reflux disease (343182599) Gastroesophageal reflux disease, unspecified whether esophagitis present (K21.9) Active confirmed Problem History of diabetes mellitus type 2 (346623836) History of diabetes mellitus, type II (Z86.39) Active confirmed Vital Signs Heart Rate 75 /min 12/25/2024 Blood pressure diastolic 60 mm Hg 12/25/2024 Height 67 in 12/25/2024 Blood pressure systolic 100 mm Hg 12/25/2024 Weight 170.4 lbs 12/25/2024 BMI 26.69 kg/m2 12/25/2024 Encounters Encounter Location Date Provider Diagnosis [place] [address] [facility] [address] [place] [id number] 04/07/2024 Feliberto [place] Type 2 diabetes ryan itus without complication, without long-term current use of insulin E11.9 ; Mixed hyperlipidemia E78.2 ; Low serum vitamin D R79.89 and Depressive disorder F32.9 [facility] [facility] [address] [place], [place] [id number] 10/20/2024 Feliberto [place] Type 2 diabetes ryan itus without complication, without long-term current use of insulin E11.9 ; Mixed hyperlipidemia E78.2 ; Low serum vitamin D R79.89 ; Non morbid obesity E66.9 and BMI 26.0-26.9,adult Z68.26 [facility] [facility] [facility] [address] [place], [place] [id number] 10/25/2024 Feliberto [place] Acute cystitis witho ut hematuria N30.00 and BMI 26.0-26.9,adult Z68.26 [facility] [address] [facility] [address] [place], [place] [id number] 12/25/2024 Feliberto [place] UTI (lower urinary t ract infection) N39.0 ; Urge incontinence N39.41 and BMI 26.0-26.9,adult Z68.26 [facility] [address] [facility] [address] [place], [place] [id number] 01/14/2025 Feliberto [place] Dysuria R30.0 [facility] [address] [facility] [address] [place] [id number] 01/31/2025 Feliberto [place] Dysuria R30.0 and Hi story of UTI Z87.440 [facility] [facility] [facility] [address] [place], [place] [id number] 03/30/2024 Feliberto [place] [facility] [facility] [facility] [address] [place] [id number] 10/16/2024 Feliberto [place] [facility] [address] [place] [id number] 10/18/2024 Feliberto [place] [facility] [address] [place] [id number] 10/21/2024 Feliberto [place] [facility] [address] [place] [id number] 01/04/2025 Feliberto [place] Assessments Encounter Date Diagnosis (ICD Code) Assessment Notes Treatment Notes Treatment Clinical Notes Section Notes 04/07/2024 Mixed hyperlipidemia (ICD-10 - E78.2) 04/07/2024 Type 2 diabetes mellitus without complication, without long-term current use of insulin (ICD-10 - E11.9) Will return to clinic for fasting labs CMP, Lipid, A1C, Urine Micro, TSH w/ Reflex, Vit D 10/20/2024 Mixed hyperlipidemia (ICD-10 - E78.2) 10/20/2024 Type 2 diabetes mellitus without complication, without long-term current use of insulin (ICD-10 - E11.9) 10/25/2024 BMI 26.0-26.9,adult (ICD-10 - Z68.26) 10/25/2024 Acute cystitis without hematuria (ICD-10 - N30.00) 12/25/2024 UTI (lower urinary tract infection) (ICD-10 - N39.0) 12/25/2024 Urge incontinence (ICD-10 - N39.41) 01/14/2025 Dysuria (ICD-10 - R30.0) 01/31/2025 Dysuria (ICD-10 - R30.0) 01/31/2025 History of UTI (ICD-10 - Z87.440) 12/25/2024 BMI 26.0-26.9,adult (ICD-10 - Z68.26) 10/20/2024 Low serum vitamin D (ICD-10 - R79.89) 04/07/2024 Low serum vitamin D (ICD-10 - R79.89) 04/07/2024 Depressive disorder (ICD-10 - F32.9) 10/20/2024 Non morbid obesity (ICD-10 - E66.9) 10/20/2024 BMI 26.0-26.9,adult (ICD-10 - Z68.26) Plan Of Treatment Pending Test Test Name Order Date MRI : Spine, Lumbosacral, without contra st 09/08/2023 H-UA 01/31/2025 H-Urine Culture and Sensitivity 02/01/20 25 Insurance Providers Payer Name Payer Address Payer Phone Subscriber Number Group Number Insured Name Patient Relationship to Insured Coverage Start Date Coverage End Date JONATHAN GAMBOA [facility] [id number] [place] [address] [id number] Ailyn Gerber Self - patient is the insured Medications Administered Medication Instructions Date of Administration Dosage Notes Dexamethasone 12/21/2015 1 mL Medical (General) History Medical History History ICD Code Type 2 Diabetes Hyperlipidemia Uterine Fibroids Vitamin D Deficiency Surgical History Surgery Date(Month/Year) 1993 1997 D & C 1998 Gastric Sleeve 02/2019 Hysterectomy, total 07/17/2020 Hospitalization History Reason Date(Month/Year)
--- OUTSIDE RECORDS SUMMARY | 2025-02-02 14:02 | XMS_ITS | Encounter Summary ---
Author Organization [employer] ([place], [place], [place], [place]) Address [address] [place] [address] Care Team Providers Care Tank Setter Helper Name Role Phone Unavailable Primary Care Provider Unavailabl e Encounter Details Date Type Department Care Team (Late st Contact Info) Description 03/19/2019 Transcribed Document [facility] [place] Family Medicine [address] [place] [address] ProviderCarlos MD [address] [place] [address] Social History Tobacco Use Types Packs/Day Years Used Date Smoking Tobacco: Never Assessed Comments Unknown Sex and Gender Information Value Date Recorded Sex Assigned at Not on file Legal Sex Female 6:39 PM CDT Gender Identity Not on file Sexual Orientation Not on file documented as of this encounter Miscellaneous Notes * Cerner Conversion Note - Historical ProviderMD - 03/19/2019 12:01 PM CDT Education-(VTE) / (DVT) Entered On: 03/19/2019 12:06 EDT Performed On: 03/19/2019 12:01 EDT by Diane Martinez Rn Teaching/Learning Assessment Barriers To Learning : None evident Learning Style Preferences Patient : Verbal explanation Diane Martinez Rn - 03/19/2019 12:06 EDT documented in this encounter Plan of Treatment Not on file documented as of this encounter Visit Diagnoses Not on filedocumented in this encounter
--- OUTSIDE RECORDS SUMMARY | 2025-02-02 14:02 | XMS_ITS | Encounter Summary ---
Author Organization [employer] ([place], [place], [place], [place]) Address [address] [place] [address] Care Team Providers Care Coroner Technician Name Role Phone Unavailable Primary Care Provider Unavailabl e Encounter Details Date Type Department Care Team (Late st Contact Info) Description 03/19/2019 Transcribed Document [facility] [place] [facility] [address] [place] [address] ProviderCarlos MD [address] [place] [address] Social History Tobacco Use Types Packs/Day Years Used Date Smoking Tobacco: Never Assessed Comments Unknown Sex and Gender Information Value Date Recorded Sex Assigned at Not on file Legal Sex Female 6:39 PM CDT Gender Identity Not on file Sexual Orientation Not on file documented as of this encounter Miscellaneous Notes * Cerner Conversion Note - Historical ProviderMD - 03/19/2019 5:00 PM CDT Chart Check - Review Order Profile Entered On: 03/19/2019 18:51 EDT Performed On: 03/19/2019 17:00 EDT by Jenny Carter RN Chart Check Powerplans Initiated/Discontinued as Appropriate : Yes All Active Orders Reviewed : Yes Jenny Carter RN - 03/19/2019 18:51 EDT documented in this encounter Plan of Treatment Not on file documented as of this encounter Visit Diagnoses Not on filedocumented in this encounter
--- OUTSIDE RECORDS SUMMARY | 2025-02-02 14:02 | XMS_ITS | Encounter Summary ---
Author Organization [employer] ([place], [place], [place], [place]) [facility] [address] [facility] [place] [address] Care Team Providers Care Optical Engineering Technician Name Role Phone Unavailable Primary Care Provider Unavailabl e Encounter Details Date Type Department Care Team (Late st Contact Info) Description 03/19/2019 Transcribed Document [facility] [facility] [place] [address] ProviderCarlos MD [place] [address] Social History Tobacco Use Types Packs/Day Years Used Date Smoking Tobacco: Never Assessed Comments Unknown Sex and Gender Information Value Date Recorded Sex Assigned at Not on file Legal Sex Female 6:39 PM CDT Gender Identity Not on file Sexual Orientation Not on file documented as of this encounter Miscellaneous Notes * Cerner Conversion Note - Carlos ProviderMD - 03/19/2019 9:38 AM CDT [facility] PreOp Summary Primary Physician: CLARY LAMBERT MD Finalized Date/Time: 03/29/19 08:38:43 Pt. Name: PARI ETHAN Chaparro/Sex: 1975 Female Med Rec #: [id number] Physician: CLARY LAMBERT MD Financial #: [id number] Pt. Type: I Room/Bed: 413/1 Admit/Disch: 03/19/19 04:38:00 - 03/20/19 15:16:00 [place] [facility] [place] Case Times Entry 1 In Preop 03/19/19 07:05:00 Ready for Holding n/a Room Patient Ready for 03/19/19 08:20:00 Surgery Patient Out of Preop 03/19/19 09:17:00 Patient Out of n/a Holding Room Last Modified By: ALLY ARREAGA 03/29/19 08:38:41 [facility] PreOp Case Times Audit 03/29/19 08:38:41 Java Developer: [email or web address] Modifier: [email or web address] <+> 1 Patient Out of Preop 03/19/19 08:27:11 Java Developer: [email or web address] Modifier: [email or web address] <+> 1 Patient Ready for Surgery Finalized By: ALLY ARREAGA Document Signatures Signed By: ALLY ARREAGA 03/29/19 08:38 documented in this encounter Plan of Treatment Not on file documented as of this encounter Visit Diagnoses Not on filedocumented in this encounter
--- OUTSIDE RECORDS SUMMARY | 2025-02-02 14:02 | XMS_ITS | Encounter Summary ---
Author Organization [employer] ([place], [place], [place], [place]) Address [address] [place] [address] Care Team Providers Care Mammal Keeper Name Role Phone Unavailable Primary Care Provider Unavailabl e Encounter Details Date Type Department Care Team (Late st Contact Info) Description 03/19/2019 Transcribed Document [facility] [place] Family Medicine [address] [place] [address] ProviderCarlos MD [address] [place] [address] Social History Tobacco Use Types [...] 12:01 PM CDT Pain Assessment Entered On: 03/19/2019 16:25 EDT Performed On: 03/19/2019 12:55 EDT by Diane Martinez Rn Intervention Information: acetaminophen Performed by Diane Martinez Rn on 03/19/2019 12:50:00 EDT acetaminophen,1000mg IV Piggyback,Right Hand Pain Assessment Pain Assessment : Follow-up assessment Pain Scale Goal : 4 Pain Scale Used : 0-10 Scale Diane Martinez Rn - 03/19/2019 16:25 EDT Pain Scale Intensity : 4 Diane Martinez Rn - 03/19/2019 16:25 EDT Image 4 - Images currently included in the form version of this document have not been included in the text rendition version of the form. documented in this encounter Plan of Treatment Not on file documented as of this encounter Visit Diagnoses Not on filedocumented in this encounter
--- OUTSIDE RECORDS SUMMARY | 2025-02-02 14:02 | XMS_ITS | Encounter Summary ---
Author Organization [employer] ([place], [place], [place], [place]) Address [address] [place] [address] Care Team Providers Care Hair Spring Cutter Name Role Phone Unavailable Primary Care Provider Unavailabl e Encounter Details Date Type Department Care Team (Late st Contact Info) Description 03/10/2019 Transcribed Document [facility] [place] [facility] [place] [address] ProviderCarlos MD [address] [place] [address] Social History Tobacco Use Types Packs/Day Years Used Date Smoking Tobacco: Never Assessed Comments Unknown Sex and Gender Information Value Date Recorded Sex Assigned at Not on file Legal Sex Female 6:39 PM CDT Gender Identity Not on file Sexual Orientation Not on file documented as of this encounter Miscellaneous Notes * Cerner Conversion Note - Carlos ProviderMD - 03/10/2019 11:22 AM CDT PAT Adult Entered On: 03/10/2019 11:25 EDT Performed On: 03/10/2019 11:22 EDT by Anika Stoll RN Height and Weight, Clinical Dosing Height Source : Stated Height Entry Format : [place]io Height, Feet : 5 ft(Converted to: 152 cm, 60 Inch) Height, Inches : 6.5 Inch(Converted to: 0 ft 7 Inch, 16.51 cm) Clinical Height : 168.91 cm Weight Source : Standing scale Weight Entry Format : Refugio Clinical Dosing Weight : 109.45 kg Weight, Pounds : 240.8 lb Body Surface Area (BSA) : 2.18 m2 Body Mass Index : 38.4 kg/m2 (HI) E[place]on Body Weight : 60 kg Anika Stoll RN - 03/10/2019 11:22 EDT Health Histories Smoking Status : Never (less than 100 in lifetime; none in last 30 days) Smokeless Tobacco Status : Never Anika Stoll RN - 03/10/2019 11:22 EDT Social History (As Of: 03/10/2019 11:25:14 EDT) Tobacco: Never (less than 100 in [...] Region : No Tuberculosis Symptoms : None Anika Stoll RN - 03/10/2019 11:22 EDT Anesthesia/Transfusion History Family History of Anesthesia Reaction : No prior transfusion(s) Transfusion History : Prior anesthesia reaction Type of Anesthesia Reaction : Excessive nausea/vomiting Family History of Anesthesia Reaction : None Anika Stoll RN - 03/10/2019 11:22 EDT Functional Assessment Functional ADL Evaluation Index EBN Bathing : Independent (2) Dressing : Independent (2) Toileting : Independent (2) Transferring Bed or Chair : Independent (2) Continence : Independent (2) Feeding : Independent (2) Anika Stoll RN - 03/10/2019 11:22 EDT ADL Index Score : 12 Anika Stoll RN - 03/10/2019 11:22 EDT Advance Directive Patient has Advance Directive *Q : No, patient refuses Advance Directive information Anika Stoll RN - 03/10/2019 11:22 EDT Psychosocial History Do You Have a History of the Following? : Patient denies history Currently in Unsafe Situation : No Tried to Harm Yourself in the Past? : No Thoughts of Harming/Killing Yourself : No Anika Stoll RN - 03/10/2019 11:22 EDT Teaching/Learning Assessment Barriers To Learning : None evident Individuals Taught : Patient Readiness to Learn : Cooperative Anika Stoll RN - 03/10/2019 11:22 EDT Education Topics, Periop Preadmission Perioperative Education Grid Arrival Time/Place : Verbalizes understanding Infection Control : Verbalizes understanding NPO Status/Directions : Verbalizes understanding Preprocedure Preparations : Verbalizes understanding Preprocedure Tests/Labs : Verbalizes understanding Responsible Adult : Verbalizes understanding Take/Hold Medications Pre-Procedure : Verbalizes understanding Anika Stoll RN - 03/10/2019 11:22 EDT General Info Support Person/Patient Navigating Officer : Yes Want Family/Rep/Phys Notified of Admit : No Emergency Contact #1 : Gilberto Emergency Contact #1 Emergency Contact #1 Relationship : spouse Emergency Contact #2 : . Emergency Contact #2 Phone Number : . Emergency Contact #2 Relationship : . Information Obtained From : Patient Primary Language : Sri Lankan Preferred Communication Mode : Verbal Communication Barrier : None Anika Stoll RN - 03/10/2019 11:22 EDT Mark Scale Mark Sensory Perception : No impairment Mark Moisture : Rarely moist Mark Activity : Walks occasionally Mark Mobility : No limitation Mark Nutrition : Adequate Mark Friction and Shear : No apparent problem Mark Score : 21 Anika Stoll RN - 03/10/2019 11:22 EDT Sleep Apnea Risk Assmt Hx of Obstructive Sleep Apnea Diagnosis : No Snore Loudly : Yes Tired, Fatigued, or Sleepy During Day : No Observed Stopping Breathing During Sleep : No Have/Are Being Treated for Hypertension : No BMI Greater Than 35 kg/m2 : Yes Age over 50 Years Old : No Gender Male : No Anika Stoll RN - 03/10/2019 11:22 EDT Electronically signed by Forrest Mahajan Conversion Java Web User Interface Developer Cerner at 11/08/2022 4:28 PM CDT documented in this encounter Plan of Treatment Not on file documented as of this encounter Visit Diagnoses Not on filedocumented in this encounter
--- OUTSIDE RECORDS SUMMARY | 2025-02-02 14:02 | XMS_ITS | Encounter Summary ---
Author Organization [employer] ([place], [place], [place], [place]) Address [address] [place] [address] Care Team Providers Care Conventional Underwriter Name Role Phone Unavailable Primary Care Provider Unavailabl e Encounter Details Date Type Department Care Team (Late st Contact Info) Description 03/19/[address] [facility] [place] [facility] [place] [address] ProviderCarlos MD [facility] [place] [address] Social History Tobacco Use Types [...] 03/19/2019 9:38 AM CDT [facility] Main OR IntraOp Summary Primary Physician: CLARY LAMBERT MD Finalized Date/Time: 03/19/19 10:32:52 Pt. Name: ETHAN GERBER VICTORIANO Chaparro/Sex: 1975 Female Med Rec #: [id number] Physician: CLARY LAMBERT MD Financial #: [id number] Pt. Type: I Room/Bed: [facility]/4 Admit/Disch: 03/19/19 04:38:00 - [place] [facility] [place] Attendance Entry 1 Entry 2 Entry 3 Case Attendee CLARY LAMBERT MD STEINER, JOSHUA, MD MCDONALD, BEVERLY AGUILAR CRNA Role Performed Surgeon/Proceduralist, Surgeon/Proceduralist, GYMNASTICS COACH OR INSTRUCTOR/Nurse Change Manager First Second Time In 03/19/19 09:22:00 03/19/19 09:22:00 03/19/19 09:22:00 Time Out 03/19/19 10:27:00 03/19/19 10:24:00 03/19/19 10:32:00 Procedure Gastrectomy Sleeve Gastrectomy Sleeve Gastrectomy Sleeve Laparoscopic Laparoscopic Laparoscopic Other Attendee Superficial Wound Closed By: Last Modified By: FREDERICK TONEY RN WESSEL, JULIANA, RN WESSEL, JULIANA, RN 03/19/19 10:32:49 03/19/19 10:32:49 03/19/19 10:32:49 Entry 4 Entry 5 Entry 6 Case Attendee FREDERICK TONEY, Usha Romo, Scrub CASI VASQUEZ, Tech Sample Patternmaker Role Performed Dog Trainer, First Scrub, First Scrub, Second Time In 03/19/19 09:22:00 03/19/19 09:22:00 03/19/19 09:22:00 Time Out 03/19/19 10:32:00 03/19/19 10:32:00 03/19/19 10:32:00 Procedure Gastrectomy Sleeve Gastrectomy Sleeve Gastrectomy Sleeve Laparoscopic Laparoscopic Laparoscopic Other Attendee Superficial Wound Closed By: Last Modified By: FREDERICK TONEY RN WESSEL, JULIANA, RN WESSEL, JULIANA, RN 03/19/19 10:32:49 03/19/19 10:32:49 03/19/19 10:32:49 Entry 7 Entry 8 Entry 9 Case Attendee Pravin Aldrich, REP - SSI OTHER, ATTENDEE #1 Hubert Arthur, Respiratory Therapist Reg Role Performed Sand Operator, Ancillary Observer Observer Time In 03/19/19 09:22:00 03/19/19 09:22:00 03/19/19 09:22:00 Time Out 03/19/19 10:32:00 03/19/19 10:24:00 03/19/19 10:24:00 Procedure Gastrectomy Sleeve Gastrectomy Sleeve Gastrectomy Sleeve Laparoscopic Laparoscopic Laparoscopic Other Attendee MUSA SANTOS Superficial Wound Closed By: Last Modified By: FREDERICK TONEY RN WESSEL, JULIANA, RN WESSEL, JULIANA, RN 03/19/19 10:32:49 03/19/19 10:32:49 03/19/19 10:32:49 Entry 10 Entry 11 Case Attendee OTHER, ATTENDEE #2 OTHER, ATTENDEE #3 Role Performed Vendor Vendor Time In 03/19/19 09:22:00 03/19/19 09:22:00 Time Out 03/19/19 10:24:00 03/19/19 10:24:00 Procedure Gastrectomy Sleeve Gastrectomy Sleeve Laparoscopic Laparoscopic Other Attendee ROSLYN MARY Superficial Wound Closed By: Last Modified By: FREDERICK TONEY RN WESSEL, JULIANA, RN 03/19/19 10:32:49 03/19/19 10:32:49 [facility] IntraOp Case Attendance Audit 03/19/19 10:32:49 Retail Bakery Manager: CLIFTON Modifier: CLIFTON 1 <*> Procedure Gastrectomy Sleeve Laparoscopic 2 <*> Procedure Gastrectomy Sleeve Laparoscopic 3 <+> Time Out 3 <*> Procedure Gastrectomy Sleeve Laparoscopic 4 <+> Time Out 4 <*> Procedure Gastrectomy Sleeve Laparoscopic 5 <+> Time Out 5 <*> Procedure Gastrectomy Sleeve Laparoscopic 6 <+> Time Out 6 <*> Procedure Gastrectomy Sleeve Laparoscopic 7 <+> Time Out 7 <*> Procedure Gastrectomy Sleeve Laparoscopic 8 <*> Procedure Gastrectomy Sleeve Laparoscopic 9 <*> Procedure Gastrectomy Sleeve Laparoscopic 10 <*> Procedure Gastrectomy Sleeve Laparoscopic 11 <*> Procedure Gastrectomy Sleeve Laparoscopic 03/19/19 10:29:54 Retail Bakery Manager: [email or web address] Modifier: [email or web address] 1 <+> Time Out 1 <*> Procedure Gastrectomy Sleeve Laparoscopic 2 <+> Time Out 2 <*> Procedure Gastrectomy Sleeve Laparoscopic 3 <*> Procedure Gastrectomy Sleeve Laparoscopic 4 <*> Procedure Gastrectomy Sleeve Laparoscopic 5 <*> Procedure Gastrectomy Sleeve Laparoscopic 6 <*> Procedure Gastrectomy Sleeve Laparoscopic 7 <*> Procedure Gastrectomy Sleeve Laparoscopic 8 <+> Time Out 8 <*> Procedure Gastrectomy Sleeve Laparoscopic 9 <+> Time Out 9 <*> Procedure Gastrectomy Sleeve Laparoscopic 10 <+> Time In 10 <+> Time Out 10 <*> Procedure Gastrectomy Sleeve Laparoscopic 11 <+> Time In 11 <+> Time Out 11 <*> Procedure Gastrectomy Sleeve Laparoscopic 03/19/19 09:41:25 Retail Bakery Manager: CLIFTON Modifier: CLIFTON 1 <*> Procedure Gastrectomy Sleeve Laparoscopic 2 <+> Time In 2 <*> Procedure Gastrectomy Sleeve Laparoscopic 3 <+> Time In 3 <*> Procedure Gastrectomy Sleeve Laparoscopic 4 <+> Time In 4 <*> Procedure Gastrectomy Sleeve Laparoscopic 5 <+> Time In 5 <*> Procedure Gastrectomy Sleeve Laparoscopic 6 <+> Time In 6 <*> Procedure Gastrectomy Sleeve Laparoscopic 7 <+> Time In 7 <*> Procedure Gastrectomy Sleeve Laparoscopic 8 <+> Time In 8 <*> Procedure Gastrectomy Sleeve Laparoscopic 9 <+> Time In 9 <*> Procedure Gastrectomy Sleeve Laparoscopic <+> 10 Case Attendee <+> 10 Role Performed <+> 10 Procedure <+> 10 Other Attendee <+> 11 Case Attendee <+> 11 Role Performed <+> 11 Procedure <+> 11 Other Attendee [facility] IntraOp Case Times Entry 1 Patient In Room Time 03/19/19 09:22:00 Out Room Time 03/19/19 10:32:00 Anesthesia Start Time 03/19/19 09:22:00 Stop Time 03/19/19 10:32:00 Anesthesia Ready 03/19/19 09:22:00 Surgery / Procedure Times Start Time 03/19/19 09:38:00 Stop Time 03/19/19 10:21:00 Last Modified By: FREDERICK TONEY RN 03/19/19 10:32:45 [facility] IntraOp Case Times Audit 03/19/19 10:32:45 Retail Bakery Manager: [email or web address] Modifier: [email or web address] <+> 1 Out Room Time <+> 1 Stop Time 03/19/19 10:22:00 Retail Bakery Manager: [email or web address] Modifier: [email or web address] <+> 1 Stop Time 03/19/19 09:38:29 Retail Bakery Manager: [email or web address] Modifier: [email or web address] <+> 1 Start Time [facility] IntraOp Cautery Entry 1 ESU Identification Cautery Type Monopolar ESU ID Number [id number] ID Type Hospital Number Cautery Settings Cut Setting 1 Coag Setting 30 ESU Grounding Pad Ground Pad Type Adult Grounding Pad Site Left thigh Grounding Pad FREDERICK TONEY RN Applied By Grounding Pad Site Warm, dry and intact Skin Condition Before Cautery Grounding Pad Site Unchanged Skin Condition After Cautery Last Modified By: FREDERICK TONEY RN 03/19/19 09:34:25 [facility] IntraOp Communication Entry 1 Communication To Family/Significant other Comment START Communication By FREDERICK TONEY RN Last Modified By: FREDERICK TONEY RN 03/19/19 09:34:31 [facility] IntraOp Counts Verification Entry 1 Procedure Gastrectomy Sleeve Laparoscopic Count Info Count Type Sponge, Sharps, Instrument, Miscellaneous Counts Verification Baseline/pre-procedure Sequence Count Results Correct, surgeon notified Counts Performed By Count Performed By Usha Steven, Kinub (Scrub) Tech Count Performed By FREDERICK TONEY RN (RN) Last Modified By: FREDERICK TONEY RN 03/19/19 09:34:43 [facility] IntraOp Counts Final Entry 1 Procedure Gastrectomy Sleeve Laparoscopic Final Count Info Count Type Sponge, Sharps, Miscellaneous Counts Verification Skin Closure/end of Sequence procedure Count Results Correct, surgeon notified Counts Performed By Count Performed By CASI VASQUEZ, (Scrub) Sample Patternmaker Count Performed By FREDERICK TONEY RN (RN) Last Modified By: FREDERICK TONEY RN 03/19/19 10:20:26 [facility] IntraOp Counts Final Audit 03/19/19 10:20:26 Retail Bakery Manager: [email or web address] Modifier: [email or web address] 1 <*> Procedure Gastrectomy Sleeve Laparoscopic 1 <+> Count Performed By (Scrub) [facility] IntraOp Cultures and Spec Summary Entry 1 Cultrures and Specimens Specimen Ordered: Yes Test(s) Gross Analysis/Path-Lab Requested/Final Disposition Last Modified By: FREDERICK TONEY RN 03/19/19 09:34:55 [facility] IntraOp Departure from OR Entry 1 Integumentary Assessment Transfer/Handoff Transfer to PACU Phase I Handoff Method Bedside/Face to face Post-op Transport Bed (including Via specialty) Patient Transport FREDERICK TONEY RN, Accompanied by BEVERLY CRAIN CRNA Last Modified By: FREDERICK TONEY RN 03/19/19 09:34:57 [facility] IntraOp Dressing and Packing Entry 1 Type Dressing Location abdomen Wound Dressing Item 2x2's Applied By Usha Steven, Sample Patternmaker Other Comments 2 X 2 COVADERMS APPLIED TO TROCAR SITES Last Modified By: FREDERICK TONEY RN 03/19/19 09:35:01 [facility] IntraOp Fire Risk Assessment Entry 1 Fire Info Surgical Site or 0- No Incision Above the Xyphoid Open O2 Source 0- No (Mask or Cannula) Available Ignition 1- Yes (ESU, Laser, Light Source) Fire Risk 1 Assessment Score Fire Score Fire Risk Yes Assessment Complete Fire Risk FREDERICK TONEY RN Assessment Verified By Fire Risk 03/19/19 09:22:00 Assessment Verified Date/Time Fire Risk Standard Fire Yes Safety Precautions Followed Last Modified By: FREDERICK TONEY RN 03/19/19 09:35:16 [facility] IntraOp General Case Supervisor Prop Making 1 Case Information OR OR 03 S[facility] Case Level 1 Room Verified Yes Wound Class II - Clean-Contaminated Specialty SN General Anesthesia Type General ASA Class 3 Diagnosis Preop Diagnosis MORBID OBESITY Postop Same As Preop Yes Postop Diagnosis MORBID OBESITY Last Modified By: FREDERICK TNOEY RN 03/19/19 09:35:25 [facility] IntraOp Implant Log Entry 1 Entry 2 Entry 3 Type Implant (Synthetic) Implant (Synthetic) Implant (Synthetic) Implant Log Implant Type Other Other Other Tissue Implant Type Implant REINFORCE STPL SEAMGRD REINFORCE STPL SEAMGRD REINFORCE STPL SEAMGRD Identification FLEX [id number] FLEX [id number] FLEX [id number] Description Implant Quantity 1 2 2 Implant Site OPSITE OPSITE OPSITE Implant Identification Model Number Implant Identification Serial Number Implant [id number] Identification Lot Number Implant Wl Leonidas & Assc:Med Prdt Wl Leonidas & Assc:Med Prdt Wl Leonidas & Assc:Med Prdt Identification Cigarette Maker Name: Implant [id number] Identification Catalog Number Implant Size Implant Has an Yes Yes Yes Expiration Date Implant Expiration 10/18/21 12/18/21 12/18/21 Date Wasted Radioactive Material Time Implanted Tissue Implant Continue for Tissue Implant Documentation Tissue Identification Number Graft Prep Per Cigarette Maker Instructions: Tissue Preparation Method: Reconstitution Solution: Reconstitution Solution Lot Number Reconstitution Solution Expiration Date: Thawing Solution Thawing Solution Lot Number Thawing Solution Expiration Date Preparation Materials, Other Preparation Materials, Other Lot Number Preparation Materials, Other Expiration Date Tissue Prepared/Processed By Cigarette Maker Paperwork Completed Implant Type Comment Last Modified By: FREDERICK TONEY RN WESSEL, JULIANA, RN WESSEL, JULIANA, RN 03/19/19 09:36:24 03/19/19 09:36:24 03/19/19 09:36:24 [facility] IntraOp Intraoperative Assessment Entry 1 Handoff Method Bedside/Face to face Valid History / Yes Physical in Chart Preoperative Yes Checklist Reviewed/Evaluated Allergies Reviewed Yes Patient is Latex No Sensitive Isolation Not applicable Precautions Noted Level of WDL Consciousness (WDL = Alert, Oriented to Person, Place, and Time) Skin Assessment Yes Verified Present Upon IVs Arrival to OR Last Modified By: FREDERICK TONEY RN 03/19/19 09:36:30 [facility] IntraOp Intraoperative Equipment Entry 1 Equipment Equipment Other Intraop Monitoring Antiembolic Devices Antiembolic Devices Sequential compression device, knee high Antiembolic Device Bilateral Location Scopes Photo/Video Documentation Last Modified By: FREDERICK TONEY RN 03/19/19 09:36:34 [facility] IntraOp Medication Admin Entry 1 Entry 2 Medication/Irrigant Ancef 1Gm powder - Anesthetic [place]-Zarak [id number] Combo Med List Time Administered Route of TOPICAL LOCAL Administration Dose Dose 1 60 Unit of Measure gram ml Volume QS QS Administered By CLARY LAMBERT MD ZARAK, ALBERTO, MD Procedure Irrigation Irrigant Volume In Irrigant Volume Out Last Modified By: FREDERICK TONEY RN WESSEL, JULIANA, RN 03/19/19 09:36:42 03/19/19 09:36:42 [facility] IntraOp Patient Positioning Entry 1 Procedure Gastrectomy Sleeve Laparoscopic Body Position Supine Left Arm Position Secured on padded arm board Right Arm Position Secured on padded arm board Left Leg Position Uncrossed, parallel Right Leg Position Uncrossed, parallel Feet Uncrossed Yes Pressure Points Yes Checked Positioning Devices Arm Board, Foot Board, Safety Strap, Thighs, Safety Strap, Arm(s) Positioned By FREDERICK TONEY RN, BEVERLY CRAIN, MYRON, CLARY LAMBERT MD Position Verified Positioning Yes Verified by Anesthesia Positioning Yes Verified by Surgeon Last Modified By: FREDERICK TONEY RN 03/19/19 09:36:47 [facility] IntraOp Sign In Entry 1 Patient, Site, Yes Procedure Identified Surgical Consent Yes Confirmed Relevant Surgical Yes Documents Available Surgical Site N/A Marked by person performing procedure Anesthesia Machine Yes Check Completed Medication Checks Yes Completed Allergies Yes Airway Difficult Yes Airway/Aspiration Risk Difficult Yes Airway/Aspiration Intervention Equipment Available Blood Loss Risk Yes Blood Loss Yes Intervention Equipment Prepared and Ready Blood Identifiers Not applicable Verified Per Policy Hypothermia Risk Yes Warming Measures Yes Taken Last Modified By: FREDERICK TONEY RN 03/19/19 09:36:51 [facility] Intra Op Sign Out Entry 1 RN Confirmation Surgical Yes Procedure(s) Identified Instrument, Sponge Yes and Sharps Counts Correct/Documented Equipment Problems N/A Documented Specimen Labeled Yes Correctly Urinary Catheter N/A Documented in IView Gutierrez Patient Yes Recovery Concerns Reviewed with Anesthesia Provider, Surgeon and RN Gutierrez Patient Yes Management Concerns Reviewed with Anesthesia Provider, Surgeon and RN Safety Checklist Yes Elements Complete? RN Sign Out FREDERICK TONEY RN Signature RN Sign Out 03/19/19 10:32:00 Signature Date/Time Plan of Care Outcome - [...] of Care Outcome - Xray/Images OUTCOME STATEMENT: Goal met Absence of observable signs or symptoms of radiation injury Plan of Care Outcome - Counts OUTCOME STATEMENT: Goal met Absence of signs and symptoms of injury related to extraneous objects Last Modified By: FREDERICK TONEY RN 03/19/19 10:32:48 [facility] Intra Op Sign Out Audit 03/19/19 10:32:48 Retail Bakery Manager: CLIFTON Modifier: [email or web address] <+> 1 RN Sign Out Signature Date/Time [facility] IntraOp Skin Prep Entry 1 Procedure Gastrectomy Sleeve Laparoscopic Prescribed Yes Pre-Surgical Prep Completed Prep Area ABDOMEN Intraop Prep Integumentary WDL Assessment WDL Prep Agents Chloraprep Prep by FREDERICK TONEY RN Hair Removal Methods No hair removal performed Last Modified By: FREDERICK TONEY RN 03/19/19 09:37:02 [facility] IntraOp Surgical Procedures Entry 1 Procedure Gastrectomy Sleeve Laparoscopic Additional LAPAROSCOPIC SLEEVE Procedure GASTRECTOMY Description Primary Procedure Yes Primary Surgeon CLARY LAMBERT MD Start 03/19/19 09:38:00 Stop 03/19/19 10:21:00 Anesthesia Type General Specialty SN General Wound Class II - Clean-Contaminated Last Modified By: FREDERICK TONEY RN 03/19/19 10:22:01 [facility] IntraOp Surgical Procedures Audit 03/19/19 10:22:01 Retail Bakery Manager: [email or web address] Modifier: [email or web address] <+> 1 Stop 03/19/19 09:49:40 Retail Bakery Manager: [email or web address] Modifier: [email or web address] <+> 1 Start [facility] IntraOp Time Out Entry 1 Procedure to be Gastrectomy Sleeve Performed Laparoscopic Time Out Time Out Pause Time 03/19/19 09:37:00 All activity Yes suspended (unless life threatening emergency) Team Verbally Correct patient Confirms Information identity, Correct side and site are marked, Consent form is present and accurate, Agreement on the procedure to be done, Correct patient position, Relevant images/results properly labeled/appropriately displayed, Confirm antibiotics have been administered, Confirm the skin prep has dried, Confirm prosthesis/implant/devic e is present, Performed in location of procedure after prepped/draped, Performed before each procedure if multiple procedures, Reconcile problems if responses among team members differ Antibiotic Yes Prophylaxis Administered Or In Progress Within the Last 60 Minutes Beta Amarjit N/A Administered Venous Yes Thromboembolism Prophylaxis Required Anticipated Critical Events Surgeon Critical or unexpected steps, Special equipment need, Special instrumentation need Anesthesia Provider Patient specific concerns Nursing Assures Sterility of instruments, Implant Availability Essential Imaging N/A Labeled and Displayed Last Modified By: FREDERICK TONEY RN 03/19/19 09:38:34 [facility] IntraOp Time Out Audit 03/19/19 09:38:34 Retail Bakery Manager: [email or web address] Modifier: [email or web address] 1 <+> Time Out Pause Time 1 <*> Procedure to be Performed Gastrectomy Sleeve Laparoscopic Case Comments <None> Finalized By: FREDERICK TONEY RN Document Signatures Signed By: FREDERICK TONEY RN 03/19/19 10:32 documented in this encounter Plan of Treatment Not on file documented as of this encounter Visit Diagnoses Not on filedocumented in this encounter
--- OUTSIDE RECORDS SUMMARY | 2025-02-02 14:02 | XMS_ITS | Encounter Summary ---
Author Organization [email or web address] ([place], [place], [place], [place]) Address [address] [place] [address] Care Team Providers Care Assistant To The Director Name Role Phone Unavailable Primary Care Provider Unavailabl e Encounter Details Date Type Department Care Team (Late st Contact Info) Description 03/19/2019 Transcribed Document [facility] [place] Family Medicine [facility] [place] [address] ProviderCarlos MD [address] [place] [address] Social History Tobacco Use Types Packs/Day Years Used Date Smoking Tobacco: Never Assessed Comments Unknown Sex and Gender Information Value Date Recorded Sex Assigned at Not on file Legal Sex Female 6:39 PM CDT Gender Identity Not on file Sexual Orientation Not on file documented as of this encounter Miscellaneous Notes * Cerner Conversion Note - Carlos Early MD - 03/19/2019 10:49 AM CDT Patient: ETHAN GERBER Age: 43 Years Sex: Female : 1975 OPERATIVE REPORT DATE OF PROCEDURE: 03/19/2019 PREOPERATIVE DIAGNOSIS(ES): Morbid obesity POSTOPERATIVE DIAGNOSIS(ES): Morbid obesity PROCEDURE: 1. Laparoscopic sleeve gastrectomy SURGEON: Carlton Hollingsworth M.D. EXPLOSIVE ORDNANCE SPECIALIST: Pravin Mo MD ANESTHESIA: General. SPECIMEN: Stomach. INDICATION FOR PROCEDURE: is a 43-year-old patient with residential history of morbid obesity, has tried multiple conservative therapies for losing weight and they were all unsuccessful. After discussing all the risks and benefits of procedure and reviewing all the medical history, the patient decided to consent for it. DESCRIPTION OF PROCEDURE: Patient was brought to the operating room, was placed on the operating table in supine position. General endotracheal tube anesthesia was given by the Anesthesia team. The patient was prepped and draped in the standard fashion, time-out was called. Patient and procedure were correct. We accessed the abdominal cavity using a Veress needle at Mai's point and insufflated up to 17mmHg. Then a supraumbilical 5 mm incision was made. We used the Optiview technique with a 5 mm trocar and a 5 mm camera to access the abdominal cavity. A quick survey of abdominal cavity showed no intra-abdominal organ injury at entry. At this point, the Veress needle was removed and we proceeded to insert our accessory working trocars. We placed a 5 mm incision in the subxiphoid area to place a Heriberto liver retractor. The left lobe of the liver was retracted, then we proceeded to place the left-sided working trocars. A 5 mm left subcostal along the anterior axillary line and another 5 mm trocar along the midclavicular line. Then the right upper quadrant trocars were placed. One 15mm trocar along the anterior axillary line and a 5mm one along the midclavicular line. Once in the abdominal cavity, we examined the hiatus. No hiatal hernia was identified. We proceed to dissect the angle of His exposing the left betsy. Then we proceeded to dissect the greater omentum from the greater curvature of the stomach using the [place] tip LigaSure. We went all the way to the fundus of stomach, releasing all the adhesions and we visualized the left crura again. When it was done, we proceeded to place the 54-Romanian bougie down the esophagus into the stomach under direct visualization. When it was in the antrum, we proceeded to staple the stomach in a parallel manner to the greater curvature, creating a sleeve gastrectomy using the [place] stapler. We used green loads, all reinforced with Seamguard all the way from the antrum to the fundus of stomach avoiding to narrow the area next to the incisura angularis. The resected stomach was moved aside over the RUQ and, we proceeded to reinforce the staple line using a running reabsorbable Stratafix 2-[address] from the proximal staple line to the distal staple line, reattaching the greater omentum to the loraine-greater curvature. Staple line was inspected and full hemostasis was achieved. Then we removed the PolySuiteson liver retractor and proceeded to use the EndoCatch to be able to remove the stomach specimen, avoiding contact with the wound through the the 15 mm right sided trocar and this was closed using a Gabriel-Tarik suture with #1 Vicryl at the fascia level. After this, we proceeded to reduce pneumoperitoneum, remove all trocars and irrigate the stomach retrieval site with normal saline. We closed all incisions using raegan. Dry dressings applied to all incisions The patient tolerated very well the procedure, was sent to recovery room extubated. Instrument and lap count was correct x2. documented in this encounter Plan of Treatment Not on file documented as of this encounter Visit Diagnoses Not on filedocumented in this encounter
--- OUTSIDE RECORDS SUMMARY | 2025-02-02 14:02 | XMS_ITS | Encounter Summary ---
Author Organization [employer] ([place], [place], [place], [place]) Address [address] [place] [address] Care Team Providers Care Geologist Name Role Phone Unavailable Primary Care Provider Unavailabl e Encounter Details Date Type Department Care Team (Late st Contact Info) Description 03/19/2019 Transcribed Document [facility] [place] Family Medicine [address] [place] [address] ProviderCarlos MD [address] [place] [address] Social History Tobacco Use Types Packs/Day Years Used Date Smoking Tobacco: Never Assessed Comments Unknown Sex and Gender Information Value Date Recorded Sex Assigned at Not on file Legal Sex Female 6:39 PM CDT Gender Identity Not on file Sexual Orientation Not on file documented as of this encounter Miscellaneous Notes * Cerner Conversion Note - Carlos ProviderMD - 03/19/2019 3:53 PM CDT Initial Discharge Planning Entered On: 03/19/2019 15:55 EDT Performed On: 03/19/2019 15:53 EDT by CASSIA AMIN RN-Charge Out Clerk Initial Assessment I Previously Documented Living Environment : No qualifying data available. Living Situation : Home Patient Lives With : Spouse Emergency Contact #1 : Gilberto Emergency Contact #1 Emergency Contact #1 Relationship : spouse Emergency Contact #2 : . Emergency Contact #2 Phone Number : . Emergency Contact #2 Relationship : . Enter Doctors Name : HARRIS FELICIANO Does Patient have PCP Listed? : Yes CASSIA AMIN RN-Charge Out Clerk - 03/19/2019 15:53 EDT Discharge Needs I Current Home Treatment/Equipment : Current Home Treatment/Equipment No qualifying data available. CASSIA AMIN RN-Charge Out Clerk - 03/19/2019 15:53 EDT Narrative Note Narrative Note : PRESENTED TO [facility] FOR ELECTIVE LAPAROSCOPIC SLEEVE GASTRECTOMY.. H/O MORIBID OBESITY.. CHART REVIEWED AND CM WILL FOLLOW FOR D/C NEEDS.. NONE IMMEDIATELY IDENTIFIED.. PROCEDURE PERFORMED TODAY 03-19-19..CASSIA FLORES RN-Charge Out Clerk - 03/19/2019 15:53 EDT Electronically signed by Zaina [facility] Conversion Lace Machine Operator Cerner at 11/08/2022 4:28 PM CDT documented in this encounter Plan of Treatment Not on file documented as of this encounter Visit Diagnoses Not on filedocumented in this encounter
--- OUTSIDE RECORDS SUMMARY | 2025-02-02 14:02 | XMS_ITS | Encounter Summary ---
Author Organization [employer] ([place], [place], [place], [place]) Address [address] [place] [address] Care Team Providers Care Plaster Block Layer Name Role Phone Unavailable Primary Care Provider Unavailabl e Encounter Details Date Type Department Care Team (Late st Contact Info) Description 03/19/2019 Transcribed Document [place] Family Medicine [facility] [place] [address] ProviderCarlos MD [address] [place] [address] Social History Tobacco Use Types Packs/Day [...] 03/19/2019 9:38 AM CDT [facility] Main OR PACU Summary Primary Physician: CLARY LAMBERT MD Finalized Date/Time: 03/19/19 11:33:33 Pt. Name: PREM GERBERJOSHUA Chaparro/Sex: 1975 Female Med Rec #: [id number] Physician: CLARY LAMBERT MD Financial #: [id number] Pt. Type: I Room/Bed: [facility] [place]/ Admit/Disch: 03/19/19 04:38:00 - Institution: [facility] Main OR PACU Case Times Entry 1 In PACU I 03/19/19 10:35:00 Ready for PACU 03/19/19 11:35:00 Discharge Discharge from PACU 03/19/19 11:35:00 I Last Modified By: Windy Hyatt RN 03/19/19 11:33:28 Finalized By: Edmar, Windy, RN Document Signatures Signed By: Windy Hyatt RN 03/19/19 11:33 Electronically signed by Forrest Mahajan Conversion Automobile Sales Consultant Cerner at 11/08/2022 4:20 PM CDT documented in this encounter Plan of Treatment Not on file documented as of this encounter Visit Diagnoses Not on filedocumented in this encounter
--- OUTSIDE RECORDS SUMMARY | 2025-02-02 14:02 | XMS_ITS | Clinical Summary ---
Author Organization [employer] ([place], [place], [place], [place]) Address [address] [place] [address] Care Team Providers Care Director Part Name Role Phone Unavailable Primary Care Provider [...]
--- OUTSIDE RECORDS SUMMARY | 2025-02-02 14:02 | XMS_ITS | Encounter Summary ---
Author Organization [employer] ([place], [place], [place], [place]) Address [address] [place] [address] Care Team Providers Care Vp Ad Sales West Name Role Phone Unavailable Primary Care Provider Unavailabl e Encounter Details Date Type Department Care Team (Late st Contact Info) Description 02/08/2019 Transcribed Document [facility] [place] Family Medicine [facility] [place] [address] ProviderCarlos MD [address] [place] [address] Social History Tobacco Use Types Packs/Day Years Used Date Smoking Tobacco: Never Assessed Comments Unknown Sex and Gender Information Value Date Recorded Sex Assigned at Not on file Legal Sex Female 6:39 PM CDT Gender Identity Not on file Sexual Orientation Not on file documented as of this encounter Miscellaneous Notes * Cerner Conversion Note - Carlos Early MD - 02/08/2019 7:29 AM CDT DATE OF PROCEDURE: 02/01/2019 PREOPERATIVE DIAGNOSIS(ES): 1. Obesity. 2. Dyspepsia. POSTOPERATIVE DIAGNOSIS(ES): 1. Obesity. 2. Dyspepsia. PROCEDURE: Esophagogastroduodenoscopy with biopsy. SURGEON: Gonzalez Mo MD FINDINGS: Normal. OPERATION/PROCEDURE DESCRIPTION: After obtaining informed consent, the patient was taken to the endoscopy unit. IV sedation was administered and a bite block was placed into position. The patient's oropharynx was cannulated under direct vision and the scope was advanced distally through the oropharynx into the esophagus. There was no evidence of any abnormalities. First and second portions of the duodenum were normal. Gastric biopsies were obtained for H. pylori. Spontaneous hemostasis was noted. The scope was withdrawn and the patient was taken to the recovery area. Gonzalez Mo M.D. Dict: 02/08/2019 07:29:00 Trans: 02/08/2019 07:51:14 CC1: Gonzalez oM M.D. documented in this encounter Plan of Treatment Not on file documented as of this encounter Visit Diagnoses Not on filedocumented in this encounter
--- OUTSIDE RECORDS SUMMARY | 2025-02-02 14:02 | XMS_ITS | Encounter Summary ---
Author Organization [employer] ([place], [place], [place], [place]) Address [address] [place] [address] Care Team Providers Care Communication And Outreach Manager Name Role Phone Unavailable Primary Care Provider Unavailabl e Encounter Details Date Type Department Care Team (Late st Contact Info) Description 03/19/2019 Transcribed Document [facility] [place] Family Medicine [address] [place] [address] ProviderCarlos MD [facility] [place] [address] Social History Tobacco Use Types Packs/Day Years Used Date Smoking Tobacco: Never Assessed Comments Unknown Sex and Gender Information Value Date Recorded Sex Assigned at Not on file Legal Sex Female 6:39 PM CDT Gender Identity Not on file Sexual Orientation Not on file documented as of this encounter Miscellaneous Notes * Cerner Conversion Note - Carlos ProviderMD - 03/19/2019 6:00 PM CDT Pain Assessment Entered On: 03/20/2019 6:27 EDT Performed On: 03/19/2019 19:23 EDT by Jeevan Winchester RN Intervention Information: acetaminophen Performed by Jenny Carter RN on 03/19/2019 19:18:00 EDT acetaminophen,1000mg IV Piggyback,Peripheral Line 1 Pain Assessment Pain Assessment : Follow-up assessment Pain Scale Goal : 4 Pain Scale Used : 0-10 Scale Location : Abdominal Onset : Gradual Quality : Stabbing Jeevan Winchester RN - 03/20/2019 6:25 EDT Pain Scale Intensity : 3 Jeevan Winchester RN - 03/20/2019 6:25 EDT Image 4 - Images currently included in the form version of this document have not been included in the text rendition version of the form. documented in this encounter Plan of Treatment Not on file documented as of this encounter Visit Diagnoses Not on filedocumented in this encounter
[2025-02-02 14:05] LABS: Microscopic, Urine URINE MICROSCOPIC (MICROSCOPIC)
[2025-02-02 14:52] LABS: Bilirubin,Urine Negative (Negative); Color,Urine YELLOW (Yellow); Glucose,Urine (UA) Negative (Negative); Ketones,Urine Negative (Negative); Leukocyte Esterase,Urine Negative (Negative); PH,Urine 6.0 (5.0-8.5); Protein,Urine Negative (Negative); Specific Gravity, Urine 1.020 (1.005-1.030); Urobilinogen,Urine 0.2 EU/dl (0.2)
[2025-02-02 15:02] LABS: Bacteria,Urine 4+ /lpf
== END 2025-02-02 23:59 | disposition home or self-care (01) ==
LOC: LAB 13:59
PROVIDERS: PCP Family Medicine; Visit Provider Family Medicine
DX: R30.0 Dysuria (principal); Z87.440 Personal history of urinary (tract) infections
CPT/HCPCS: 81001; 87086; 87088; 87186

== ENCOUNTER 2025-04-29 15:24 | Outpatient (CLI) | payer BC, SELFPAY | END 2025-04-29 23:59 | disposition home or self-care (01) | LOC: LAB 15:24 | PROVIDERS: PCP Family Medicine; Visit Provider Family Medicine | DX: N39.0 Urinary tract infection, site not specified (principal) | CPT/HCPCS: 87086; 87088; 87186 ==